=== PATIENT | male | born 1940 | race Caucasian/White ===

== ENCOUNTER 2019-03-07 05:23 | Inpatient (IN) | payer MEDICARE, OTHER ==
--- NOTE | 2019-03-07 05:32 | ED Physician Documentation ---
PD HPI Fall - Stated complaint Stated Complaint: NOSE/HEAD INJ/GLF - History obtained from History obtained from: Patient - History of Present Illness Mechanism of injury: Syncope Fall distance: Standing position Where injury occurred: Home Timing - onset: How many minutes ago (approximately 30-45 minutes [employer]) Injury(ies) location: Head, Face Pain level now: 2 Associated symptoms: No: LOC, AMS, Neck pain Contributing factors: No: Anticoagulated, Intoxicated Recently seen: Clinic (seen by his urologist 2 days ago for 1-month post-procedure f/u; patient says he was told he has a urinary infection and was prescribed cipro (has rx with him but has not started taking it yet)) - Additional information Additional information: got up to use bathroom (was in bed) and became lightheaded by the time he got to the bathroom, had generalized weakness and fell to the floor. Uncertain if he lost consciousness, says he doesn't think he did. has nasal and forehead injury with pain in these areas. Review of Systems Constitutional: reports: Reviewed and negative Eyes: denies: Loss of vision, Decreased vision Nose: reports: Other (nasal pain and laceration) Cardiac: reports: Reviewed and negative Respiratory: reports: Reviewed and negative GI: reports: Reviewed and negative : denies: Dysuria, Frequency Skin: reports: Abrasion (s) (left hand), Laceration (s) (nasal) Musculoskeletal: reports: Reviewed and negative Neurologic: reports: Generalized weakness (resolved), Headache, Head injury. denies: Focal weakness, Numbness, Confused, Altered mental status PD PAST MEDICAL HISTORY - Past Medical History Past Medical History: Yes Cardiovascular: Hypertension, High cholesterol Endocrine/Autoimmune: Type 2 diabetes - Present Medications Home Medications: Ambulatory Orders Medication Instructions Recorded Confirmed Amlodipine Besylate 10 mg PO DAILY 03/07/19 03/07/19 Atenolol 25 mg PO DAILY 03/07/19 03/07/19 Cholecalciferol (Vitamin D3) 1,000 unit PO DAILY 03/07/19 03/07/19 [Vitamin D3] Ciprofloxacin [Cipro] 250 mg PO DAILY 03/07/19 03/07/19 Finasteride 5 mg PO DAILY 03/07/19 03/07/19 Pravastatin Sodium 10 mg PO DAILY 03/07/19 03/07/19 Tamsulosin HCl [Flomax] 0.4 mg PO DAILY 03/07/19 03/07/19 hydroCHLOROthiazide 12.5 mg PO DAILY 03/07/19 03/07/19 [Hydrochlorothiazide] metFORMIN [Glucophage] 1,000 mg PO BID 03/07/19 03/07/19 - Allergies Allergies/Adverse Reactions: Allergies Allergy/AdvReac Type Severity Reaction Status Date / Time Penicillins Allergy Unknown Verified 03/07/19 05:35 - Social History Does the pt smoke?: No - Immunizations Immunizations are current?: Yes PD ED PE NORMAL - Vitals Vital signs reviewed: Yes - General General: Alert and oriented X 3, No acute distress, Well developed/nourished - HEENT HEENT: PERRL, EOMI, Moist mucous membranes - Neck Neck: Supple, no meningeal sign, Other (mild tenderness to palpation right low paracervical spine without obvious deformity) - Cardiac Cardiac: RRR, No murmur - Respiratory Respiratory: No respiratory distress, Clear bilaterally - Abdomen Abdomen: Soft, Non tender, Non distended - Back Back: No CVA TTP - Derm Derm: Normal color, Warm and dry - Extremities Extremities: No deformity, No tenderness to palpate, Normal ROM s pain, Other (skin tears to dorsum of left hand without bony tenderness) - Neuro Neuro: Alert and oriented X 3, chief minister 2-12 intact, No motor deficit, No sensory deficit, Normal speech Eye Opening: Spontaneous Motor: Obeys Commands Verbal: Oriented GCS Score: 15 PD ED PE EXPANDED - HEENT HEENT Visual: 1 - bruising (faint erythema with mild TTP) 2 - laceration (1.5cm laceration with surrounding swelling and TTP) - Rectal Rectal: Heme Occult Pos - QC + (dark black stool with strong and rapid guaiac positive reaction w/ hemoccult). No: Hemorrhoid Results - Vitals Vitals: Vital Signs - 24 hr 03/07/19 03/07/19 03/07/19 05:28 05:34 07:10 Temperature 36.0 C L Heart Rate 57 L 57 L 89 Respiratory 18 Rate Blood Pressure 137/62 H O2 Saturation 100 100 Oxygen O2 Source Room air - EKG (time done) No standard instances Rate: Rate (enter#) (92) Rhythm: NSR [place]: Normal Intervals: Normal FL QRS: Normal Ischemia: ST depression (V3-V6) - Labs Labs: Laboratory Tests 03/07/19 03/07/19 03/07/19 05:37 05:53 05:53 WBC 10.3 RBC 2.48 L Hgb 7.5 L Hct 22.2 L MCV 89.3 MCH 30.3 MCHC 34.0 RDW 15.4 H Plt Count 358 MPV 7.6 Neut # (Auto) 8.2 H Lymph # (Auto) 1.1 L [place] # (Auto) 0.8 Eos # (Auto) 0.2 Baso # (Auto) 0.0 Absolute Nucleated RBC 0.00 Nucleated RBC % 0.0 Sodium 137 Potassium 3.5 Chloride 98 L Carbon Dioxide 24 Anion Gap 15.0 H BUN 43 H Creatinine 1.4 H Estimated GFR (MDRD) 49 L Glucose 260 H POC Whole Bld Glucose 202 H Calcium 9.0 Troponin I 03/07/19 05:53 WBC RBC Hgb Hct MCV MCH MCHC RDW Plt Count MPV Neut # (Auto) Lymph # (Auto) Cedar # (Auto) Eos # (Auto) Baso # (Auto) Absolute Nucleated RBC Nucleated RBC % Sodium Potassium Chloride Carbon Dioxide Anion Gap BUN Creatinine Estimated GFR (MDRD) Glucose POC Whole Bld Glucose Calcium Troponin I < 0.04 - Rads (name of study) CT head Radiology: Prelim report reviewed, See rad report CT cervical spine Radiology: Prelim report reviewed, See rad report chest xray Radiology: Prelim report reviewed, See rad report PD MEDICAL DECISION MAKING - ED course Complexity details: reviewed results, re-evaluated patient, considered differential, d/w patient ED course: when patient was stood up for cxr, he had return of his generalized weakness and sensation he might pass out and thus he was placed back on stretcher and cxr was performed in ED as portable CXR. His blood work subsequently reveals signi ficant anemia and he has dark black stool on rectal exam that is strongly guaiac positive. There are no previous results in [facility] for comparison, and [facility] was contacted and they do not see any previous blood work in their system (he had a procedure last month at [facility], but pre-operative blood tests might have been performed at a different facility. Patient's description of the procedure sound c/w TURP). [facility]; they report that they have no beds available and thus patient can be admitted to [facility]. D/W Dr. Chiang (hospitalist at [facility]), accepts patient for admission to [facility] Departure - Departure Disposition: 66 [facility] DC/Xfer Clinical Impression: Anemia, Near syncope, Gastrointestinal bleeding, upper, Laceration Condition: Stable
[2019-03-07] MEDS ORDERED: LIDOCAINE 1% 2 ML VIAL SUBQ STA (05:52)
[2019-03-07 05:58] LABS: BASOPHILS % (AUTO) 0.3 %; EOSINOPHILS # (AUTO) 0.2 10^3/uL (0.0-0.7); EOSINOPHILS % (AUTO) 1.6 %; HGB - HEMOGLOBIN 7.5 g/dL (14.0-18.0); LYMPHOCYTES # (AUTO) 1.1 10^3/uL (1.5-3.5); LYMPHOCYTES % (AUTO) 10.6 %; MEAN CORPUSCULAR HEMOGLOBIN 30.3 pg (27.0-31.0); MEAN CORPUSCULAR VOLUME 89.3 fL (80.0-94.0); MEAN PLATELET VOLUME 7.6 fL (7.4-11.4); MONOCYTES # (AUTO) 0.8 10^3/uL (0.0-1.0); MONOCYTES % (AUTO) 7.9 %; NEUTROPHILS # (AUTO) 8.2 10^3/uL (1.5-6.6); NEUTROPHILS % (AUTO) 79.6 %; PLT - PLATELET COUNT 358 10^3/uL (130-450); RED BLOOD COUNT 2.48 10^6/uL (4.70-6.10); RED CELL DISTRIBUTION WIDTH 15.4 % (12.0-15.0); WHITE BLOOD COUNT 10.3 x10^3/uL (4.8-10.8)
[2019-03-07 06:08] LABS: CREATININE 1.4 mg/dL (0.6-1.2)
--- NOTE | 2019-03-07 06:34 | CT Report ---
Reason: syncope, head injury Procedure Date: 03/07/2019 Accession Number: [id number] / [id number] Procedure: CT - HEAD WO CPT Code: FULL RESULT: EXAM: CT HEAD EXAM DATE: 03/07/2019 06:08 AM. CLINICAL HISTORY: Syncope, head injury. COMPARISON: None. TECHNIQUE: Multiaxial CT images were obtained from the foramen magnum to the vertex. Reformats: Sagittal and coronal. IV contrast: None. In accordance with CT protocol optimization, one or more of the following dose reduction techniques were utilized for this exam: automated exposure control, adjustment of mA and/or KV based on patient size, or use of iterative reconstructive technique. FINDINGS: Parenchyma: No intraparenchymal hemorrhage. No evidence of mass, midline shift, or CT findings of acute infarction. Arrieta-white differentiation is distinct. Extraaxial Spaces: Normal for age. No subdural or epidural collections identified. Ventricles: The ventricles and cortical sulci are moderately enlarged, consistent with age-related tissue loss. Sinuses and Orbits: Postsurgical changes from cataract extractions are noted in the globes. The paranasal and mastoid sinuses are not opacified. Bones: No evidence of fracture or calvarial defect. Other: Moderate intracranial atherosclerosis is present. IMPRESSION: Generalized age-related cortical atrophic changes without evidence of acute intracranial abnormality. [facility]
--- NOTE | 2019-03-07 06:46 | CT Report ---
Reason: syncope, neck pain Procedure Date: 03/07/2019 Accession Number: [id number] / [id number] Procedure: CT - CERVICAL SPINE WO CPT Code: FULL RESULT: EXAM: CT CERVICAL SPINE WITHOUT CONTRAST DATE: 03/07/2019 06:08 AM. HISTORY: Syncope, neck pain. COMPARISONS: None. TECHNIQUE: Thin-section axial images were acquired of the cervical spine without contrast. Post-processing: Coronal and sagittal reformats. Other: None. In accordance with CT protocol optimization, one or more of the following dose reduction techniques were utilized for this exam: automated exposure control, adjustment of mA and/or KV based on patient size, or use of iterative reconstructive technique. FINDINGS: Alignment: Levoscoliosis is noted in the mid cervical region. However, no spondylolisthesis is appreciated. Bones: No acute cervical spine fracture is identified. 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 Interspace Levels/Facets: C1-C2: Moderate degenerative changes are present anteriorly without craniocervical stenosis. C2-C3: Bilateral facet arthropathy is present without spinal canal or foraminal stenosis. C3-C4: Bilateral facet arthropathy is present without spinal canal or foraminal stenosis. C4-C5: Bilateral facet arthropathy is present without spinal canal or foraminal stenosis. C5-C6: There is mild left foraminal narrowing due to uncovertebral hypertrophy and facet arthropathy. The spinal canal and right foramen are patent. C6-C7: A posterior disk osteophyte complex is present without spinal canal stenosis. There is mild left foraminal narrowing due to uncovertebral hypertrophy and facet arthropathy. The right foramen is patent. C7-T1: Left-sided facet arthropathy is present without spinal canal or foraminal stenosis. Musculature: There is moderate diffuse fatty atrophy of the posterior paraspinal muscles. Other: No acute abnormality is seen in the remaining soft tissues of the neck. The lung apices are clear. IMPRESSION: No acute cervical spine fracture. RADIA
--- NOTE | 2019-03-07 06:57 | XRAY Report ---
Reason: SOB, FAINTING Procedure Date: 03/07/2019 Accession Number: [id number] / [id number] Procedure: XR - Chest 1 View X-Ray CPT Code: 55758 FULL RESULT: EXAM: CHEST RADIOGRAPHY EXAM DATE: 03/07/2019 06:42 AM. CLINICAL HISTORY: Shortness of breath, syncope, COMPARISON: None. TECHNIQUE: 1 view. FINDINGS: Lungs/Pleura: There are a few scattered right lung calcified granulomata. No significant consolidation, effusion, or definite pneumothorax. Mediastinum: Cardiac silhouette is within normal limits when accounting for lung volumes and technique. Other: None. IMPRESSION: No acute cardiopulmonary abnormality demonstrated. A few scattered calcified right lung granulomata. RADIA
[2019-03-07] MEDS ORDERED: TEMAZEPAM 15 MG CAPSULE PO PRN (07:37)
[2019-03-07] MEDS ORDERED: ACETAMINOPHEN 325 MG TABLET PO PRN (07:37)
--- NOTE | 2019-03-07 07:43 | HISTORY & PHYSICAL EXAMINATION ---
Chief Complaint - Chief Complaint Chief Complaint: syncope and collapse History of Present Illness - Admitted From Admitted From:: ED - History Obtained From Records Reviewed: yes History obtained from: chart review, patient Exam Limitations: AMS - History of Present Illness HPI Comment/Other: Rishabh Moon is a 79-year old male with a past medical history of malaria while in [place] in the , bulbar urethral stricture disease, recurrent UTI, urinary retention, nocturia, status post urethrotomy, long standing tobacco dependence- quit ~5 years ago, non-insulin dependent diabetes mellitus type 2, essential hypertension, hyperlipidemia, and left inguinal hernia repair in the year 1999. The patient states that on Monday (March 04), he had an episode while in the kitchen in which he did not loose consciousness, but fell to the floor "like butter" and did not sustain any injuries. This morning, (March 07) a similar episode happened, but this time he hit his head on the bathroom counter top as he was getting up to urinate around 4AM. He does not necessarily remember hitting his face or scrapping his left arm, but states that for both of these episodes, he was conscious. Since this was the second episode in a short time, his sister Sabi brought him into the ED. Once arriving in the ED the patient admits to recent black stools which started about one week ago, poor appetite that seems to come and go since Monday, increased dizziness, lethargy and some shortness of breath with ambulation. He also states that he has neck pain since the fall this morning. All imaging including cervical spine, head, a nd a chest x-ray shows no fractures or evidence of bleeding. He has a laceration to his right nose, left elbow and left fore hand in which dressings and steri-strips have been applied. Labs show a normal WBC count of 10.3, hgb 7.5, hct 22.2, MCV 89.3, plt count 358, neut # 8.2, sodium 137, potassium 3.5, chloride 98, anion gap 15, BUN 43, creatinine 1.4, GFR 49, glucose 260, calcium 9.0, and a normal troponin of 0.04. Vital signs were normal with a temp of 36.0 C, heart rate of 57, respiratory rate of 18, blood pressure of 137/62 and oxygen saturation of 100% on room air. On my exam, he appears pale, with poor capillary refill in all extremity nail beds, can speak in full sentences, and is not dizzy while lying in bed. He states that he saw his PCP a few days ago, who started him on Cipro, but since having to take his sister, Sabi up to [place], he has not started those pills yet. He states that he has been given home cath kits since he requires straight cath daily. A general surgery consult has been made, and Dr. Sylevster will plan to see the patient for further investigation of this suspected upper GI bleeding with the patient's reports of black stools and his apparent loss of blood. History - Past Medical History Cardiovascular: reports: Hypertension, High cholesterol Respiratory: reports: COPD, Emphysema Neuro: reports: Fainting Endocrine/Autoimmune: reports: Type 2 diabetes GI: reports: None [place]: reports: None : reports: Chronic bladder infection, Renal insuffiency, Nocturia, Frequency, Other (bulbar urethral strictures) HEENT: reports: Chronic vision loss, Chronic sinusitis Psych: reports: None Musculoskeletal: reports: Fatigue Derm: reports: None MRSA Hx?: No Other Past Medical History: Malaria in [place] - Past Surgical History General: reports: Other (left inguinal hernia repair in the year 1999) HEENT: reports: Cataracts Other past surgical history: Cystoscopy, vision internal urethrotomy on 01/21/2019 at [facility] urology - Family & Social History Family History: Mother: , Father: Living arrangement: At home Living Situation: With family (Lives with his sister, Sabi) Social History Notes: The patient was in the [employer] from [id number]. He lived in [facility] for much of his life and worked for a [employer]. He has been retired for at least 10 years and has been living with his sister in [place] for the past 6 years. He continues to be independent with his ADLs, is active each day, and drives a car. He admits to long standing tobacco dependence from age [age] years in which he smoked 2 PPD. He denies alcohol or illicit drug use. He wishes to be a FULL code. - Substance History Use: Uses substance without health or social issues: NONE Abuse: Recurrent use of substance despite neg consequences: NONE Dependence: Experiences withdrawal or developed tolerances: NONE - POLST Patient has POLST: No POLST Status: Full Code Meds/Allgy - Home Medications Home Medications: Ambulatory Orders Medication Instructions Recorded Confirmed Amlodipine Besylate 10 mg PO DAILY 03/07/19 03/07/19 Atenolol 25 mg PO BID 03/07/19 03/07/19 Cholecalciferol (Vitamin D3) 2,000 unit PO DAILY 03/07/19 03/07/19 [Vitamin D3] Ciprofloxacin HCl 250 mg PO [id number] 03/07/19 03/07/19 Finasteride 5 mg PO DAILY 03/07/19 03/07/19 Metformin HCl [Metformin HCl ER] 1,000 mg PO Q12H 03/07/19 03/07/19 Pravastatin Sodium 10 mg PO DAILY 03/07/19 03/07/19 Spironolact/Hydrochlorothiazid 1 tab PO DAILY 03/07/19 03/07/19 [Spironolactone-Hctz 25-25 Tab] Tamsulosin HCl [Flomax] 0.4 mg PO QPM 03/07/19 03/07/19 - Allergies Allergies/Adverse Reactions: Allergies Allergy/AdvReac Type Severity Reaction Status Date / Time Penicillins Allergy Unknown Verified 03/07/19 05:35 Review of Systems - Constitutional Constitutional: reports: Fatigue, Weakness, Poor appetite - Eyes Eyes: reports: Vision loss - Ears, Nose & Throat Ears, Nose & Throat: reports: Hearing loss, Postnasal drainage, Dentures - Cardiovascular Cariovascular: reports: Lightheadedness, Syncope, Exertional dyspnea - Respiratory Respiratory: reports: SOB with exertion - Gastrointestinal Gastrointestinal: reports: Abdominal pain, Change in bowel habits, Black stools, Poor appetite - Genitourinary Genitourinary: reports: Dysuria, Frequency, Nocturia, Other (requires daily home straight caths) - Musculoskeletal Musculoskeletal: reports: Back pain, Muscle aches - Integumentary Integumentary: reports: Lesions (related to his current fall episode; right nose, right upper forehead, left elbow, and left fore hand), Dryness - Neurological Neurological: reports: General weakness, Dizziness, Pre-existing deficit - Hematologic/Lymphatic Hematologic/Lymphatic: reports: Anemia, Bruising, Recurrent infections - All Other Systems All Other Systems: reports: Reviewed and negative Prior Level of Functionality: Independent with ADLs, drives a car. 2 falls at home prior to admission. No use of a cane or a walker at home. Exam - Vital Signs Reviewed Vital Signs: Yes Vital Signs: Vital Signs x48h Temp Pulse Resp BP Pulse Ox 03/07/19 07:10 89 100 03/07/19 05:34 57 L 03/07/19 05:28 36.0 C L 57 L 18 137/62 H 100 - Physical Exam General Appearance: positive: No acute distress, Alert Eyes Bilateral: positive: PERRL ENT: positive: Pharynx nml, No signs of dehydration Neck: positive: Thyroid nml, No JVD, Trachea midline Respiratory: positive: Chest non-tender, No respiratory distress, Breath sounds nml Cardiovascular: positive: Regular rate & rhythm, No gallop, Systolic murmur Peripheral Pulses: positive: 2+ Abdomen: positive: Tenderness, Guarding, Abnml bowel sounds, Other (rounded, soft) Back: positive: Nml inspection Skin: positive: No rash, Warm, Cyanosis (finger tips of BUEs), Pallor Extremities: positive: Non-tender, Full ROM, Nml appearance, No pedal edema Neurologic/Psychiatric: positive: Oriented x3, CN's nml (2-12), Motor nml, Sensation nml, Mood/affect nml Reflexes: Bicep (R): 4+, Bicep (L): 4+ Conclusion/Plan - Problem List (1) Syncope and collapse Conclusion/Plan: - First episode on March 04 in which he fell to the floor "like butter" and denies loss of consciousness - Awoke this morning March 07, while on his way to the bathroom; his usual routine, fell against the bathroom counter top and again denied loss of consciousness - Slight systolic murmur on exam in the aortic region - Denies previous episodes - Recent exacerbating factor of a current UTI- not yet starting antibiotics due to life conflicts - The most likely cause of these events are; upper GI bleeding with the patient's reports of poor appetite, and black stools that began about 1 week ago Plan: Echocardiogram, monitor on telemetry, give PRBCs, and await GI consult with Dr. Sylvester, possible EGD today, Orthostatics after EGD (2) Gastrointestinal bleeding, upper Conclusion/Plan: -Denies recent NSAID use - Admits to coffee use - Admits to a recent change in his diet with eating out more - Poor appetite for the past few days - No nausea, vomiting, or diarrhea - Admits to recent "black" stools that began maybe a week ago - History of malaria in the 1960's - Denies a history of H. Pylori - Denies prior colonoscopy or EGDs Plan: EGD today depending scheduling, GI consult with Dr. Sylvester, continue CL diet, PPI IV and replace blood with serial H/Hs (3) Anemia Conclusion/Plan: - Unknown prior H/H trends - Found to have normocytic anemia with an H/H of 7.5/22.2 - Reports of tarry, black stools for at least one week - Denies hemorrhoids, rectal bleeding or hematemesis - Pale on exam with poor cap refill Plan: Transfuse one unit of PRBCs, await EGD results, general surgery consult, serial H/Hs Qualifiers: Anemia type: unspecified type Qualified Code(s): D64.9 - Anemia, unspecified (4) Diabetes mellitus type 2, controlled Conclusion/Plan: - Metformin at home, now on hold - Reports blood sugars at home have been running around 126, he checks his sugar daily - Reports a recent change in diet - Poor appetite for the past few days Plan: Hold Metformin, start SSI, Lantus low dose 5 units nightly, clear liquid diet for now, await HgA1C Qualifiers: Diabetes mellitus detention insulin use: without buttermaker use (5) Dizziness Conclusion/Plan: - Intermittent, most evident this morning just prior to the fall that led to this admission - Blood pressures light, 113/54 Plan: Strict bedrest, orthostatics after EGD and when he is stable (6) Laceration Conclusion/Plan: - Upon arrival to the ED the patient had a right nose laceration, and a right upper forehead laceration - Steri-strips to cover the nose wound - Left elbow skin tear, left nathan skin tear- both covered with dressings - Also with scattered bruising to BUEs Plan: Request pictures for the chart, monitor for infection (7) Bulbous urethral stricture Conclusion/Plan: - Outside records requested from the patient's last urology visit at [facility] - On 01/21/2019 the patient underwent a Visual urethrotomy, with catheter placement - 2 Bulbar urethral strictures were found located close to the external urinary sphincter - 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, bladder 1-2+ trabeculation - No stones, tumors, or foreign bodies appreciated Plan: Follow patient's home straight cath schedule, bladder scans Q shift, treat current UTI using IV cipro (8) Essential hypertension Conclusion/Plan: - Home meds include: Norvasc, atenolol, flomax, and finasteride - On hold in light of acute illness - Blood pressures light at 115/54 Plan: Continue blood transfusion with 1 unit, then serial H/H, resume meds once stable (9) Hyperlipidemia associated with type 2 diabetes mellitus Conclusion/Plan: - Patient is prescribed Pravastatin sodium at home, now on hold - NPO for upcoming EGD Plan: Check LFTs in the AM, resume upon discharge (10) Recurrent UTI (urinary tract infection) Conclusion/Plan: - UA is pending - Recently diagnosed with UTI by PCP, unknown culture results - Recurrent with the complicating factor of his known urethral stricture - No mention of BPH Plan: Indwelling phelan if bladder scans are greater than 500 mL, straight cath as patient's usual home routine (11) Nocturia more than twice per night Conclusion/Plan: - Patient admits to at least 2-3 times each night of getting up to urinate - This has been for the past several years - No known history of BPH - Takes flomax, finasteride at home for urethral stricture disease Plan: Hold meds for nephrotoxicity, follow patient's straight cath schedule (12) CKD (chronic kidney disease) stage 3, GFR 30-59 ml/min Conclusion/Plan: - Patient has a known history of this - Current GFR is down to 49 - Unknown baseline creatinine - Admission creatinine elevated at 1.4 Plan: Hold nephrotoxins, give IV fluids, monitor labs, resume meds upon discharge - Lab Results Lab results reviewed: Yes Fish Bones: 03/07/19 05:53 03/07/19 05:53 - Diagnostic Imaging Results Diagnostic Imaging Results: positive: Final report reviewed Diagnostic Imaging Results Comments: EXAM: CT HEAD EXAM DATE: 03/07/2019 06:08 AM IMPRESSION: Generalized age-related cortical atrophic changes without evidence of acute intracranial abnormality. EXAM: CT CERVICAL SPINE WITHOUT CONTRAST DATE: 03/07/2019 06:08 AM FINDINGS: Alignment: Levoscoliosis is noted in the mid cervical region. However, no spondylolisthesis is appreciated. Bones: No acute cervical spine fracture is identified. 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 Interspace Levels/Facets: C1-C2: Moderate degenerative changes are present anteriorly without craniocervical stenosis. C2-C3: Bilateral facet arthropathy is present without spinal canal or foraminal stenosis. C3-C4: Bilateral facet arthropathy is present without spinal canal or foraminal stenosis. C4-C5: Bilateral facet arthropathy is present without spinal canal or foraminal stenosis. C5-C6: There is mild left foraminal narrowing due to uncovertebral hypertrophy and facet arthropathy. The spinal canal and right foramen are patent. C6-C7: A posterior disk osteophyte complex is present without spinal canal stenosis. There is mild left foraminal narrowing due to uncovertebral hypertrophy and facet arthropathy. The right foramen is patent. C7-T1: Left-sided facet arthropathy is present without spinal canal or foraminal stenosis. Musculature: There is moderate diffuse fatty atrophy of the posterior paraspinal muscles. Other: No acute abnormality is seen in the remaining soft tissues of the neck. The lung apices are clear. IMPRESSION: No acute cervical spine fracture. EXAM: CHEST RADIOGRAPHY EXAM DATE: 03/07/2019 06:42 AM FINDINGS: Lungs/Pleura: There are a few scattered right lung calcified granulomata. No significant consolidation, effusion, or definite pneumothorax. Mediastinum: Cardiac silhouette is within normal limits when accounting for lung volumes and technique. Other: None. IMPRESSION: No acute cardiopulmonary abnormality demonstrated. A few scattered calcified right lung granulomata. Core Measures - Anticipated LOS I expect patient to be DC'd or transferred within 96 hours.: Yes - DVT/VTE - Prophylaxis VTE/DVT Device ordered at admit?: Yes VTE/DVT Prophylaxis med ordered at admit?: No Not Ordered - Medical Reason: Contraindicated - Stroke - Rehab Assessment Rehab services assessment to be ordered?: No Not Ordered - Medical Reason: Contraindicated - AMI - Statin at Admit Aspirin Prescribed on Admit: No Not Ordered - Medical Reason: Contraindicated
[2019-03-07] MEDS ORDERED: SODIUM CHLORIDE 0.9% 1,000 ML IV SCH (08:00)
[2019-03-07] MEDS ORDERED: CIPROFLOXACIN HCL 250 MG PO SCH (10:30)
--- NOTE | 2019-03-07 11:15 | ANESTHESIA ---
Pre-Anesthesia VS, & Labs - Diagnosis GI bleed - Procedure EGD Vital Signs: Temp Pulse Resp BP Pulse Ox 36.6 C 84 16 126/61 98 03/07/19 09:15 03/07/19 10:00 03/07/19 10:00 03/07/19 10:00 03/07/19 10:00 Height 5 ft 11 in Weight (kg) 68.9 kg Body Mass Index 21.2 - NPO >8 hours - Lab Results Current Lab Results: Laboratory Tests 03/07/19 06:28: Blood Type O POSITIVE, Antibody Screen NEGATIVE, Crossmatch IS Only See Detail 03/07/19 05:53: Blood Type Recheck O POSITIVE 03/07/19 05:53: Troponin I < 0.04 03/07/19 05:53: Sodium 137, Potassium 3.5, Chloride 98 L, Carbon Dioxide 24, Anion Gap 15.0 H, BUN 43 H, Creatinine 1.4 H, Estimated GFR (MDRD) 49 L, Glucose 260 H, Calcium 9.0 03/07/19 05:53: WBC 10.3, RBC 2.48 L, Hgb 7.5 L, Hct 22.2 L, MCV 89.3, MCH 30.3, MCHC 34.0, RDW 15.4 H, Plt Count 358, MPV 7.6, Neut # (Auto) 8.2 H, Lymph # (Auto) 1.1 L, [place] # (Auto) 0.8, Eos # (Auto) 0.2, Baso # (Auto) 0.0, Absolute Nucleated RBC 0.00, Nucleated RBC % 0.0 03/07/19 05:37: POC Whole Bld Glucose 202 H Lab results reviewed: Yes Fish Bones: 03/07/19 05:53 03/07/19 05:53 Home Medications and Allergies Home Medications: Ambulatory Orders Amlodipine Besylate 10 mg PO DAILY 03/07/19 Atenolol 25 mg PO BID 03/07/19 Cholecalciferol (Vitamin D3) [Vitamin D3] 2,000 unit PO DAILY 03/07/19 Ciprofloxacin HCl 250 mg PO [id number] 03/07/19 Finasteride 5 mg PO DAILY 03/07/19 Metformin HCl [Metformin HCl ER] 1,000 mg PO Q12H 03/07/19 Pravastatin Sodium 10 mg PO DAILY 03/07/19 Spironolact/Hydrochlorothiazid [Spironolactone-Hctz 25-25 Tab] 1 tab PO DAILY 03/07/19 Tamsulosin HCl [Flomax] 0.4 mg PO QPM 03/07/19 Active Medications Acetaminophen (Tylenol) 650 mg PO Q4HR PRN PRN Reason: Pain 1 to 4 Sodium Chloride (Normal Saline 0.9%) 1,000 mls @ 50 mls/hr IV .Q20H JOSÉ MIGUEL Ciprofloxacin (Cipro 400 Mg/200 Ml) 200 mls @ 200 mls/hr IV Q12H JOSÉ MIGUEL Insulin Aspart (Novolog) 1 - 5 unit SUBQ 0800,1200,1700,2100 JOSÉ MIGUEL; Protocol Insulin Glargine (Lantus Solostar) 5 unit SUBQ QPM JOSÉ MIGUEL Lidocaine HCl (Xylocaine Uro-Jet 2%) 2.5 ml UR Q6H PRN PRN Reason: PAIN Pantoprazole Sodium (Protonix) 40 mg IVP QDAC JOSÉ MIGUEL Polyethylene Glycol (Miralax) 17 gm PO DAILY JOSÉ MIGUEL Sodium Chloride (Normal Saline Flush 0.9%) 10 ml IVP PRN PRN PRN Reason: NEEDED PER PROVIDER ORDERS Sodium Chloride (Normal Saline Flush 0.9%) 10 ml IVP 0100,0900,1700 JOSÉ MIGUEL Temazepam (Restoril) 15 mg PO QPM PRN PRN Reason: Insomnia Amlodipine Besylate 10 mg PO DAILY 03/07/19 Atenolol 25 mg PO BID 03/07/19 Cholecalciferol (Vitamin D3) [Vitamin D3] 2,000 unit PO DAILY 03/07/19 Ciprofloxacin HCl 250 mg PO [id number] 03/07/19 Finasteride 5 mg PO DAILY 03/07/19 Metformin HCl [Metformin HCl ER] 1,000 mg PO Q12H 03/07/19 Pravastatin Sodium 10 mg PO DAILY 03/07/19 Spironolact/Hydrochlorothiazid [Spironolactone-Hctz 25-25 Tab] 1 tab PO DAILY 03/07/19 Tamsulosin HCl [Flomax] 0.4 mg PO QPM 03/07/19 Allergies/Adverse Reactions: Allergies Allergy/AdvReac Type Severity Reaction Status Date / Time Penicillins Allergy Unknown Verified 03/07/19 05:35 Anes History & Medical History - Anesthetic History Anesthesia Complications: reports: No previous complications Family history of Anesthesia Complications: Denies Family history of Malignant Hyperthermia: Denies - Medical History Cardiovascular: reports: Hypertension, High cholesterol Pulmonary: reports: COPD, Emphysema Gastrointestinal: reports: None Urinary: reports: Chronic bladder infection, Renal insuffiency, Nocturia, Freq uency, Other (bulbar urethral strictures) Neuro: reports: Fainting Musculoskeletal: reports: Fatigue Endocrine/Autoimmune: reports: Type 2 diabetes Skin: reports: None Smoking Status: Former smoker Other Past Medical History: Malaria in [place] - Surgical History General: Other (left inguinal hernia repair in the year 1999) Eyes Ears Nose Throat (EENT): Cataracts Other Past Surgical History: Cystoscopy, vision internal urethrotomy on 01/21/2019 at [facility] urology Exam General: Alert, Oriented x3, Cooperative Dental: Dentures full Upper, Dentures full Lower Mouth Openin Fingerbreadth Neck Mobility: Normal Mallampati classification: II Thyromental Distance: 4-6 cm Respiratory: Lungs clear, Normal breath sounds Cardiovascular: Regular rate Neurological: Normal speech Mental/Cognitive Status: Alert/Oriented X3, Normal for patient Cognitive Status: Within normal limits Plan Anesthesia Type: MAC Consent for Procedure(s) Verified and Reviewed: Yes Code Status: Attempt Resuscitation ASA classification: 2-Mild systemic disease Is this case an emergency?: Yes
[2019-03-07] MEDS: INSULIN ASPART 300 UNIT/3 ML PEN SUBQ SCH ×3 (11:40→20:52)
[2019-03-07 11:49] LABS: BILIRUBIN,URINE NEGATIVE (NEGATIVE); GLUCOSE, URINE (UA) 500 mg/dL (NEGATIVE); KETONES,URINE (UA) NEGATIVE (NEGATIVE); LEUKOCYTE ESTERASE, URINE SMALL (NEGATIVE); NITRITE,URINE NEGATIVE (NEGATIVE); OCCULT BLOOD,URINE TRACE-LYSE (NEGATIVE); PH,URINE 5.5 PH (5.0-7.5); PROTEIN,URINE TRACE mg/dL (NEGATIVE); UROBILINOGEN,URINE 0.2 (NORMAL) E.U./dL (NORMAL)
[2019-03-07 11:53] LABS: CLARITY,URINE CLOUDY (CLEAR)
[2019-03-07 12:02] LABS: BACTERIA,URINE Moderate /HPF (None Seen); RBC,URINE 0-5 /HPF (0-5); SQUAMOUS EPITHELIAL CELL,UR NONE SEEN (<= Few); WBC CLUMPS,URINE PRESENT
[2019-03-07] MEDS: PANTOPRAZOLE 40 MG VIAL IVP SCH (12:12)
[2019-03-07] MEDS ORDERED: LIDO GARGLE 30 ML BOTTLE ONE (13:44)
[2019-03-07] MEDS ORDERED: KETAMINE 500 MG/10 ML VIAL IVP ONE (14:00)
[2019-03-07] MEDS ORDERED: CIPROFLOXACIN 400 MG/200 ML 200 ML IV SCH (14:00)
[2019-03-07] MEDS ORDERED: PROPOFOL 200 MG/20 ML VIAL IVP ONE (14:00)
[2019-03-07] MEDS ORDERED: MIDAZOLAM 2 MG/2 ML VIAL IVP ONE (14:00)
[2019-03-07] MEDS: POLYETHYLENE GLYCOL 3350 17 GM PACKET PO SCH (14:43)
[2019-03-07] MEDS ORDERED: SODIUM CHLORIDE 0.9% 1,000 ML IV ONE (14:46)
[2019-03-07] MEDS: SODIUM CHLORIDE FLUSH 0.9% 10 ML SYRINGE IVP SCH ×2 (16:20→17:37)
[2019-03-07] MEDS: CIPROFLOXACIN 400 MG/200 ML 200 ML IV SCH (16:26)
[2019-03-07 20:18] LABS: HB2 TOTAL 7.8 g/dL; HEMOGLOBIN A1C 0.54 g/dL; HEMOGLOBIN A1C % 8.5 % (4.6-6.2)
[2019-03-07] MEDS: INSULIN GLARGINE 300 UNIT/3 ML PEN SUBQ SCH (20:52)
[2019-03-08] MEDS: SODIUM CHLORIDE FLUSH 0.9% 10 ML SYRINGE IVP SCH ×3 (01:00→16:14)
[2019-03-08] MEDS: CIPROFLOXACIN 400 MG/200 ML 200 ML IV SCH ×2 (03:11→16:14)
[2019-03-08 05:35] LABS: BASOPHILS % (AUTO) 0.3 %; EOSINOPHILS # (AUTO) 0.1 10^3/uL (0.0-0.7); EOSINOPHILS % (AUTO) 1.6 %; HGB - HEMOGLOBIN 7.4 g/dL (14.0-18.0); LYMPHOCYTES # (AUTO) 1.1 10^3/uL (1.5-3.5); LYMPHOCYTES % (AUTO) 14.4 %; MEAN CORPUSCULAR HEMOGLOBIN 29.6 pg (27.0-31.0); MEAN CORPUSCULAR HGB CONC 33.6 g/dL (32.0-36.0); MEAN CORPUSCULAR VOLUME 88.3 fL (80.0-94.0); MEAN PLATELET VOLUME 7.6 fL (7.4-11.4); MONOCYTES # (AUTO) 0.7 10^3/uL (0.0-1.0); MONOCYTES % (AUTO) 9.3 %; NEUTROPHILS # (AUTO) 5.8 10^3/uL (1.5-6.6); NEUTROPHILS % (AUTO) 74.4 %; PLT - PLATELET COUNT 303 10^3/uL (130-450); RED BLOOD COUNT 2.51 10^6/uL (4.70-6.10); RED CELL DISTRIBUTION WIDTH 16.3 % (12.0-15.0); WHITE BLOOD COUNT 7.8 x10^3/uL (4.8-10.8)
[2019-03-08 05:50] LABS: ALBUMIN 2.8 g/dL (3.2-5.5); BILIRUBIN,TOTAL 0.2 mg/dL (0.2-1.0); CALCIUM 8.2 mg/dL (8.5-10.3); CREATININE 1.2 mg/dL (0.6-1.2); MAGNESIUM 1.6 mg/dL (1.7-2.8); PHOSPHORUS 3.1 mg/dL (2.5-4.6); TOTAL PROTEIN 5.7 g/dL (6.7-8.2)
[2019-03-08] MEDS: PANTOPRAZOLE 40 MG VIAL IVP SCH (06:24)
[2019-03-08] MEDS: ATENOLOL 25 MG TABLET PO SCH ×2 (10:11→20:43)
[2019-03-08] MEDS: INSULIN ASPART 300 UNIT/3 ML PEN SUBQ SCH ×4 (10:13→20:44)
[2019-03-08] MEDS: POLYETHYLENE GLYCOL 3350 17 GM PACKET PO SCH (12:17)
--- NOTE | 2019-03-08 12:31 | PROVIDER PROGRESS NOTE ---
Subjective - Prog Note Date Prog Note Date: 03/08/19 Prog Note Time: 12:31 - Subjective Pt reports feeling: Improved Subjective: Rishabh has no complaints, except for the specifics regarding medication changes for his upcoming discharge. I sat with him to explain his diagnosis of IHSS and the most appropriate way to treat this condition. Also it is proving to be the most likely cause of his recent syncope in the setting of acute illness/dehydration. He denies headaches, chest pain, nausea, vomiting, diarrhea, shortness of breath, a new rash, or a new cough. He states that he has improved energy since getting the blood transfusion. Current Medications - Current Medications Current Medications: Active Medications: Acetaminophen (Tylenol) 650 mg PO Q4HR PRN Atenolol (Tenormin) 25 mg PO BID JOSÉ MIGUEL Ciprofloxacin (Cipro 400 Mg/200 Ml) 200 mls @ 200 mls/hr IV Q12H JOSÉ MIGUEL Insulin Aspart (Novolog) 1 - 5 unit SUBQ 0800,1200,1700,2100 JOSÉ MIGUEL; Protocol Insulin Glargine (Lantus Solostar) 5 unit SUBQ QPM JOSÉ MIGUEL Lidocaine HCl (Xylocaine Uro-Jet 2%) 2.5 ml UR Q6H PRN Magnesium Oxide (Mag Ox) 400 mg PO BIDWM JOSÉ MIGUEL Pantoprazole Sodium (Protonix) 40 mg IVP QDAC JOSÉ MIGUEL Polyethylene Glycol (Miralax) 17 gm PO DAILY JOSÉ MIGUEL Temazepam (Restoril) 15 mg PO QPM PRN HOME meds: Amlodipine Besylate 10 mg PO DAILY 03/07/19 Atenolol 25 mg PO BID 03/07/19 Cholecalciferol (Vitamin D3) [Vitamin D3] 2,000 unit PO DAILY 03/07/19 Ciprofloxacin HCl 250 mg PO [id number] 03/07/19 Finasteride 5 mg PO DAILY 03/07/19 Metformin HCl [Metformin HCl ER] 1,000 mg PO Q12H 03/07/19 Pravastatin Sodium 10 mg PO DAILY 03/07/19 Spironolact/Hydrochlorothiazid [Spironolactone-Hctz 25-25 Tab] 1 tab PO DAILY 03/07/19 Tamsulosin HCl [Flomax] 0.4 mg PO QPM 03/07/19 Objective - Vital Signs/Intake & Output Reviewed Vital Signs: Yes Vital Signs: Vital Signs x48h Temp Pulse Pulse Pulse Pulse Resp BP 03/08/19 10:37 90 109 H 80 03/08/19 08:54 36.7 C 74 18 113/50 L BP BP BP Pulse Ox 03/08/19 10:37 121/63 135/56 H 130/53 L 03/08/19 08:54 97 Intake & Output: Intake & Output 03/05/19 03/06/19 03/07/19 03/08/19 23:59 23:59 23:59 23:59 Intake Total 1330 1650 Output Total 1450 875 Balance -120 775 - Objective General Appearance: positive: No acute distress, Alert Eyes Bilateral: positive: PERRL ENT: positive: Pharynx nml, No signs of dehydration Neck: positive: Thyroid nml, No JVD, Trachea midline Respiratory: positive: Chest non-tender, No respiratory distress, Breath sounds nml Cardiovascular: positive: Regular rate & rhythm, No gallop, Systolic murmur Peripheral Pulses: 2+ Radial (R), 2+ Radial (L) Abdomen: positive: Non-tender, Nml bowel sounds, Guarding, Other (rounded, soft) Back: positive: Nml inspection Skin: positive: No rash, Warm, Dry, Pallor Extremities: positive: Non-tender, Full ROM, Nml appearance, No pedal edema Neurologic/Psychiatric: positive: Oriented x3, CN's nml (2-12), Motor nml, Sensation nml, Mood/affect nml Reflexes: Bicep (R): 3+, Bicep (L): 3+ - Lab Results Fish Bones: 03/08/19 05:10 03/08/19 05:10 Other Labs: Lab Results x24hrs 03/08/19 03/08/19 03/08/19 Range/Units 11:43 08:07 05:10 WBC (4.8-10.8) x10^3/uL RBC (4.70-6.10) 10^6/uL Hgb (14.0-18.0) g/dL Hct (42.0-52.0) % MCV (80.0-94.0) fL MCH (27.0-31.0) pg MCHC (32.0-36.0) g/dL RDW (12.0-15.0) % Plt Count (130-450) 10^3/uL MPV (7.4-11.4) fL Neut # (Auto) (1.5-6.6) 10^3/uL Lymph # (Auto) (1.5-3.5) 10^3/uL [place] # (Auto) (0.0-1.0) 10^3/uL Eos # (Auto) (0.0-0.7) 10^3/uL Baso # (Auto) (0.0-0.1) 10^3/uL Absolute Nucleated RBC x10^3/uL Nucleated RBC % /100WBC Sodium (135-145) mmol/L Potassium (3.5-5.0) mmol/L Chloride (101-111) mmol/L Carbon Dioxide (21-32) mmol/L Anion Gap (6-13) BUN (6-20) mg/dL Creatinine (0.6-1.2) mg/dL Estimated GFR (MDRD) (>89) Glucose (70-100) mg/dL POC Whole Bld Glucose 237 H 171 H (70 - 100) mg/dL Glycated Hemoglobin (4.6-6.2) % Estim Average Glucose (70-100) Calcium (8.5-10.3) mg/dL Phosphorus (2.5-4.6) mg/dL Magnesium (1.7-2.8) mg/dL Total Bilirubin (0.2-1.0) mg/dL AST (10-42) IU/L ALT (10-60) IU/L Alkaline Phosphatase (42-121) IU/L B-Natriuretic Peptide (5-100) pg/mL Total Protein (6.7-8.2) g/dL Albumin (3.2-5.5) g/dL Globulin (2.1-4.2) g/dL Albumin/Globulin Ratio (1.0-2.2) TSH 2.80 (0.34-5.60) uIU/mL 03/08/19 03/08/19 03/08/19 Range/Units 05:10 05:10 05:10 WBC 7.8 (4.8-10.8) x10^3/uL RBC 2.51 L (4.70-6.10) 10^6/uL Hgb 7.4 L (14.0-18.0) g/dL Hct 22.1 L (42.0-52.0) % MCV 88.3 (80.0-94.0) fL MCH 29.6 (27.0-31.0) pg MCHC 33.6 (32.0-36.0) g/dL RDW 16.3 H (12.0-15.0) % Plt Count 303 (130-450) 10^3/uL MPV 7.6 (7.4-11.4) fL Neut # (Auto) 5.8 (1.5-6.6) 10^3/uL Lymph # (Auto) 1.1 L (1.5-3.5) 10^3/uL [place] # (Auto) 0.7 (0.0-1.0) 10^3/uL Eos # (Auto) 0.1 (0.0-0.7) 10^3/uL Baso # (Auto) 0.0 (0.0-0.1) 10^3/uL Absolute Nucleated RBC 0.01 x10^3/uL Nucleated RBC % 0.1 /100WBC Sodium 139 (135-145) mmol/L Potassium 3.3 L (3.5-5.0) mmol/L Chloride 102 (101-111) mmol/L Carbon Dioxide 25 (21-32) mmol/L Anion Gap 12.0 (6-13) BUN 29 H (6-20) mg/dL Creatinine 1.2 (0.6-1.2) mg/dL Estimated GFR (MDRD) 59 L (>89) Glucose 169 H (70-100) mg/dL POC Whole Bld Glucose (70 - 100) mg/dL Glycated Hemoglobin (4.6-6.2) % Estim Average Glucose (70-100) Calcium 8.2 L (8.5-10.3) mg/dL Phosphorus 3.1 (2.5-4.6) mg/dL Magnesium 1.6 L (1.7-2.8) mg/dL Total Bilirubin 0.2 (0.2-1.0) mg/dL AST 16 (10-42) IU/L ALT 10 (10-60) IU/L Alkaline Phosphatase 56 (42-121) IU/L B-Natriuretic Peptide 125 H (5-100) pg/mL Total Protein 5.7 L (6.7-8.2) g/dL Albumin 2.8 L (3.2-5.5) g/dL Globulin 2.9 (2.1-4.2) g/dL Albumin/Globulin Ratio 1.0 (1.0-2.2) TSH (0.34-5.60) uIU/mL 03/07/19 03/07/19 03/07/19 Range/Units 20:20 16:32 05:53 WBC (4.8-10.8) x10^3/uL RBC (4.70-6.10) 10^6/uL Hgb (14.0-18.0) g/dL Hct (42.0-52.0) % MCV (80.0-94.0) fL MCH (27.0-31.0) pg MCHC (32.0-36.0) g/dL RDW (12.0-15.0) % Plt Count (130-450) 10^3/uL MPV (7.4-11.4) fL Neut # (Auto) (1.5-6.6) 10^3/uL Lymph # (Auto) (1.5-3.5) 10^3/uL [place] # (Auto) (0.0-1.0) 10^3/uL Eos # (Auto) (0.0-0.7) 10^3/uL Baso # (Auto) (0.0-0.1) 10^3/uL Absolute Nucleated RBC x10^3/uL Nucleated RBC % /100WBC Sodium (135-145) mmol/L Potassium (3.5-5.0) mmol/L Chloride (101-111) mmol/L Carbon Dioxide (21-32) mmol/L Anion Gap (6-13) BUN (6-20) mg/dL Creatinine (0.6-1.2) mg/dL Estimated GFR (MDRD) (>89) Glucose (70-100) mg/dL POC Whole Bld Glucose 170 H 103 H (70 - 100) mg/dL Glycated Hemoglobin 8.5 H (4.6-6.2) % Estim Average Glucose 197 H (70-100) Calcium (8.5-10.3) mg/dL Phosphorus (2.5-4.6) mg/dL Magnesium (1.7-2.8) mg/dL Total Bilirubin (0.2-1.0) mg/dL AST (10-42) IU/L ALT (10-60) IU/L Alkaline Phosphatase (42-121) IU/L B-Natriuretic Peptide (5-100) pg/mL Total Protein (6.7-8.2) g/dL Albumin (3.2-5.5) g/dL Globulin (2.1-4.2) g/dL Albumin/Globulin Ratio (1.0-2.2) TSH (0.34-5.60) uIU/mL - Diagnostic Imaging Diagnostic Imaging Results: positive: Final report reviewed Diagnostic Imaging Comments: EXAM: CT ABDOMEN AND PELVIS EXAM DATE: 03/08/2019 02:22 PM FINDINGS: Lung Bases: Unremarkable. Liver: Normal. No masses. Gallbladder/Bile Ducts: Unremarkable. Spleen: Normal. Pancreas: Normal. Adrenal Glands: Normal. Kidneys: Right renal cyst. No hydronephrosis or calculi. Peritoneal Cavity/Bowel: Normal. No free fluid, free air or adenopathy. No masses or acute inflammatory process. The appendix is normal. Pelvic Organs: There is mild fat stranding and thickening of the bladder wall which should be correlated to urinalysis and patient's symptoms to determine whether there may be cystitis. There is a fat-containing indirect right inguinal hernia. Vasculature: Atherosclerotic disease without abdominal aortic aneurysm. Bones: No significant abnormality. Other: None. IMPRESSION: Question cystitis as above. No hematoma is detected. ABX Reporting Has patient been on IV antibiotics over the past 48 hours?: Yes Assessment/Plan - Problem List (1) Syncope and collapse Impression: -The patient states that on Monday (March 04), he had an episode while in the kitchen in which he did not loose consciousness, but fell to the floor "like butter" and did not sustain any injuries -ON the morning of admission, (March 07) a similar episode happened, but this time he hit his head on the bathroom counter top as he was getting up to urinate around 4AM - He does not necessarily remember hitting his face or scrapping his left arm, but states that for both of these episodes, he was conscious - Since this was the second episode in a short time, his sister Sabi brought him into the ED - Syncope work up has revealed IHSS, (a type of hypertrophic cardiomyopathy) to be a contributing culprit - Also in the setting of acute illness, anemia, and possible GI blood loss with his reports of tarry stools - Abdominal CT today was negative for bleeding or tumors as a cause of the bleeding Plan: Await iron studies, update patient (2) IHSS (idiopathic hypertrophic subaortic stenosis) Impression: - Echo shows a sigmoid shaped septum with hypertrophy at the LV basal septum - LVH - No other abnormalities - This could explain his syncope and collapse in the setting of acute illness/dehydration - LF EF is 60-65% Plan: Permanently discontinue diuretics, and Norvasc from home list. Continue atenolol and if further agents to control B/P are needed, diltiazem would be ideal (3) Gastrointestinal bleeding, upper Impression: -Denies recent NSAID use - Admits to coffee use - Admits to a recent change in his diet with eating out more - Poor appetite for the past few days - No nausea, vomiting, or diarrhea - Admits to recent "black" stools that began maybe a week ago, no stools since being admitted - History of malaria in the 1960's - Denies a history of H. Pylori - Denies prior colonoscopy or EGDs - Status post EGD on 03/07/2019 in which no abnormalities or source of bleeding was found as per Dr. Sylvester - PPI IV changed to PO - Abdominal CT with oral and IV contrast was normal, only showing current cystitis Plan: Continue to monitor labs, replace blood for hemoglobin less than 7 (4) Anemia Impression: - Unknown prior H/H trends - Found to have normocytic anemia with an H/H of 7.5/22.2 on admission - Status post 1 units of PRBCs, which did not improve blood values; now 7.4/22.1, but this is most likely due to dilution from IV fluids - Orthostatic vital signs are normal, clarifying the suspicion of dilution - Reports of tarry, black stools for at least one week, no stools today - Denies hemorrhoids, rectal bleeding or hematemesis - Pale on exam with poor cap refill, some improvement today Plan: Routine labs in the AM, await iron studies, ferritin, and B12 in the AM Qualifiers: Anemia type: unspecified type Qualified Code(s): D64.9 - Anemia, unspecified (5) Diabetes mellitus type 2, controlled Impression: - Metformin at home, now on hold - Reports blood sugars at home have been running around 126, he checks his sugar daily - Reports a recent change in diet - Poor appetite for the past few days, now improved - Blood sugars today have been 144-237 - Hemoglobin A1C is 8.5% - His goal should be ~8% Plan: Hold Metformin, continue SSI, Lantus low dose 5 units nightly, continue regular diet Qualifiers: Diabetes mellitus detention insulin use: without detention use (6) Bulbous urethral stricture Impression: - Outside records requested from the patient's last urology visit at [facility] - On 01/21/2019 the patient underwent a Visual urethrotomy, with catheter placement - 2 Bulbar urethral strictures were found located close to the external urinary sphincter - 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, bladder 1-2+ trabeculation - No stones, tumors, or foreign bodies appreciated - CT scan today shows cystitis Plan: Follow patient's home straight cath schedule, bladder scans Q shift, treat current UTI using IV cipro (7) Essential hypertension Impression: - Home meds include: Norvasc, atenolol, spironolactone/hydrochlorothiazide, flomax, and finasteride - On hold in light of acute illness - Blood pressures light at 115/54 Plan: Continue to monitor, continue atenolol (8) Hyperlipidemia associated with type 2 diabetes mellitus Impression: - Patient is prescribed Pravastatin sodium at home, now on hold - NPO for upcoming EGD Plan: Check LFTs in the AM, resume upon discharge (9) Recurrent UTI (urinary tract infection) Impression: - Urine culture is pending - Recently diagnosed with UTI by PCP, unknown culture results - Recurrent with the complicating factor of his known urethral stricture - No mention of BPH - Cystitis on abdominal CT Plan: Indwelling phelan if bladder scans are greater than 500 mL, straight cath as patient's usual home routine (10) Nocturia more than twice per night Impression: - Patient admits to at least 2-3 times each night of getting up to urinate - This has been for the past several years - No known history of BPH - Takes flomax, finasteride at home for urethral stricture disease Plan: Hold meds for nephrotoxicity, follow patient's straight cath schedule (11) CKD (chronic kidney disease) stage 3, GFR 30-59 ml/min Impression: - Patient has a known history of this - Current GFR is down to 49 - Unknown baseline creatinine - Admission creatinine elevated at 1.4, now 1.2 Plan: Hold nephrotoxins, give IV fluids, monitor labs, resume meds upon discharge
[2019-03-08] MEDS ORDERED: IOVERSOL 320 50 ML VIAL ONE (13:16)
[2019-03-08] MEDS ORDERED: IOVERSOL 320 100 ML VIAL IVP ONE ×2 (13:16→14:23)
[2019-03-08] MEDS ORDERED: IOVERSOL 320 50 ML VIAL PO ONE (14:23)
--- NOTE | 2019-03-08 14:59 | CT Report ---
Reason: Evaluate for source of bleeding, constipation Procedure Date: 03/08/2019 Accession Number: [id number] / [id number] Procedure: CT - Abdomen/Pelvis W CPT Code: FULL RESULT: EXAM: CT ABDOMEN AND PELVIS EXAM DATE: 03/08/2019 02:22 PM. CLINICAL HISTORY: Evaluate for source of bleeding, constipation. COMPARISONS: None. TECHNIQUE: Routine helical CT imaging was performed through the abdomen and pelvis. IV contrast: . Enteric contrast: No. Reconstructions: Coronal and sagittal. In accordance with CT protocol optimization, one or more of the following dose reduction techniques were utilized for this exam: automated exposure control, adjustment of mA and/or KV based on patient size, or use of iterative reconstructive technique. FINDINGS: Lung Bases: Unremarkable. Liver: Normal. No masses. Gallbladder/Bile Ducts: Unremarkable. Spleen: Normal. Pancreas: Normal. Adrenal Glands: Normal. Kidneys: Right renal cyst. No hydronephrosis or calculi. Peritoneal Cavity/Bowel: Normal. No free fluid, free air or adenopathy. No masses or acute inflammatory process. The appendix is normal. Pelvic Organs: There is mild fat stranding and thickening of the bladder wall which should be correlated to urinalysis and patient's symptoms to determine whether there may be cystitis. There is a fat-containing indirect right inguinal hernia. Vasculature: Atherosclerotic disease without abdominal aortic aneurysm. Bones: No significant abnormality. Other: None. IMPRESSION: Question cystitis as above. No hematoma is detected. RADIA
[2019-03-08] MEDS ORDERED: POTASSIUM CHLORIDE 20 MEQ TABLET PO SCH (16:00)
[2019-03-08] MEDS: MAGNESIUM OXIDE 400 MG TABLET PO SCH (16:14)
[2019-03-08] MEDS: LIDOCAINE 2% URO-JET 5 ML SYRINGE UR PRN (18:43)
[2019-03-08] MEDS: INSULIN GLARGINE 300 UNIT/3 ML PEN SUBQ SCH (20:43)
[2019-03-09] MEDS: SODIUM CHLORIDE FLUSH 0.9% 10 ML SYRINGE IVP SCH ×2 (00:24→10:06)
[2019-03-09] MEDS: CIPROFLOXACIN 400 MG/200 ML 200 ML IV SCH (04:03)
[2019-03-09] MEDS: SODIUM CHLORIDE FLUSH 0.9% 10 ML SYRINGE IVP PRN ×2 (04:04→06:06)
[2019-03-09] MEDS: LIDOCAINE 2% URO-JET 5 ML SYRINGE UR PRN (05:41)
[2019-03-09 05:45] LABS: BASOPHILS % (AUTO) 0.4 %; EOSINOPHILS # (AUTO) 0.2 10^3/uL (0.0-0.7); EOSINOPHILS % (AUTO) 2.5 %; HGB - HEMOGLOBIN 7.4 g/dL (14.0-18.0); LYMPHOCYTES # (AUTO) 1.1 10^3/uL (1.5-3.5); LYMPHOCYTES % (AUTO) 13.5 %; MEAN CORPUSCULAR HEMOGLOBIN 29.2 pg (27.0-31.0); MEAN CORPUSCULAR HGB CONC 32.7 g/dL (32.0-36.0); MEAN CORPUSCULAR VOLUME 89.2 fL (80.0-94.0); MEAN PLATELET VOLUME 7.4 fL (7.4-11.4); MONOCYTES # (AUTO) 0.7 10^3/uL (0.0-1.0); MONOCYTES % (AUTO) 9.1 %; NEUTROPHILS # (AUTO) 6.1 10^3/uL (1.5-6.6); NEUTROPHILS % (AUTO) 74.5 %; PLT - PLATELET COUNT 317 10^3/uL (130-450); RED BLOOD COUNT 2.54 10^6/uL (4.70-6.10); WHITE BLOOD COUNT 8.2 x10^3/uL (4.8-10.8)
[2019-03-09] MEDS: PANTOPRAZOLE 40 MG VIAL IVP SCH (06:06)
[2019-03-09 06:17] LABS: ALBUMIN 2.7 g/dL (3.2-5.5); BILIRUBIN,TOTAL 0.4 mg/dL (0.2-1.0); CALCIUM 8.2 mg/dL (8.5-10.3); CREATININE 1.1 mg/dL (0.6-1.2); MAGNESIUM 1.7 mg/dL (1.7-2.8); PHOSPHORUS 2.6 mg/dL (2.5-4.6); TOTAL PROTEIN 5.5 g/dL (6.7-8.2)
[2019-03-09 06:28] LABS: FERRITIN 20.6 ng/mL (23.9-336.2)
[2019-03-09 06:33] LABS: FOLATE 5.78 ng/mL (5.90 - >24.8)
[2019-03-09] MEDS ORDERED: FERROUS GLUCONATE 324 MG TABLET PO SCH (08:00)
[2019-03-09] MEDS: POLYETHYLENE GLYCOL 3350 17 GM PACKET PO SCH (09:03)
[2019-03-09] MEDS: ATENOLOL 25 MG TABLET PO SCH (09:03)
[2019-03-09] MEDS: MAGNESIUM OXIDE 400 MG TABLET PO SCH (09:03)
[2019-03-09] MEDS: INSULIN ASPART 300 UNIT/3 ML PEN SUBQ SCH (09:04)
[2019-03-09 11:53] VITALS: BP 107/54
--- NOTE | 2019-03-09 11:59 | Discharge Plan ---
Discharge Plan Disposition: Home, Self Care Condition: Good Prescriptions: Ferrous Gluconate 240 mg PO BID #60 tablet Magnesium Oxide [Mag Ox] 400 mg PO BIDWM #60 tablet Methenamine Hippurate [Hiprex] 1 gm PO BID #60 tablet Diet: Diabetic Activity Restrictions: Activity as Tolerated Shower Restrictions: No Driving Restrictions: No Weight Bearing: Full Weight Additional Instructions or Follow Up instructions: Syncope and collapse: You were admitted after you had 2 episodes of falling with near loss of consciousness. The first suspicion was that since your blood counts were low, you may be actively bleeding. Iron deficiency anemia: You were given one unit of blood, which did not change your blood values by much, but it improved your overall condition. Iron studies were done showing that your body does not have enough iron to create more blood. You have been started on an iron supplement that will continue at home. IHSS (idiopathic hypertrophic sub-aortic stenosis: This was found on an echocardiogram as part of your syncope work up. You have likely lived with this for many years. Your left ventricle is very thick with an extra appendage attached which sometimes blocks the flow of blood as it gets pumped to your body and your brain. This condition is the most likely reason for your passing out type symptoms which led to this admission. You should not be on a diuretic since you need plenty of volume within your vessels to get oxygen to your brain. You should not be on Norvasc (amlodipine) as this reduces downstream pressure, and can cause a worsening of your thickened left ventricle. I have stopped both of these home medications. The most ideal way to treat your heart condition is with rate control medications, so keep taking the atenolol to allow enough time between each heart beat for efficiency. If your blood pressure becomes an issue in the future, the next agent that could be added is called Diltiazem or Cardizem, and this will be passed onto your PCP. Urethral stricture: This may make you more prone to recurrent infections. Please continue the Cipro at home to finish all of them. You have been given IV Cipro while here. GI bleed: This was first a suspicion since you reported black stools. You underwent an EGD (upper endoscope) which showed no active bleeding ulcers which is the most common reasons that patients bleed. The second most common is caused by cancer or a tumor of the bowels. Please plan on getting a colonoscopy that should be scheduled with your primary care provider. Imaging of your abdomen with contrast showed no evidence of bowel inflammation, and only cystitis (bladder infection). Conclusion: The most likely cause of these events was due to your acute infection of your bladder leading to dehydration, weakness, thereby causing your falls. By stopping the diuretic and Norvasc, I believe you will be safe at home and will be at a much lower risk of falling from now on. You may benefit from a daily prophylaxis antibiotic that is sometimes prescribed to prevent bladder infections since you continue to require straight catheters. It was very nice taking care of you and good luck! Please see your PCP within one week. No Smoking: If you smoke, Please STOP! Call for help. Follow-up with: Mary Ly MD [Primary Care Provider] -
--- NOTE | 2019-03-09 12:03 | DISCHARGE SUMMARY ---
Discharge Summary Admit Date: 03/07/19 Discharge Date: 03/09/19 Discharging Provider: RICK Eddy Primary Care Provider: Mary Ly Code Status: Attempt Resuscitation Condition at Discharge: Good Discharge Disposition: 01 Home, Self Care - DIAGNOSES Admission Diagnoses: Syncope and collapse (R55) Gastrointestinal hemorrhage, unspecified (K92.2) Anemia, unspecified (D64.9) Type 2 diabetes mellitus without complications (E11.9) Dizziness and giddiness (R42) Unspecified bulbous urethral stricture, male (N35.912) Essential (primary) hypertension (I10) Type 2 diabetes mellitus with other specified complication (E11.69) Urinary tract infection, site not specified (N39.0) Nocturia (R35.1) Chronic kidney disease, stage 3 (moderate) (N18.3) Discharge Diagnoses with Status of Each Condition: Syncope and collapse (R55) resolved, stable. 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 Hiprex to be started after Cipro for daily prophylaxis in the setting of chronic self caths Nocturia more than twice per night (R35.1) chronic, stable Stage 3 chronic kidney disease (N18.3) chronic, stable IHSS (idiopathic hypertrophic subaortic stenosis) (I42.1) New finding on this hospital stay and was likely a contributing factor in his recurrent syncope leading to this admission. Diuretic and norvasc not preferred in this condition. Primary treatment is with rate control to increase cardiac output efficiency Hypomagnesemia (E83.42) stable, continue magnesium at home Facial trauma (S09.93XA) new on this admission, healing well Fall (W19.XXXA) stable, continue to treat acute illness - HPI History of Present Illness: Rishabh Moon is a 79-year old male with a past medical history of malaria while in [place] in the 1959', bulbar urethral stricture disease, recurrent UTI, urinary retention, nocturia, status post urethrotomy, long standing tobacco dependence- quit ~5 years ago, non-insulin dependent diabetes mellitus type 2, essential hypertension, hyperlipidemia, and left inguinal hernia repair in the year 1999. The patient states that on Monday (March 04), he had an episode while in the kitchen in which he did not loose consciousness, but fell to the floor "like butter" and did not sustain any injuries. This morning, (March 07) a similar episode happened, but this time he hit his head on the bathroom counter top as he was getting up to urinate around 4AM. He does not necessarily remember hitting his face or scrapping his left arm, but states that for both of these episodes, he was conscious. Since this was the second episode in a short time, his sister Sabi brought him into the ED. Once arriving in the ED the patient admits to recent black stools which started about one week ago, poor appetite that seems to come and go since Monday, increased dizziness, lethargy and some shortness of breath with ambulation. He also states that he has neck pain since the fall this morning. All imaging including cervical spine, head, and a chest x-ray shows no fractures or evidence of bleeding. He has a laceration to his right nose, left elbow and left fore hand in which dressings and steri-strips have been applied. Labs show a normal WBC count of 10.3, hgb 7.5, hct 22.2, MCV 89.3, plt count 358, neut # 8.2, sodium 137, potassium 3.5, chloride 98, anion gap 15, BUN 43, creatinine 1.4, GFR 49, glucose 260, calcium 9.0, and a normal troponin of 0.04. Vital signs were normal with a temp of 36.0 C, heart rate of 57, respiratory rate of 18, blood pressure of 137/62 and oxygen saturation of 100% on room air. On my exam, he appears pale, with poor capillary refill in all extremity nail beds, can speak in full sentences, and is not dizzy while lying in bed. He states that he saw his PCP a few days ago, who started him on Cipro, but since having to take his sister, Sabi up to [place], he has not started those pills yet. He states that he has been given home cath kits since he requires straight cath daily. A general surgery consult has been made, and Dr. Sylvester will plan to see the patient for further investigation of this suspected upper GI bleeding with the patient's reports of black stools and his apparent loss of blood. - HOSPITAL COURSE Hospital Course: (1) Syncope and collapse -The patient states that on Monday (March 04), he had an episode while in the kitchen in which he did not loose consciousness, but fell to the floor "like butter" and did not sustain any injuries -ON the morning of admission, (March 07) a similar episode happened, but this time he hit his head on the bathroom counter top as he was getting up to urinate around 4AM - He does not necessarily remember hitting his face or scrapping his left arm, but states that for both of these episodes, he was conscious - Since this was the second episode in a short time, his sister Sabi brought him into the ED - Syncope work up has revealed IHSS, (a type of hypertrophic cardiomyopathy) to be a contributing culprit - Also in the setting of acute illness, anemia, and possible GI blood loss with his reports of tarry stools - Abdominal CT was negative for bleeding or tumors as a cause of the bleeding (2) IHSS (idiopathic hypertrophic subaortic stenosis) - Echo shows a sigmoid shaped septum with hypertrophy at the LV basal septum - LVH - No other abnormalities - This could explain his syncope and collapse in the setting of acute illness/dehydration - LF EF is 60-65% - Permanently discontinue diuretics, and Norvasc from home list - Continue atenolol and if further agents to control B/P are needed, diltiazem would be ideal (3) Gastrointestinal bleeding, upper -Denies recent NSAID use - Admits to coffee use - Admits to a recent change in his diet with eating out more - Poor appetite for the past few days - No nausea, vomiting, or diarrhea - Admits to recent "black" stools that began maybe a week ago, no stools since being admitted - History of malaria in the 1960's - Denies a history of H. Pylori - Denies prior colonoscopy or EGDs - Status post EGD on 03/07/2019 in which no abnormalities or source of bleeding was found as per Dr. Sylvester - PPI IV changed to PO - Abdominal CT with oral and IV contrast was normal, only showing current cystitis (4) Anemia - Unknown prior H/H trends - Found to have normocytic anemia with an H/H of 7.5/22.2 on admission - Status post 1 units of PRBCs, which did not improve blood values; now 7.4/22.1, but this is most likely due to dilution from IV fluids - Orthostatic vital signs are normal, clarifying the suspicion of dilution - Reports of tarry, black stools for at least one week - Denies hemorrhoids, rectal bleeding or hematemesis - Pale on exam with poor cap refill, some improvement after blood transfusion - Discharged with iron supplement (5) Diabetes mellitus type 2, controlled - Metformin at home, now on hold - Reports blood sugars at home have been running around 126, he checks his sugar daily - Reports a recent change in diet - Poor appetite for the past few days, now improved - Blood sugars today have been 144-237 - Hemoglobin A1C is 8.5% - His goal should be ~8% - No changes to home meds (6) Bulbous urethral stricture - Outside records requested from the patient's last urology visit at 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, bladder 1-2+ trabeculation - No stones, tumors, or foreign bodies appreciated - CT scan shows cystitis - Continue Cipro at home, then Hiprex daily to be used as a prophylaxis (7) Essential hypertension - Home meds include: Norvasc, atenolol, spironolactone/hydrochlorothiazide, joycelyn max, and finasteride - Diuretic and Norvasc permanently discontinued, recommend adding diltiazem if needed in the future based on echo - Blood pressures light at 115/54 (8) Hyperlipidemia associated with type 2 diabetes mellitus - Patient is prescribed Pravastatin sodium at home, now on hold (9) Recurrent UTI (urinary tract infection) - Urine culture without a pathogen - Recently diagnosed with UTI by PCP, unknown culture results - Recurrent with the complicating factor of his known urethral stricture - No mention of BPH - Cystitis on abdominal CT - Finish Cipro at home, then start Hiprex daily for prophylaxis (10) Nocturia more than twice per night - Patient admits to at least 2-3 times each night of getting up to urinate - This has been for the past several years - No known history of BPH - Takes flomax, finasteride at home for urethral stricture disease (11) CKD (chronic kidney disease) stage 3, GFR 30-59 ml/min - Patient has a known history of this - Current GFR is down to 49 - Unknown baseline creatinine - Admission creatinine elevated at 1.4, now 1.2 (12) Disposition - Patient medically stable and discharged home with his sister. - ALLERGIES Allergies/Adverse Reactions: Allergies Allergy/AdvReac Type Severity Reaction Status Date / Time Penicillins Allergy Unknown Verified 03/07/19 05:35 - MEDICATIONS Home Medications: Ambulatory Orders Medication Instructions Recorded Confirmed Atenolol 25 mg PO BID 03/07/19 03/07/19 Cholecalciferol (Vitamin D3) 2,000 unit PO DAILY 03/07/19 03/07/19 [Vitamin D3] Ciprofloxacin HCl 250 mg PO [id number] 03/07/19 03/07/19 Finasteride 5 mg PO DAILY 03/07/19 03/07/19 Metformin HCl [Metformin HCl ER] 1,000 mg PO Q12H 03/07/19 03/07/19 Pravastatin Sodium 10 mg PO DAILY 03/07/19 03/07/19 Tamsulosin HCl [Flomax] 0.4 mg PO QPM 03/07/19 03/07/19 Ferrous Gluconate 240 mg PO BID #60 tablet 03/09/19 Magnesium Oxide [Mag Ox] 400 mg PO BIDWM #60 tablet 03/09/19 Methenamine Hippurate [Hiprex] 1 gm PO BID #60 tablet 03/09/19 - PHYSICAL EXAM AT DISCHARGE General Appearance: positive: No acute distress, Alert Eyes Bilateral: positive: PERRL ENT: positive: ENT inspection nml, Pharynx nml, No signs of dehydration Neck: positive: Thyroid nml, No JVD, Trachea midline Respiratory: positive: Chest non-tender, No respiratory distress, Breath sounds nml Cardiovascular: positive: Regular rate & rhythm, No gallop, Systolic murmur Peripheral Pulses: positive: 2+ Abdomen: positive: Non-tender, Nml bowel sounds, Other (rounded, soft) Back: positive: Nml inspection Skin: positive: No rash, Warm, Dry Extremities: positive: Non-tender, Full ROM, Nml appearance, Pedal edema Neurologic/Psychiatric: positive: Oriented x3, CN's nml (2-12), Motor nml, Sensation nml, Weakness, Depressed mood/affect Reflexes: Bicep (R): 3+, Bicep (L): 3+ - LABS Result Diagrams: 03/09/19 05:22 03/09/19 05:22 - DIAGNOSTIC IMAGING Diagnostic Imaging Results: Final report reviewed Diagnostic Imaging Results Comments: EXAM: CT ABDOMEN AND PELVIS EXAM DATE: 03/08/2019 02:22 PM IMPRESSION: Question cystitis as above. No hematoma is detected. EXAM: CT HEAD EXAM DATE: 03/07/2019 06:08 AM IMPRESSION: Generalized age-related cortical atrophic changes without evidence of acute intracranial abnormality. EXAM: CT CERVICAL SPINE WITHOUT CONTRAST DATE: 03/07/2019 06:08 AM IMPRESSION: No acute cervical spine fracture. EXAM: CHEST RADIOGRAPHY EXAM DATE: 03/07/2019 06:42 AM IMPRESSION: No acute cardiopulmonary abnormality demonstrated. A few scattered calcified right lung granulomata. ECHOCARDIOGRAM: Final 03/07/2019: Sigmoid shaped septum with focal hypertrophy of the basal septum. The remaining wall thickness is normal. IHSS. Overall LV systolic function is normal with an EF of 60-65%. Grade I diastolic dysfunction, no regional wall motion abnormalities. - FOLLOW UP Follow Up: Follow up with blood pressure control. Blood pressures were light while in the hospital. Patient was taken off 2 antihypertensive agents. Add diltiazem if further blood pressure control is needed. Daily UTI prophylaxis was prescribed to be started after oral Cipro per patient request. Patient also requested that he would be allowed to change PCPs as it is getting more difficult traveling off [place] for his check ups. - TIME SPENT Time Spent in Discharge (Minutes): 50
--- NOTE | 2019-03-11 16:44 | CONSULTATION NOTE ---
Referring Provider Name of Referring Provider:: RICK Eddy Consult Date: 03/07/19 Chief Complaint - Chief Complaint Chief Complaint: Melena and anemia (presumed upper gastrointestinal bleed) History of Present Illness - Admitted From Admitted From:: [facility]'s emergency department - History Obtained From Records Reviewed: Yes History obtained from: Cindy Sexton and patient Exam Limitations: None - History of Present Illness HPI Comment/Other: The patient is a 79-year-old male who I was called in consultation by Cindy Sexton in the middle of a day in the endoscopy suite for a semiurgent EGD to evaluate the patient's melena and anemia. The patient had recently had several falls the most recent of which caused a nose laceration. The patient states that he did not lose consciousness. He recently had a urologic procedure done in outside hospital and we do not have any labs. It is unclear was to whether or not he was anemic at that time. Otherwise, he denies a long-standing history of hematochezia, melena or hematemesis. He denies unexpected or unwarranted weight loss. He is not anticoagulated. He does not have any history of liver disease. Again, much of this history was obtained on-the-fly in between endoscopic cases. 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 : reports: Chronic bladder infection, Renal insuffiency, Nocturia, Frequency, Other (bulbar urethral strictures) HEENT: reports: Chronic vision loss, Chronic sinusitis Psych: reports: None Musculoskeletal: reports: Fatigue Derm: reports: None MRSA Hx?: No Other Past Medical History: Malaria in [place] - Past Surgical History General: reports: Other (left inguinal hernia repair in the year 1999) HEENT: reports: Cataracts Other past surgical history: Cystoscopy, vision internal urethrotomy on 01/21/2019 at [facility] urology - Family & Social History Family History: Mother: , Father: Living arrangement: At home Living Situation: With family (Lives with his sister, Sbai) Social History Notes: The patient was in the [employer] from [id number]. He l ived in [place] for much of his life and worked for a [employer]. He has been retired for at least 10 years and has been living with his sister in [place] for the past 6 years. He continues to be independent with his ADLs, is active each day, and drives a car. He admits to long standing tobacco dependence from age [age] years in which he smoked 2 PPD. He denies alcohol or illicit drug use. He wishes to be a FULL code. - Substance History Use: Uses substance without health or social issues: NONE Abuse: Recurrent use of substance despite neg consequences: NONE Dependence: Experiences withdrawal or developed tolerances: NONE - POLST Patient has POLST: No POLST Status: Full Code Meds/Allgy - Home Medications Home Medications: Ambulatory Orders Medication Instructions Recorded Confirmed Atenolol 25 mg PO BID 03/07/19 03/07/19 Cholecalciferol (Vitamin D3) 2,000 unit PO DAILY 03/07/19 03/07/19 [Vitamin D3] Ciprofloxacin HCl 250 mg PO [id number] 03/07/19 03/07/19 Finasteride 5 mg PO DAILY 03/07/19 03/07/19 Metformin HCl [Metformin HCl ER] 1,000 mg PO Q12H 03/07/19 03/07/19 Pravastatin Sodium 10 mg PO DAILY 03/07/19 03/07/19 Tamsulosin HCl [Flomax] 0.4 mg PO QPM 03/07/19 03/07/19 Ferrous Gluconate 240 mg PO BID #60 tablet 03/09/19 Magnesium Oxide [Mag Ox] 400 mg PO BIDWM #60 tablet 03/09/19 Methenamine Hippurate [Hiprex] 1 gm PO BID #60 tablet 03/09/19 - Allergies Allergies/Adverse Reactions: Allergies Allergy/AdvReac Type Severity Reaction Status Date / Time Penicillins Allergy Unknown Verified 03/07/19 05:35 Review of Systems - Constitutional Constitutional: reports: Fatigue. denies: Fever, Chills - Eyes Eyes: denies: Pain - Ears, Nose & Throat Ears, Nose & Throat: denies: Ear pain - Cardiovascular Cariovascular: reports: Palpitations. denies: Irregular heart rate, Chest pain - Respiratory Respiratory: denies: Cough - Gastrointestinal Gastrointestinal: reports: Black stools. denies: Abdominal pain, Abdominal distention, Nausea, Vomiting, Asa blood emesis - Neurological Neurological: reports: General weakness, Dizziness. denies: Focal weakness Exam - Vital Signs Reviewed Vital Signs: Yes - Physical Exam General Appearance: positive: No acute distress Eyes Bilateral: positive: No lid inflammation, Conjunctivae nml, No scleral icterus ENT: positive: Dry mucous membranes Neck: positive: Trachea midline Respiratory: positive: Chest non-tender, No respiratory distress, Breath sounds nml Cardiovascular: positive: Regular rate & rhythm, Tachycardia Abdomen: positive: Nml bowel sounds, No distention. negative: Tenderness Skin: positive: Pallor Neurologic/Psychiatric: positive: Oriented x3, Motor nml, Sensation nml, Mood/affect nml Conclusion/Plan - Diagnosis Diagnosis: History of melena and anemia - Plan Plan: Esophagogastroduodenoscopy with possible biopsies and/or polypectomies. Indications, procedure, alternatives (such as barium studies and even no procedure at all) and risks including but not limited to perforation requiring operative repair, bleeding with its risks, and were fully explained to him. I explained that his posterior oropharynx would also be anesthetized for the procedure. Review of his history does not reveal any significant systemic disease that would contraindicate use of conscious sedation or MAC anesthesia. All questions were fully answered. Verbal and written consent was obtained. The patient in preparation for his esophagogastroduodenoscopy has been n.p.o. (although he recently had some red Jell-O this should not postpone the EGD). 30 minutes of [id number] time spent with the patient the majority of which was spent in discussion, coordination of their care, and completion of the requisite paperwork Dragon disclaimer: This document was created in part using voice recognition technology. Because of the inherent limitations of the system ([employer] user manual states that the licensee understands that speech recognition is a statistical process and that recognition errors are inherent in the process), occasional same sounding word substitutions and grammatical errors do occur and persist despite proofreading. Please read this document for context. - Lab Results Lab results reviewed: Yes Fish Bones: 03/09/19 05:22 03/09/19 05:22
== END 2019-03-09 13:16 | disposition home or self-care (01) | DRG 315 ==
LOC: ED 05:23 → MS2 07:37
PROVIDERS: ADMIT Nurse Practitioner; ATTEND Nurse Practitioner
PROC: 0DJ08ZZ Inspection of Upper Intestinal Tract, Via Natural or Artificial Opening Endoscopic (ICD-10-PCS; principal; 2019-03-07 14:30)
DX: D64.9 Anemia, unspecified (principal); I42.1 Obstructive hypertrophic cardiomyopathy; S01.111A Laceration without foreign body of right eyelid and periocular area, initial encounter; K92.2 Gastrointestinal hemorrhage, unspecified; R55 Syncope and collapse; N30.90 Cystitis, unspecified without hematuria; I10 Essential (primary) hypertension; E78.00 Pure hypercholesterolemia, unspecified; E11.9 Type 2 diabetes mellitus without complications; D50.0 Iron deficiency anemia secondary to blood loss (chronic); N35.812 Other bulbous urethral stricture, male; I12.9 Hypertensive chronic kidney disease with stage 1 through stage 4 chronic kidney disease, or unspecified chronic kidney disease; E11.22 Type 2 diabetes mellitus with diabetic chronic kidney disease; N18.3 Chronic kidney disease, stage 3 (moderate); E86.0 Dehydration; E78.5 Hyperlipidemia, unspecified; R35.1 Nocturia; R35.0 Frequency of micturition; R33.9 Retention of urine, unspecified; J43.9 Emphysema, unspecified; E83.42 Hypomagnesemia; S01.21XA Laceration without foreign body of nose, initial encounter; S51.012A Laceration without foreign body of left elbow, initial encounter; S01.81XA Laceration without foreign body of other part of head, initial encounter; S61.412A Laceration without foreign body of left hand, initial encounter; S40.022A Contusion of left upper arm, initial encounter; M54.2 Cervicalgia; S40.021A Contusion of right upper arm, initial encounter; W18.30XA Fall on same level, unspecified, initial encounter; Z91.81 History of falling; Y93.E8 Activity, other personal hygiene; Y92.002 Bathroom of unspecified non-institutional (private) residence as the place of occurrence of the external cause; H54.7 Unspecified visual loss; J32.8 Other chronic sinusitis; Z79.84 Long term (current) use of oral hypoglycemic drugs; Z87.440 Personal history of urinary (tract) infections; Z86.13 Personal history of malaria; Z87.891 Personal history of nicotine dependence
CPT/HCPCS: 36415; 70450; 71045; 72125; 74177; 80048; 80053; 81001; 82607; 82728; 82746; 83036; 83540; 83735; 83880; 84100; 84443; 84466; 84484; 85025; 86850; 86900; 86901; 86920; 87086; 93005; 93306; 99284; A9270; J1815; P9016; Q9967; 81003

== ENCOUNTER 2019-03-12 13:47 | Inpatient (IN) | payer MEDICARE, OTHER ==
--- NOTE | 2019-03-12 14:14 | ED Physician Documentation ---
PD HPI GI BLEED - Stated complaint Stated Complaint: DIZZY/WEAKNESS - Chief complaint Chief Complaint: General - History obtained from History obtained from: Patient - History of Present Illness Timing - onset: Today (The patient had feeling of general weakness and lightheadedness and dyspnea onset this morning. He noted himself to have dark stool output that was soft. He had been recently seen for anemia and had admission with transfusion and upper endoscopy which did not show a source of bleeding. He had a CT scan of the abdomen which did not show any acute abnormality. He was discharged 3 days ago after 2 days stay. His hemogram remained stable though it actually did not increase with the transfusion. Discharge hemoglobin was 7.4. He had had some dark stools in the recent past but none at the time of the recent admission. He did have dark stools today.) Timing - details: Abrupt onset, Still present, Waxing and waning Associated symptoms: Black/tarry stool. No: Vomiting, BRBPR, Maroon stool, Constipation Contributing factors: No: Sick contact Improved by: No: Laying still Worsened by: No: Moving Similar symptoms before: No diagnosis Recently seen: Emergency Dept, Admitted (5 days ago and dsicharged 3 days ago) Review of Systems Constitutional: reports: Fatigue. denies: Fever, Chills, Myalgias Nose: denies: Rhinorrhea / runny nose, Congestion Throat: denies: Sore throat Cardiac: denies: Chest pain / pressure, Palpitations Respiratory: reports: Dyspnea. denies: Cough, Wheezing GI: reports: Bloody / black stool (dark stools today). denies: Abdominal Pain, Vomiting : denies: Dysuria, Frequency Neurologic: reports: Generalized weakness. denies: Near syncope (but feeling weak and lightheaded), Syncope Endocrine: denies: Weight loss Immunocompromised: denies: Immunocompromised PD PAST MEDICAL HISTORY - Past Medical History Cardiovascular: Hypertension, High cholesterol Respiratory: COPD, Emphysema Neuro: Fainting Endocrine/Autoimmune: Type 2 diabetes GI: None CRITICAL CARE NURSE SPECIALIST: None : Chronic bladder infection, Renal insuffiency, Nocturia, Frequency, Other (bulbar urethral strictures) HEENT: Chronic vision loss, Chronic sinusitis Psych: None Musculoskeletal: Fatigue Derm: None - Past Surgical History Past Surgical History: Yes General: Other (left inguinal hernia repair in the year 1999) HEENT: Cataracts - Present Medications Home Medications: Ambulatory Orders Medication Instructions Recorded Confirmed Atenolol 25 mg PO BID 03/07/19 03/07/19 Cholecalciferol (Vitamin D3) 2,000 unit PO DAILY 03/07/19 03/07/19 [Vitamin D3] Ciprofloxacin HCl 250 mg PO [id number] 03/07/19 03/07/19 Finasteride 5 mg PO DAILY 03/07/19 03/07/19 Metformin HCl [Metformin HCl ER] 1,000 mg PO Q12H 03/07/19 03/07/19 Pravastatin Sodium 10 mg PO DAILY 03/07/19 03/07/19 Tamsulosin HCl [Flomax] 0.4 mg PO QPM 03/07/19 03/07/19 Ferrous Gluconate 240 mg PO BID #60 tablet 03/09/19 Magnesium Oxide [Mag Ox] 400 mg PO BIDWM #60 tablet 03/09/19 Methenamine Hippurate [Hiprex] 1 gm PO BID #60 tablet 03/09/19 - Allergies Allergies/Adverse Reactions: Allergies Allergy/AdvReac Type Severity Reaction Status Date / Time Penicillins Allergy Unknown Verified 03/12/19 14:06 - Social History Does the pt smoke?: No Smoking Status: Former smoker Does the pt drink ETOH?: No Does the pt have substance abuse?: No - Immunizations Immunizations are current?: Yes - POLST Patient has POLST: No POLST Status: Full Code PD ED PE NORMAL - Vitals Vital signs reviewed: Yes - General General: Alert and oriented X 3, No acute distress, Well developed/nourished - HEENT HEENT: Moist mucous membranes, Pharynx benign, Other (pale color) - Neck Neck: Supple, no meningeal sign, No adenopathy, No JVD - Cardiac Cardiac: RRR (mild tachycardia), No murmur - Respiratory Respiratory: Clear bilaterally - Abdomen Abdomen: Normal bowel sounds, Soft, Non tender, Non distended, No organomegaly - Male Male : Deferred - Rectal Rectal: Other (Rectal exam showed dark black stool which is malodorous consistent with melena and tests markedly guaiac positive.) - Back Back: No CVA TTP - Derm Derm: No: Normal color (pale) - Extremities Extremities: No tenderness to palpate, No edema, No calf tenderness / cord - Neuro Neuro: Alert and oriented X 3, No motor deficit, Normal speech Results - Vitals Vitals: Vital Signs - 24 hr 03/12/19 03/12/19 03/12/19 13:56 14:06 14:36 Temperature 36.7 C Heart Rate 104 H 76 84 Respiratory 20 16 16 Rate Blood Pressure 133/101 H 109/43 L 115/41 L O2 Saturation 97 100 100 03/12/19 03/12/19 03/12/19 15:06 15:30 16:00 Temperature Heart Rate 84 90 87 Respiratory 15 18 18 Rate Blood Pressure 110/51 L 106/47 L 126/44 L O2 Saturation 95 100 100 Oxygen O2 Source Room air - Labs Labs: Laboratory Tests 03/12/19 03/12/19 03/12/19 14:25 14:25 14:25 WBC 13.7 H RBC 2.06 L Hgb 6.1 L* Hct 18.7 L* MCV 90.9 MCH 29.4 MCHC 32.3 RDW 16.7 H Plt Count 411 MPV 7.7 Neut # (Auto) 11.5 H Lymph # (Auto) 1.1 L Cameron # (Auto) 0.9 Eos # (Auto) 0.2 Baso # (Auto) 0.1 Absolute Nucleated RBC 0.01 Nucleated RBC % 0.0 Manual Slide Review Indicated WBC Morphology NORMAL APPEARANCE Platelet Estimate NORMAL (130-450,000) Platelet Morphology NORMAL APPEARANCE RBC Morph Micro Appear 3+ POLYCHROMASIA Sodium 138 Potassium 4.9 Chloride 103 Carbon Dioxide 20 L Anion Gap 15.0 H BUN 30 H Creatinine 1.5 H Estimated GFR (MDRD) 45 L Glucose 258 H Calcium 8.6 Magnesium 1.8 Total Bilirubin 0.4 AST 19 ALT 10 Alkaline Phosphatase 63 Troponin I < 0.04 B-Natriuretic Peptide Total Protein 6.0 L Albumin 2.8 L Globulin 3.2 Albumin/Globulin Ratio 0.9 L Lipase 31 Blood Type Antibody Screen Crossmatch IS Only 03/12/19 03/12/19 03/12/19 14:25 15:07 15:07 WBC RBC Hgb Hct MCV MCH MCHC RDW Plt Count MPV Neut # (Auto) Lymph # (Auto) Cameron # (Auto) Eos # (Auto) Baso # (Auto) Absolute Nucleated RBC Nucleated RBC % Manual Slide Review WBC Morphology Platelet Estimate Platelet Morphology RBC Morph Micro Appear Sodium Potassium Chloride Carbon Dioxide Anion Gap BUN Creatinine Estimated GFR (MDRD) Glucose Calcium Magnesium Total Bilirubin AST ALT Alkaline Phosphatase Troponin I B-Natriuretic Peptide 244 H Total Protein Albumin Globulin Albumin/Globulin Ratio Lipase Blood Type O POSITIVE Cancelled Antibody Screen NEGATIVE Cancelled Crossmatch IS Only See Detail PD MEDICAL DECISION MAKING - ED course Complexity details: reviewed old records, reviewed results, re-evaluated patient, d/w therapeutic consultant (Dr. Carias was in the OR but we did get word to him through the OR nurse if he would see the patient here in the hospital of the ER with the background information that he had been recently admission admitted for anemia with upper endoscopy and now returns with melena and decreased hemogl obin again. Dr. Carias relayed that he would see the patient. I then talked with the hospitalist to provide admission.) Departure - Departure Disposition: 66 [facility] DC/Xfer Clinical Impression: General weakness Anemia Qualifiers: Anemia type: other cause Other causes of anemia: acute posthemorrhagic Qualified Code(s): D62 - Acute posthemorrhagic anemia GI bleeding Qualifiers: GI bleed type/associated pathology: unspecified gastrointestinal hemorrhage type Qualified Code(s): K92.2 - Gastrointestinal hemorrhage, unspecified Condition: Stable Record reviewed to determine appropriate education?: Yes
[2019-03-12] MEDS ORDERED: SODIUM CHLORIDE 0.9% 1,000 ML IV ONE (14:48)
[2019-03-12 14:59] LABS: BASOPHILS # (AUTO) 0.1 10^3/uL (0.0-0.1); BASOPHILS % (AUTO) 0.4 %; EOSINOPHILS # (AUTO) 0.2 10^3/uL (0.0-0.7); EOSINOPHILS % (AUTO) 1.1 %; LYMPHOCYTES # (AUTO) 1.1 10^3/uL (1.5-3.5); LYMPHOCYTES % (AUTO) 8.1 %; MEAN CORPUSCULAR HEMOGLOBIN 29.4 pg (27.0-31.0); MEAN CORPUSCULAR HGB CONC 32.3 g/dL (32.0-36.0); MEAN CORPUSCULAR VOLUME 90.9 fL (80.0-94.0); MEAN PLATELET VOLUME 7.7 fL (7.4-11.4); MONOCYTES # (AUTO) 0.9 10^3/uL (0.0-1.0); MONOCYTES % (AUTO) 6.4 %; NEUTROPHILS # (AUTO) 11.5 10^3/uL (1.5-6.6); PLT - PLATELET COUNT 411 10^3/uL (130-450); RED BLOOD COUNT 2.06 10^6/uL (4.70-6.10); RED CELL DISTRIBUTION WIDTH 16.7 % (12.0-15.0); WHITE BLOOD COUNT 13.7 x10^3/uL (4.8-10.8)
[2019-03-12 15:05] LABS: HGB - HEMOGLOBIN 6.1 g/dL (14.0-18.0)
[2019-03-12 15:09] LABS: ALBUMIN 2.8 g/dL (3.2-5.5); ALBUMIN/GLOBULIN RATIO 0.9 (1.0-2.2); BILIRUBIN,TOTAL 0.4 mg/dL (0.2-1.0); CALCIUM 8.6 mg/dL (8.5-10.3); CREATININE 1.5 mg/dL (0.6-1.2); MAGNESIUM 1.8 mg/dL (1.7-2.8)
--- NOTE | 2019-03-12 15:18 | XRAY Report ---
Reason: chest pain Procedure Date: 03/12/2019 Accession Number: [id number] / [id number] Procedure: XR - Chest 1 View X-Ray CPT Code: 42943 FULL RESULT: EXAM: CHEST RADIOGRAPHY EXAM DATE: 03/12/2019 03:03 PM. CLINICAL HISTORY: Chest pain. COMPARISON: CHEST 1 VIEW 03/07/2019 6:29 AM. TECHNIQUE: 1 view. FINDINGS: Lungs/Pleura: No focal opacities evident. No pleural effusion. No pneumothorax. Mediastinum: Within exam limitations, the cardiomediastinal contour is normal. Other: None. IMPRESSION: Normal single view chest. RADIA
[2019-03-12 15:37] LABS: PLATELET ESTIMATE, MANUAL NORMAL (130-450,000) (NORMAL); PLATELET MORPHOLOGY NORMAL APPEARANCE (NORMAL)
[2019-03-12] MEDS ORDERED: ACETAMINOPHEN 325 MG TABLET PO PRN (16:35)
[2019-03-12] MEDS ORDERED: ZOLPIDEM 5 MG TABLET PO PRN (16:35)
[2019-03-12] MEDS ORDERED: ONDANSETRON 4 MG/2 ML VIAL IVP PRN (16:35)
--- NOTE | 2019-03-12 17:13 | HISTORY & PHYSICAL EXAMINATION ---
Chief Complaint - Chief Complaint Chief Complaint: GI bleed History of Present Illness - Admitted From Admitted From:: ER - History Obtained From History obtained from: pt - History of Present Illness HPI Comment/Other: Mr. Moon is a 79-year old male with a past medical history significant for non-insulin dependent diabetes mellitus type 2, essential hypertension, hyperl ipidemia, and status post of left inguinal hernia repair in the year 1999, malaria while he was in [place] in the , bulbar urethral stricture disease, recurrent UTI, urinary retention, nocturia, status post urethrotomy, long standing tobacco dependence in which he quit 5 years ago, who present ER complain of black stool. Pt report he was discharged on last Monday in this hospital. he had EGD and CT of abdomen, both did not reveal bleed site. He report he continued to have black stools which started about 10days ago, poor appetite that seems to come and go, increased dizziness, lethargy and some shortness of breath with ambulation. He denies fever, chill, chest pain, nausea, vomiting, abdominal pain. He denies taking any blood thinner or NASDs. His Vital signs was unremarkable and hemodynamic stable at ER. Upon examination, he appears pale with poor capillary refill. He can speak in full sentences, and he is not dizzy while lying in bed. Lab test in ER, it reveals his HGB is 6.1 from 7.4 on 03/09/19, elevated WBC is 13.7 and creatinine to 1.5. A general surgery consult has been made by ER. Pt is planned to have colonoscopy on next day. 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 He lived in [facility] for much of his life and worked for a [email or web address]. He has been retired for at least 10 years and has been living with his sister in [place] for the past 6 years. He continues to be independent with his ADLs, is active each day, and drives a car. He admits to long standing tobacco dependence from age [age] years in which he smoked 2 PPD. He denies alcohol or illicit drug use. He wishes to be a FULL code. - Substance History Use: Uses substance without health or social issues: NONE - POLST Patient has POLST: No POLST Status: Full Code Meds/Allgy - Home Medications Home Medications: Ambulatory Orders Medication Instructions Recorded Confirmed Atenolol 25 mg PO BID 03/07/19 03/07/19 Cholecalciferol (Vitamin D3) 2,000 unit PO DAILY 03/07/19 03/07/19 [Vitamin D3] Ciprofloxacin HCl 250 mg PO [id number] 03/07/19 03/07/19 Finasteride 5 mg PO DAILY 03/07/19 03/07/19 Metformin HCl [Metformin HCl ER] 1,000 mg PO Q12H 03/07/19 03/07/19 Pravastatin Sodium 10 mg PO DAILY 03/07/19 03/07/19 Tamsulosin HCl [Flomax] 0.4 mg PO QPM 03/07/19 03/07/19 Ferrous Gluconate 240 mg PO BID #60 tablet 03/09/19 Magnesium Oxide [Mag Ox] 400 mg PO BIDWM #60 tablet 03/09/19 Methenamine Hippurate [Hiprex] 1 gm PO BID #60 tablet 03/09/19 - Allergies Allergies/Adverse Reactions: Allergies Allergy/AdvReac Type Severity Reaction Status Date / Time Penicillins Allergy Unknown Verified 03/12/19 14:06 Review of Systems - Constitutional Constitutional: reports: Fatigue, Weakness, Poor appetite. denies: Fever, Chills, Malaise, Diaphoresis, Night sweats - Eyes Eyes: denies: Pain, Irritation, Amaurosis, Blurred vision, Spots in vision, Field loss, Vision loss, Dipolpia - Ears, Nose & Throat Ears, Nose & Throat: denies: Ear pain, Hearing loss, Hearing aids, Tinnitus, Vertigo, Nasal pain, Nasal discharge, Nosebleeds, Nasal obstruction, Nasal congestion, Postnasal drainage, Dentures, Sore throat, Hoarseness, Mouth lesions, Bleeding gums - Cardiovascular Cariovascular: denies: Irregular heart rate, Palpitations, Chest pain, Edema, Lightheadedness, Syncope, Exertional dyspnea - Respiratory Respiratory: reports: SOB with exertion. denies: Cough, Sputum production, Wheezing, Snoring, Hemoptysis, Orthopnea, SOB at rest - Gastrointestinal Gastrointestinal: reports: Black stools. denies: Abdominal pain, Abdominal distention, Constipation, Diarrhea, Change in bowel habits, Rectal bleeding, Bloody stools, Nausea, Vomiting, Bile emesis, Asa blood emesis, Coffee grounds emesis, Reflux/heartburn - Genitourinary Genitourinary: reports: Incontinence. denies: Dysuria, Frequency, Urgency, Hematuria, Flank pain, Nocturia, Urethral discharge - Musculoskeletal Musculoskeletal: denies: Muscle pain, Back pain, Muscle aches, Stiffness, Limited range of motion, Muscle weakness, Gout, Joint pain - Integumentary Integumentary: denies: Rash, Pruritis, Lesions, Dryness, Lumps, Acne, Pigment changes, Nail changes - Neurological Neurological: denies: General weakness, Focal weakness, Headache, Dizziness, Numbness, Memory problems, Pre-existing deficit, Abnormal gait, Seizures, Incoordination, Slurred speech - Psychiatric Psychiatric: denies: Depression, Anxiety, Suicidal, Delusions, Hallucinations, Homicidal - Endocrine Endocrine: denies: Polyuria, Polydypsia, Polyphagia, Intolerance to cold - Hematologic/Lymphatic Hematologic/Lymphatic: reports: Anemia. denies: Bruising, Petechiae, Blood clots, Lymphadenopathy, Bleeding tendencies Exam - Vital Signs Vital Signs: Vital Signs x48h Temp Pulse Resp BP Pulse Ox 03/12/19 16:35 36.5 C 82 13 113/48 L 99 03/12/19 16:25 82 12 123/42 L 100 03/12/19 16:20 36.5 C 83 14 124/44 L 100 03/12/19 16:00 87 18 126/44 L 100 03/12/19 15:30 90 18 106/47 L 100 03/12/19 15:06 84 15 110/51 L 95 03/12/19 14:36 84 16 115/41 L 100 03/12/19 14:06 76 16 109/43 L 100 03/12/19 13:56 36.7 C 104 H 20 133/101 H 97 - Physical Exam General Appearance: positive: No acute distress, Alert. negative: Lethargic Eyes Bilateral: positive: Normal inspection, PERRL, No lid inflammation, Conjunctivae nml ENT: positive: ENT inspection nml, Pharynx nml, No signs of dehydration. negative: Purulent nasal drainage, Pharyngeal erythema, Oral lesions Neck: positive: Nml inspection, Thyroid nml, No JVD, Trachea midline. negative: Thyromegaly, Lymphadenopathy (R), Lymphadenopathy (L), Stiff neck, Swelling/bruising, Tracheal deviation Respiratory: positive: Chest non-tender, No respiratory distress, Breath sounds nml. negative: Wheezes, Rales, Rhonchi Cardiovascular: positive: Regular rate & rhythm, No murmur, No gallop. neg ative: Irregularly irregular, Extrasystoles, Tachycardia, Bradycardia, JVD present, Systolic murmur, Diastolic murmur Peripheral Pulses: positive: 2+ Abdomen: positive: Non-tender, No organomegaly, Nml bowel sounds, No distention. negative: Tenderness, Guarding, Rebound Back: positive: Nml inspection. negative: CVA tenderness (R), CVA tenderness (L) Skin: positive: No rash, Warm, Dry, Pallor. negative: Cyanosis, Diaphoresis, Skin rash Extremities: positive: Non-tender, Full ROM, Nml appearance. negative: Calf tenderness, Joint swelling, Brittany's sign/cords Neurologic/Psychiatric: positive: Oriented x3, Motor nml, Sensation nml, Mood/affect nml. negative: Weakness, Sensory loss, Facial droop, Slurred/abnml speech, Depressed mood/affect Sepsis Event Note (H) - Evaluation Current Stage of Sepsis: Ruled out Conclusion/Plan - Problem List (1) GI bleeding Conclusion/Plan: pt had recent EGD and CT of abdomen which did not reveals bleeding site. pt continue to have black stool and today his HGB is 6.1 from 7.4 four days ago. consult with GI surgeon, plan to have colonoscopy transfusion of blood H&H Protonic Bid Qualifiers: GI bleed type/associated pathology: unspecified gastrointestinal hemorrhage type Qualified Code(s): K92.2 - Gastrointestinal hemorrhage, unspecified (2) Anemia Conclusion/Plan: today his HGB is 6.1, it appear from his acute GI blood loss. treat underline GI bleed, plan to have colonoscopy transfusion of 2 unit of blood H&H (3) Recurrent UTI (urinary tract infection) Conclusion/Plan: pt has hx of recurrent UTI, today test indicate pt still had UTI and WBC is 13.7. pt was prescribed Cipro by his urologist, but he report he only took one pill now. pt is hemodynamic stable now. continue PO cipro followup UA culture and sensitivity study lab and vital monitor (4) Diabetes mellitus type 2, controlled Conclusion/Plan: pt took Metformin at home. Glucose is 258 today. pt will be NPO tomorrow for procedure start ACHS, check A1C, will start slide scale after procedure. 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 pt had Atelol at home, will reconcile continue vital monitor - Lab Results Fish Bones: 03/12/19 14:25 03/12/19 14:25 Core Measures - Anticipated LOS I expect patient to be DC'd or transferred within 96 hours.: Yes - DVT/VTE - Prophylaxis VTE/DVT Device ordered at admit?: Yes VTE/DVT Prophylaxis med ordered at admit?: Yes
[2019-03-12] MEDS ORDERED: IPRATROPIUM/ALBUTEROL 3 ML NEB INH PRN (17:19)
[2019-03-12] MEDS ORDERED: ALBUTEROL NEB 2.5 MG/3 ML INH PRN (17:19)
[2019-03-12 19:13] LABS: BILIRUBIN,URINE NEGATIVE (NEGATIVE); GLUCOSE, URINE (UA) 100 mg/dL (NEGATIVE); KETONES,URINE (UA) TRACE mg/dL (NEGATIVE); LEUKOCYTE ESTERASE, URINE NEGATIVE (NEGATIVE); NITRITE,URINE NEGATIVE (NEGATIVE); OCCULT BLOOD,URINE NEGATIVE (NEGATIVE); PROTEIN,URINE NEGATIVE (NEGATIVE); UROBILINOGEN,URINE 0.2 (NORMAL) E.U./dL (NORMAL)
[2019-03-12 19:16] LABS: CLARITY,URINE HAZY (CLEAR)
[2019-03-12] MEDS: CIPROFLOXACIN 250 MG TABLET PO SCH ×2 (19:22→22:30)
[2019-03-12 19:32] LABS: RBC,URINE 0-5 /HPF (0-5)
[2019-03-12 19:33] LABS: BACTERIA,URINE Rare /HPF (None Seen); SQUAMOUS EPITHELIAL CELL,UR MOD Squamous (<= Few)
--- NOTE | 2019-03-12 21:03 | CONSULTATION NOTE ---
Referring Provider Name of Referring Provider:: [facility] Consult Date: 03/12/19 Chief Complaint - Chief Complaint Chief Complaint: recurrent GI bleed/melena/anemia History of Present Illness - Admitted From Admitted From:: ER - History Obtained From Records Reviewed: yes History obtained from: pt, records Exam Limitations: none - History of Present Illness HPI Comment/Other: 79 yo male who was hospitalized last week for evaluation of 10 days of melena associated with syncope and profound anemia. Evaluation included EGD and abd/pelvic CT scans both of which were negative. Pt appeared to stabilize and was discharged home to complete his w/u as an outpatient, but the melena recurred, with 4-5 black stools over the past 24 hours leading patient to return to the ER where his Hgb was noted to be 6, down from 7 at discharge last weekend. He denies BRBPR, abdominal pain, N/V, previous similar episodes, recent wt loss, use of NSAIDs, anticoagulants, or alcohol. He reports never having had a colonoscopy. Neg FH GI tumors. No dizziness or syncope with this recurrent episode. Surgical consultation was requested. 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 : reports: Chronic bladder infection, Renal insuffiency, Nocturia, Frequency, Other (bulbar urethral strictures) HEENT: reports: Chronic vision loss, Chronic sinusitis Psych: reports: None Musculoskeletal: reports: Fatigue Derm: reports: None MRSA Hx?: No - Past Surgical History General: reports: Other (left inguinal hernia repair in the year 1999) /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 He lived in [facility] [place] for much of his life and worked for a [employer]. He has been retired for at least 10 years and has been living with his sister in [place] for the past 6 years. He continues to be independent with his ADLs, is active each day, and drives a car. He admits to long standing tobacco dependence from age [age] years in which he smoked 2 PPD. He denies alcohol or illicit drug use. He wishes to be a FULL code. - Substance History Use: Uses substance without health or social issues: NONE - POLST Patient has POLST: No POLST Status: Full Code Meds/Allgy - Home Medications Home Medications: Ambulatory Orders Medication Instructions Recorded Confirmed Atenolol 25 mg PO BID 03/07/19 03/07/19 Cholecalciferol (Vitamin D3) 2,000 unit PO DAILY 03/07/19 03/07/19 [Vitamin D3] Ciprofloxacin HCl 250 mg PO [id number] 03/07/19 03/07/19 Finasteride 5 mg PO DAILY 03/07/19 03/07/19 Metformin HCl [Metformin HCl ER] 1,000 mg PO Q12H 03/07/19 03/07/19 Pravastatin Sodium 10 mg PO DAILY 03/07/19 03/07/19 Tamsulosin HCl [Flomax] 0.4 mg PO QPM 03/07/19 03/07/19 Ferrous Gluconate 240 mg PO BID #60 tablet 03/09/19 Magnesium Oxide [Mag Ox] 400 mg PO BIDWM #60 tablet 03/09/19 Methenamine Hippurate [Hiprex] 1 gm PO BID #60 tablet 03/09/19 - Allergies Allergies/Adverse Reactions: Allergies Allergy/AdvReac Type Severity Reaction Status Date / Time Penicillins Allergy Unknown Verified 03/12/19 14:06 Review of Systems - Constitutional Constitutional: denies: Weight gain, Weight loss - Gastrointestinal Gastrointestinal: reports: Change in bowel habits, Black stools. denies: Abdominal pain, Constipation, Diarrhea, Rectal bleeding, Bloody stools, Nausea, Vomiting, Bile emesis, Asa blood emesis, Coffee grounds emesis, Reflux/heartburn, Bloating, Poor appetite - Hematologic/Lymphatic Hematologic/Lymphatic: reports: Anemia. denies: Blood clots, Bleeding tendencies - All Other Systems All Other Systems: reports: Reviewed and negative (or covered in HPI/PMH) Exam - Vital Signs Reviewed Vital Signs: Yes Vital Signs: Vital Signs x48h Temp Pulse Pulse Resp BP BP Pulse Ox 03/12/19 19:20 37.1 C 87 16 135/56 H 03/12/19 17:23 80 20 127/40 L 94 03/12/19 17:00 86 16 131/53 H 96 03/12/19 16:35 36.5 C 82 13 113/48 L 99 03/12/19 16:25 82 12 123/42 L 100 03/12/19 16:20 36.5 C 83 14 124/44 L 100 03/12/19 16:00 87 18 126/44 L 100 03/12/19 15:30 90 18 106/47 L 100 03/12/19 15:06 84 15 110/51 L 95 03/12/19 14:36 84 16 115/41 L 100 03/12/19 14:06 76 16 109/43 L 100 03/12/19 13:56 36.7 C 104 H 20 133/101 H 97 - Physical Exam General Appearance: positive: No acute distress, Alert Eyes Bilateral: positive: Conjunctivae nml, No scleral icterus ENT: positive: ENT inspection nml, Pharynx nml, No signs of dehydration Neck: positive: Nml inspection, No JVD, Trachea midline. negative: Lymphadenopathy (R), Lymphadenopathy (L) Respiratory: positive: Chest non-tender, No respiratory distress, Other (decreased breath sounds at bases). negative: Breath sounds nml (decreased breath sounds at bases), Wheezes, Rales, Rhonchi Cardiovascular: positive: Regular rate & rhythm, No murmur, No gallop Abdomen: positive: Non-tender, No organomegaly, Nml bowel sounds, No distention. negative: Guarding, Rebound, Hepatomegaly, Splenomegaly, Mass Skin: positive: Color nml, No rash, Warm, Dry Extremities: positive: No pedal edema. negative: Calf tenderness Neurologic/Psychiatric: positive: Oriented x3 Conclusion/Plan - Diagnosis Diagnosis: Recurrent/persistent GI bleed/melena of unclear etiology. UGI w/u and abd/pelvic CT neg; lower gi source such as angiodysplasia, right colon tumor should be considered; also possible is a small bowel lesion not seen on CT such as angiodyplasia. He is hemodynamically stable at present. - Plan Plan: Bowel prep tonight for colonoscopy in am. PAR conference was held with patient and consent obtained. I agree with present medical management. Thanks, - Lab Results Fish Bones: 03/12/19 14:25 03/12/19 14:25 - Diagnostic Imaging Results Diagnostic Imaging Results: positive: Final report reviewed, Read independently Diagnostic Imaging Results Comments: See HPI
[2019-03-12] MEDS ORDERED: SODIUM CHLORIDE FLUSH 0.9% 10 ML SYRINGE ONE (22:25)
[2019-03-12] MEDS: PANTOPRAZOLE 40 MG VIAL IVP SCH (22:27)
[2019-03-12] MEDS: ATENOLOL 25 MG TABLET PO SCH (22:29)
[2019-03-12] MEDS: TAMSULOSIN 0.4 MG CAPSULE PO SCH (22:29)
[2019-03-12] MEDS: SODIUM/POTASSIUM/MAG SULFATES 354 ML PREP KIT PO SCH (22:30)
[2019-03-12] MEDS: SODIUM CHLORIDE FLUSH 0.9% 10 ML SYRINGE IVP SCH (22:31)
[2019-03-13] MEDS: SODIUM CHLORIDE 0.9% 1,000 ML IV SCH ×2 (00:01→11:22)
[2019-03-13] MEDS: SODIUM CHLORIDE FLUSH 0.9% 10 ML SYRINGE IVP SCH ×3 (00:06→16:53)
[2019-03-13 00:40] LABS: HGB - HEMOGLOBIN 8.6 g/dL (14.0-18.0)
[2019-03-13] MEDS: SODIUM/POTASSIUM/MAG SULFATES 354 ML PREP KIT PO SCH (04:57)
[2019-03-13 05:58] LABS: CALCIUM 8.1 mg/dL (8.5-10.3); CREATININE 1.2 mg/dL (0.6-1.2)
[2019-03-13 05:59] LABS: BASOPHILS % (AUTO) 0.4 %; EOSINOPHILS # (AUTO) 0.2 10^3/uL (0.0-0.7); EOSINOPHILS % (AUTO) 2.1 %; HGB - HEMOGLOBIN 8.6 g/dL (14.0-18.0); LYMPHOCYTES # (AUTO) 1.3 10^3/uL (1.5-3.5); MEAN CORPUSCULAR HEMOGLOBIN 28.4 pg (27.0-31.0); MEAN CORPUSCULAR HGB CONC 33.2 g/dL (32.0-36.0); MEAN CORPUSCULAR VOLUME 85.6 fL (80.0-94.0); MEAN PLATELET VOLUME 7.2 fL (7.4-11.4); MONOCYTES # (AUTO) 0.9 10^3/uL (0.0-1.0); MONOCYTES % (AUTO) 9.6 %; NEUTROPHILS # (AUTO) 6.5 10^3/uL (1.5-6.6); NEUTROPHILS % (AUTO) 72.9 %; PLT - PLATELET COUNT 382 10^3/uL (130-450); RED BLOOD COUNT 3.02 10^6/uL (4.70-6.10); WHITE BLOOD COUNT 8.9 x10^3/uL (4.8-10.8)
[2019-03-13 06:10] LABS: HB2 TOTAL 8.9 g/dL; HEMOGLOBIN A1C 0.41 g/dL; HEMOGLOBIN A1C % 6.4 % (4.6-6.2)
[2019-03-13 06:56] LABS: PLATELET ESTIMATE, MANUAL NORMAL (130-450,000) (NORMAL); PLATELET MORPHOLOGY NORMAL APPEARANCE (NORMAL)
[2019-03-13 06:57] LABS: DIFFERENTIAL COMMENT MANUAL=AUTO DIFF
[2019-03-13] MEDS: PANTOPRAZOLE 40 MG VIAL IVP SCH ×2 (08:35→20:50)
[2019-03-13] MEDS: FINASTERIDE 5 MG TABLET PO SCH (08:37)
[2019-03-13] MEDS: CIPROFLOXACIN 250 MG TABLET PO SCH (08:37)
[2019-03-13] MEDS: ATENOLOL 25 MG TABLET PO SCH ×2 (08:37→20:50)
--- NOTE | 2019-03-13 08:42 | ANESTHESIA ---
Pre-Anesthesia VS, & Labs - Diagnosis Diagnosis Recurrent/persistent GI bleed/melena of unclear etiology. UGI w/u and abd/pelvic CT neg; lower gi source such as angiodysplasia, right colon tumor should be considered; also possible is a small bowel lesion not seen on CT such as angiodyplasia. He is hemodynamically stable at present. - Procedure Colonoscopy Vital Signs: Temp Pulse Resp BP Pulse Ox 36.7 C 79 18 123/56 L 100 03/13/19 08:32 03/13/19 08:32 03/13/19 08:32 03/13/19 08:32 03/13/19 08:32 Height 5 ft 10 in Weight (kg) 68.5 kg Body Mass Index 22.6 - NPO >8 hours - Lab Results Current Lab Results: Laboratory Tests 03/13/19 06:44: POC Whole Bld Glucose 147 H 03/13/19 05:27: Glycated Hemoglobin 6.4 H, Estim Average Glucose 137 H 03/13/19 05:27: Sodium 140, Potassium 3.9, Chloride 105, Carbon Dioxide 24, Anion Gap 11.0, BUN 28 H, Creatinine 1.2, Estimated GFR (MDRD) 59 L, Glucose 132 H, Calcium 8.1 L 03/13/19 05:27: WBC 8.9, RBC 3.02 L, Hgb 8.6 L, Hct 25.9 L, MCV 85.6, MCH 28.4, MCHC 33.2, RDW 21.0 H, Plt Count 382, MPV 7.2 L, Neut # (Auto) 6.5, Lymph # (Auto) 1.3 L, [place] # (Auto) 0.9, Eos # (Auto) 0.2, Baso # (Auto) 0.0, Absolute Nucleated RBC 0.01, Band Neuts % (Manual) Not Reportable, Abnorm Lymph % (Man ual) Not Reportable, Nucleated RBC % 0.1, Neutrophils # (Manual) Not Reportable, Lymphocytes # (Manual) Not Reportable, Monocytes # (Manual) Not Reportable, Eosinophils # (Manual) Not Reportable, Basophils # (Manual) Not Reportable, Differential Comment MANUAL=AUTO DIFF, WBC Morphology NORMAL APPEARANCE, Platelet Estimate NORMAL (130-450,000), Platelet Morphology NORMAL APPEARANCE, RBC Morph Micro Appear 1+ OVALOCYTES 03/13/19 00:30: Hgb 8.6 L, Hct 25.0 L 03/12/19 17:56: POC Whole Bld Glucose 179 H 03/12/19 15:07: Blood Type Cancelled, Antibody Screen Cancelled, Crossmatch IS Only See Detail 03/12/19 15:07: Blood Type O POSITIVE, Antibody Screen NEGATIVE 03/12/19 14:25: B-Natriuretic Peptide 244 H 03/12/19 14:25: Troponin I < 0.04 03/12/19 14:25: Sodium 138, Potassium 4.9, Chloride 103, Carbon Dioxide 20 L, Anion Gap 15.0 H, BUN 30 H, Creatinine 1.5 H, Estimated GFR (MDRD) 45 L, Glucose 258 H, Calcium 8.6, Magnesium 1.8, Total Bilirubin 0.4, AST 19, ALT 10, Alkaline Phosphatase 63, Total Protein 6.0 L, Albumin 2.8 L, Globulin 3.2, Albumin/Globulin Ratio 0.9 L, Lipase 31 03/12/19 14:25: WBC 13.7 H, RBC 2.06 L, Hgb 6.1 L*, Hct 18.7 L*, MCV 90.9, MCH 29.4, MCHC 32.3, RDW 16.7 H, Plt Count 411, MPV 7.7, Neut # (Auto) 11.5 H, Lymph # (Auto) 1.1 L, [place] # (Auto) 0.9, Eos # (Auto) 0.2, Baso # (Auto) 0.1, Absolute Nucleated RBC 0.01, Nucleated RBC % 0.0, Manual Slide Review Indicated, WBC Morphology NORMAL APPEARANCE, Platelet Estimate NORMAL (130-450,000), Platelet Morphology NORMAL APPEARANCE, RBC Morph Micro Appear 3+ POLYCHROMASIA Fish Bones: 03/13/19 05:27 03/13/19 05:27 Home Medications and Allergies Active Medications Acetaminophen (Tylenol) 650 mg PO Q4HR PRN PRN Reason: Pain 1 to 4 Albuterol () 2.5 mg INH RTQ4H PRN PRN Reason: Wheezing Albuterol/Ipratropium (Duoneb) 3 ml INH Q4HR PRN PRN Reason: Wheezing Atenolol (Tenormin) 25 mg PO BID JOSÉ MIGUEL Last Admin: 03/13/19 08:37 Dose: 25 mg Ciprofloxacin (Cipro) 500 mg PO BID [facility] Last Admin: 03/13/19 08:37 Dose: 500 mg Finasteride (Proscar) 5 mg PO DAILY [facility] Last Admin: 03/13/19 08:37 Dose: 5 mg Sodium Chloride (Normal Saline 0.9%) 1,000 mls @ 85 mls/hr IV .[id number] [facility] Stop: 03/13/19 16:31 Last Admin: 03/13/19 00:01 Dose: 85 mls/hr Ondansetron HCl (Zofran Inj) 4 mg IVP Q6HR PRN PRN Reason: Nausea / Vomiting Pantoprazole Sodium (Protonix) 40 mg IVP BID [facility] Last Admin: 03/13/19 08:35 Dose: 40 mg Sodium Chloride (Normal Saline Flush 0.9%) 10 ml IVP PRN PRN PRN Reason: NEEDED PER PROVIDER ORDERS Sodium Chloride (Normal Saline Flush 0.9%) 10 ml IVP 0100,0900,1700 [facility] Last Admin: 03/13/19 08:37 Dose: 10 ml Tamsulosin HCl (Flomax) 0.4 mg PO QPM [facility] Last Admin: 03/12/19 22:29 Dose: 0.4 mg Zolpidem Tartrate (Ambien) 5 mg PO QPM PRN PRN Reason: Insomnia Atenolol 25 mg PO BID 03/07/19 Cholecalciferol (Vitamin D3) [Vitamin D3] 2,000 unit PO DAILY 03/07/19 Ciprofloxacin HCl 250 mg PO [id number] 03/07/19 Finasteride 5 mg PO DAILY 03/07/19 Metformin HCl [Metformin HCl ER] 1,000 mg PO Q12H 03/07/19 Pravastatin Sodium 10 mg PO DAILY 03/07/19 Tamsulosin HCl [Flomax] 0.4 mg PO QPM 03/07/19 Allergies/Adverse Reactions: Allergies Allergy/AdvReac Type Severity Reaction Status Date / Time Penicillins Allergy Unknown Verified 03/12/19 14:06 Anes History & Medical History - Anesthetic History Anesthesia Complications: reports: No previous complications - Medical History Cardiovascular: reports: Hypertension, High cholesterol Pulmonary: reports: COPD, Emphysema Gastrointestinal: reports: GI bleed Urinary: reports: Chronic bladder infection, Renal insuffiency, Nocturia, Frequency, Other (bulbar urethral strictures) Neuro: reports: Fainting Musculoskeletal: reports: Fatigue Endocrine/Autoimmune: reports: Type 2 diabetes Blood Disorders: reports: Anemia Skin: reports: None Smoking Status: Former smoker Psychosocial: reports: No issues indicated - Surgical History General: Other (left inguinal hernia repair in the year 1999) Eyes Ears Nose Throat (EENT): Cataracts Gynecologic: Other (urethral dilatations) Exam General: Alert, Oriented x3, Cooperative, No acute distress Dental: Other (edentulous) Respiratory: Lungs clear, Normal breath sounds, No respiratory distress, No accessory muscle use Cardiovascular: Regular rate, Normal S1, Normal S2, No murmurs Mental/Cognitive Status: Alert/Oriented X3, Normal for patient Plan Anesthesia Type: MAC Consent for Procedure(s) Verified and Reviewed: Yes Code Status: Attempt Resuscitation ASA classification: 3-Severe systemic disease Is this case an emergency?: No
[2019-03-13] MEDS ORDERED: POLYETHYLENE GLYCOL 3350 17 GM PACKET PO SCH (09:00)
[2019-03-13] MEDS ORDERED: CYANOCOBALAMIN 1,000 MCG/ML VIAL IM ONE (10:37)
--- NOTE | 2019-03-13 10:48 | PROVIDER PROGRESS NOTE ---
Assessment/Plan - Problem List (1) GI bleeding Qualifiers: GI bleed type/associated pathology: melena Qualified Code(s): K92.1 - Melena Assessment/Plan: clinically stable and appears to be resolving; etiology unclear; plan colonoscopy today for further evaluation. (2) Anemia Qualifiers: Anemia type: other cause Other causes of anemia: acute posthemorrhagic Qualified Code(s): D62 - Acute posthemorrhagic anemia Assessment/Plan: blood loss in etiology, with good response to transfusion last night; plan colonoscopy today. - Current Meds Current Meds: Current Medications Generic Name Dose Route Start Last Admin Trade Name Freq PRN Reason Stop Dose Admin Atenolol 25 mg 03/12/19 21:00 03/13/19 08:37 Tenormin PO 25 mg BID JOSÉ MIGUEL Administration Ciprofloxacin 500 mg 03/12/19 17:40 03/13/19 08:37 Cipro PO 500 mg BID JOSÉ MIGUEL Administration Finasteride 5 mg 03/13/19 09:00 03/13/19 08:37 Proscar PO 5 mg DAILY JOSÉ MIGUEL Administration Sodium Chloride 1,000 mls @ 85 mls/hr 03/12/19 17:00 03/13/19 00:01 Normal Saline 0.9% IV 03/13/19 16:31 85 mls/hr .[id number] JOSÉ MIGUEL Administration Pantoprazole Sodium 40 mg 03/12/19 21:00 03/13/19 08:35 Protonix IVP 40 mg BID JOSÉ MIGUEL Administration Sodium Chloride 10 ml 03/12/19 17:00 03/13/19 08:37 Normal Saline Flush 0.9% IVP 10 ml 0100,0900,1700 JOSÉ MIGUEL Administration Tamsulosin HCl 0.4 mg 03/12/19 21:00 03/12/19 22:29 Flomax PO 0.4 mg QPM JOSÉ MIGUEL Administration - Lab Result Fish Bone Diagrams: 03/13/19 05:27 03/13/19 05:27 - Additional Planning Condition/Complexity: Stable Plan Discussed with:: Patient Time Spent: 15-30 minutes Subjective - Subjective Patient Reports: Resting Comfortably, No Complaints (tolerated bowel prep well; bm's last night were black, this am are clear yellow fluid in nature) Objective Vital Signs: Vital Signs - 24 hr 03/12/19 03/12/19 03/12/19 13:56 14:06 14:36 Temperature 36.7 C Heart Rate 104 H 76 84 Heart Rate [ Brachial] Respiratory 20 16 16 Rate Blood Pressure 133/101 H 109/43 L 115/41 L Blood Pressure [Right Brachial artery] O2 Saturation 97 100 100 03/12/19 03/12/19 03/12/19 15:06 15:30 16:00 Temperature Heart Rate 84 90 87 Heart Rate [ Brachial] Respiratory 15 18 18 Rate Blood Pressure 110/51 L 106/47 L 126/44 L Blood Pressure [Right Brachial artery] O2 Saturation 95 100 100 03/12/19 03/12/19 03/12/19 16:20 16:25 16:35 Temperature 36.5 C 36.5 C Heart Rate 83 82 82 Heart Rate [ Brachial] Respiratory 14 12 13 Rate Blood Pressure 124/44 L 123/42 L 113/48 L Blood Pressure [Right Brachial artery] O2 Saturation 100 100 99 03/12/19 03/12/19 03/12/19 17:00 17:23 19:20 Temperature 37.1 C Heart Rate 86 87 Heart Rate [ 80 Brachial] Respiratory 16 20 16 Rate Blood Pressure 131/53 H 135/56 H Blood Pressure 127/40 L [Right Brachial artery] O2 Saturation 96 94 03/12/19 03/12/19 03/12/19 20:40 20:55 23:55 Temperature 37 C 36.7 C 36.6 C Heart Rate 91 85 Heart Rate [ 90 Brachial] Respiratory 16 16 18 Rate Blood Pressure 128/55 L 125/50 L Blood Pressure 110/54 L [Right Brachial artery] O2 Saturation 100 03/12/19 03/13/19 03/13/19 23:57 03:52 08:32 Temperature 36.6 C 36.7 C 36.7 C Heart Rate 90 Heart Rate [ 71 79 Brachial] Respiratory 18 16 18 Rate Blood Pressure 110/54 L Blood Pressure 129/56 L 123/56 L [Right Brachial artery] O2 Saturation 100 100 Oxygen O2 Source Room air I&O (Last 24 Hrs): Intake and Output Totals x24h 03/11/19 03/12/19 03/13/19 23:59 23:59 23:59 Intake Total 2425 2000 Output Total 250 806 Balance 2175 1194 General: Alert, Oriented x3, Cooperative Abdomen: Soft, No tenderness, No hepatospenomegaly, No masses - Results Results: Laboratory Results WBC 8.9 x10^3/uL (4.8-10.8) 03/13/19 05:27 RBC 3.02 10^6/uL (4.70-6.10) L 03/13/19 05:27 Hgb 8.6 g/dL (14.0-18.0) L 03/13/19 05:27 Hct 25.9 % (42.0-52.0) L 03/13/19 05:27 MCV 85.6 fL (80.0-94.0) 03/13/19 05:27 MCH 28.4 pg (27.0-31.0) 03/13/19 05:27 MCHC 33.2 g/dL (32.0-36.0) 03/13/19 05:27 RDW 21.0 % (12.0-15.0) H 03/13/19 05:27 Plt Count 382 10^3/uL (130-450) 03/13/19 05:27 MPV 7.2 fL (7.4-11.4) L 03/13/19 05:27 Neut # (Auto) 6.5 10^3/uL (1.5-6.6) 03/13/19 05:27 Lymph # (Auto) 1.3 10^3/uL (1.5-3.5) L 03/13/19 05:27 [place] # (Auto) 0.9 10^3/uL (0.0-1.0) 03/13/19 05:27 Eos # (Auto) 0.2 10^3/uL (0.0-0.7) 03/13/19 05:27 Baso # (Auto) 0.0 10^3/uL (0.0-0.1) 03/13/19 05:27 Absolute Nucleated RBC 0.01 x10^3/uL 03/13/19 05:27 Band Neuts % (Manual) Not Reportable 03/13/19 05:27 Abnorm Lymph % (Manual) Not Reportable 03/13/19 05:27 Nucleated RBC % 0.1 /100WBC 03/13/19 05:27 Neutrophils # (Manual) Not Reportable 03/13/19 05:27 Lymphocytes # (Manual) Not Reportable 03/13/19 05:27 Monocytes # (Manual) Not Reportable 03/13/19 05:27 Eosinophils # (Manual) Not Reportable 03/13/19 05:27 Basophils # (Manual) Not Reportable 03/13/19 05:27 Differential Comment MANUAL=AUTO DIFF 03/13/19 05:27 Manual Slide Review Indicated 03/12/19 14:25 WBC Morphology NORMAL APPEARANCE (NORMAL) 03/13/19 05:27 Platelet Estimate NORMAL (130-450,000) (NORMAL) 03/13/19 05:27 Platelet Morphology NORMAL APPEARANCE (NORMAL) 03/13/19 05:27 RBC Morph Micro Appear 1+ ANISOCYTOSIS (NORMAL) 3+ POLYCHROMASIA (NORMAL) 03/12/19 14:25 RBC Morph Micro Appear 2+ ANISOCYTOSIS (NORMAL) 1+ POLYCHROMASIA (NORMAL) 2+ HYPOCHROMASIA (NORMAL) 1+ OVALOCYTES (NORMAL) 03/13/19 05:27 RBC Morph Micro Appear 2+ ANISOCYTOSIS (NORMAL) 1+ POLYCHROMASIA (NORMAL) 2+ HYPOCHROMASIA (NORMAL) 1+ OVALOCYTES (NORMAL) 03/13/19 05:27 RBC Morph Micro Appear 2+ ANISOCYTOSIS (NORMAL) 1+ POLYCHROMASIA (NORMAL) 2+ HYPOCHROMASIA (NORMAL) 1+ OVALOCYTES (NORMAL) 03/13/19 05:27 RBC Morph Micro Appear 2+ ANISOCYTOSIS (NORMAL) 1+ POLYCHROMASIA (NORMAL) 2+ HYPOCHROMASIA (NORMAL) 1+ OVALOCYTES (NORMAL) 03/13/19 05:27 Sodium 140 mmol/L (135-145) 03/13/19 05:27 Potassium 3.9 mmol/L (3.5-5.0) 03/13/19 05:27 Chloride 105 mmol/L (101-111) 03/13/19 05:27 Carbon Dioxide 24 mmol/L (21-32) 03/13/19 05:27 Anion Gap 11.0 (6-13) 03/13/19 05:27 BUN 28 mg/dL (6-20) H 03/13/19 05:27 Creatinine 1.2 mg/dL (0.6-1.2) 03/13/19 05:27 Estimated GFR (MDRD) 59 (>89) L 03/13/19 05:27 Glucose 132 mg/dL (70-100) H 03/13/19 05:27 POC Whole Bld Glucose 147 mg/dL (70 - 100) H 03/13/19 06:44 Glycated Hemoglobin 6.4 % (4.6-6.2) H 03/13/19 05:27 Estim Average Glucose 137 (70-100) H 03/13/19 05:27 Calcium 8.1 mg/dL (8.5-10.3) L 03/13/19 05:27 Magnesium 1.8 mg/dL (1.7-2.8) 03/12/19 14:25 Total Bilirubin 0.4 mg/dL (0.2-1.0) 03/12/19 14:25 AST 19 IU/L (10-42) 03/12/19 14:25 ALT 10 IU/L (10-60) 03/12/19 14:25 Alkaline Phosphatase 63 IU/L (42-121) 03/12/19 14:25 Troponin I < 0.04 ng/mL (<0.49) 03/12/19 14:25 B-Natriuretic Peptide 244 pg/mL (5-100) H 03/12/19 14:25 Total Protein 6.0 g/dL (6.7-8.2) L 03/12/19 14:25 Albumin 2.8 g/dL (3.2-5.5) L 03/12/19 14:25 Globulin 3.2 g/dL (2.1-4.2) 03/12/19 14:25 Albumin/Globulin Ratio 0.9 (1.0-2.2) L 03/12/19 14:25 Lipase 31 U/L (22-51) 03/12/19 14:25 Urine Color YELLOW 03/12/19 18:56 Urine Clarity HAZY (CLEAR) 03/12/19 18:56 Urine pH 5.0 PH (5.0-7.5) 03/12/19 18:56 Ur Specific [place] 1.015 (1.002-1.030) 03/12/19 18:56 Urine Protein NEGATIVE mg/dL (NEGATIVE) 03/12/19 18:56 Urine Glucose (UA) 100 mg/dL (NEGATIVE) H 03/12/19 18:56 Urine Ketones TRACE mg/dL (NEGATIVE) 03/12/19 18:56 Urine Occult Blood NEGATIVE (NEGATIVE) 03/12/19 18:56 Urine Nitrite NEGATIVE (NEGATIVE) 03/12/19 18:56 Urine Bilirubin NEGATIVE (NEGATIVE) 03/12/19 18:56 Urine Urobilinogen 0.2 (NORMAL) E.U./dL (NORMAL) 03/12/19 18:56 Ur Leukocyte Esterase NEGATIVE (NEGATIVE) 03/12/19 18:56 Urine RBC 0-5 /HPF (0-5) 03/12/19 18:56 Urine WBC 0-3 /HPF (0-3) 03/12/19 18:56 Ur Squamous Epith Cells MOD Squamous (<= Few) H 03/12/19 18:56 Urine Bacteria Rare /HPF (None Seen) 03/12/19 18:56 Urine Culture Comments NOT INDICATED 03/12/19 18:56 Blood Type O POSITIVE 03/12/19 15:07 Antibody Screen NEGATIVE 03/12/19 15:07 Crossmatch IS Only See Detail 03/12/19 15:07 Sepsis Event Note (H) - Evaluation Current Stage of Sepsis: Ruled out ABX Reporting Has patient been on IV antibiotics over the past 48 hours?: No
[2019-03-13] MEDS: FOLIC ACID 1 MG TABLET PO SCH (11:19)
[2019-03-13] MEDS ORDERED: SODIUM CHLORIDE 0.9% 1,000 ML IV ONE (11:51)
[2019-03-13] MEDS ORDERED: PROPOFOL 200 MG/20 ML VIAL IVP ONE (12:49)
--- NOTE | 2019-03-13 13:18 | PROCEDURE REPORT ---
Hospitalist Procedure Note - Procedure Note Procedure Note: Colonoscopy showed no active bleeding or source of bleeding. Several polyps were removed and mild left sided tics were noted. See separate full procedure note for details. Rec: resume diet, home soon and outpt f/u with capsule endoscopy. If rebleeds consider tagged rbc scan and/or mesenteric angiography. Discussed with patient.
[2019-03-13 14:23] LABS: HGB - HEMOGLOBIN 7.8 g/dL (14.0-18.0)
--- NOTE | 2019-03-13 15:57 | PROVIDER PROGRESS NOTE ---
Subjective - Prog Note Date Prog Note Date: 03/13/19 - Subjective Pt reports feeling: No change Subjective: pt had colonoscopy on this morning, surgeon did not find bleed site. But pt's HGB continue to drop from 8.6 to 7.8 now. pt did not have bowel movement yet, occult stool test is pending. I called pt's sister Sabi Celestin state she tries to call [facility] ER to see if pt can be transferred. I called Dr. Antonio Carias, state he did not see any blood in the colon or bleed site at the colon. Current Medications - Current Medications Current Medications: Active Medications Acetaminophen (Tylenol) 650 mg PO Q4HR PRN PRN Reason: Pain 1 to 4 Albuterol () 2.5 mg INH RTQ4H PRN PRN Reason: Wheezing Albuterol/Ipratropium (Duoneb) 3 ml INH Q4HR PRN PRN Reason: Wheezing Atenolol (Tenormin) 25 mg PO BID [facility] Last Admin: 03/13/19 08:37 Dose: 25 mg Cyanocobalamin (Vitamin B-12) 500 mcg PO DAILY [facility] Ferrous Sulfate (Feosol) 325 mg PO BIDWM [facility] Finasteride (Proscar) 5 mg PO DAILY [facility] Last Admin: 03/13/19 08:37 Dose: 5 mg Folic Acid () 1 mg PO DAILY [facility] Last Admin: 03/13/19 11:19 Dose: 1 mg Insulin Aspart (Novolog) 1 - 9 unit SUBQ 0800,1200,1700,2100 [facility]; Protocol Ondansetron HCl (Zofran Inj) 4 mg IVP Q6HR PRN PRN Reason: Nausea / Vomiting Pantoprazole Sodium (Protonix) 40 mg IVP BID [facility] Last Admin: 03/13/19 08:35 Dose: 40 mg Sodium Chloride (Normal Saline Flush 0.9%) 10 ml IVP PRN PRN PRN Reason: NEEDED PER PROVIDER ORDERS Sodium Chloride (Normal Saline Flush 0.9%) 10 ml IVP 0100,0900,1700 [facility] Last Admin: 03/13/19 08:37 Dose: 10 ml Tamsulosin HCl (Flomax) 0.4 mg PO QPM [facility] Last Admin: 03/12/19 22:29 Dose: 0.4 mg Zolpidem Tartrate (Ambien) 5 mg PO QPM PRN PRN Reason: Insomnia Atenolol 25 mg PO BID 03/07/19 Cholecalciferol (Vitamin D3) [Vitamin D3] 2,000 unit PO DAILY 03/07/19 Ciprofloxacin HCl 250 mg PO [id number] 03/07/19 Finasteride 5 mg PO DAILY 03/07/19 Metformin HCl [Metformin HCl ER] 1,000 mg PO Q12H 03/07/19 Pravastatin Sodium 10 mg PO DAILY 03/07/19 Tamsulosin HCl [Flomax] 0.4 mg PO QPM 03/07/19 Objective - Vital Signs/Intake & Output Reviewed Vital Signs: Yes Vital Signs: Vital Signs x48h Temp Pulse Resp BP Pulse Ox 03/13/19 12:45 37.0 C 68 14 124/94 H 98 03/13/19 12:02 36.9 C 74 18 125/59 L 99 03/13/19 08:32 36.7 C 79 18 123/56 L 100 Intake & Output: Intake & Output 03/10/19 03/11/19 03/12/19 03/13/19 23:59 23:59 23:59 23:59 Intake Total 2425 2964.75 Output Total 250 1406 Balance 2175 1558.75 - Objective General Appearance: positive: No acute distress, Alert. negative: Lethargic Eyes Bilateral: positive: Normal inspection, PERRL, No lid inflammation, Conjunctivae nml ENT: positive: ENT inspection nml, Pharynx nml, No signs of dehydration. negative: Purulent nasal drainage, Pharyngeal erythema, Oral lesions Neck: positive: Nml inspection, Thyroid nml, No JVD, Trachea midline. negative: Thyromegaly, Lymphadenopathy (R), Lymphadenopathy (L), Stiff neck, Swelling/bruising, Tracheal deviation Respiratory: positive: Chest non-tender, No respiratory distress, Breath sounds nml. negative: Wheezes, Rales, Rhonchi Cardiovascular: positive: Regular rate & rhythm, No murmur, No gallop. negative: Irregularly irregular, Extrasystoles, Tachycardia, Bradycardia, JVD present, Systolic murmur, Diastolic murmur Peripheral Pulses: 2+ Radial (R), 2+ Radial (L), 2+ Dorsalis pedis (R), 2+ Dorsalis pedis (L) Abdomen: positive: Non-tender, No organomegaly, Nml bowel sounds, No distention. negative: Tenderness, Guarding, Rebound Back: positive: Nml inspection. negative: CVA tenderness (R), CVA tenderness (L) Skin: positive: Color nml, No rash, Warm, Dry. negative: Cyanosis, Diaphoresis, Pallor Extremities: positive: Non-tender, Full ROM, Nml appearance. negative: Calf tenderness, Joint swelling, Brittany's sign/cords Neurologic/Psychiatric: positive: Oriented x3, Sensation nml, Mood/affect nml. negative: Weakness, Sensory loss, Facial droop, Slurred/abnml speech, Depressed mood/affect - Lab Results Fish Bones: 03/13/19 14:10 03/13/19 05:27 Other Labs: Lab Results x24hrs 03/13/19 03/13/19 03/13/19 Range/Units 14:10 06:44 05:27 WBC (4.8-10.8) x10^3/uL RBC (4.70-6.10) 10^6/uL Hgb 7.8 L (14.0-18.0) g/dL Hct 23.4 L (42.0-52.0) % MCV (80.0-94.0) fL MCH (27.0-31.0) pg MCHC (32.0-36.0) g/dL RDW (12.0-15.0) % Plt Count (130-450) 10^3/uL MPV (7.4-11.4) fL Neut # (Auto) (1.5-6.6) 10^3/uL Lymph # (Auto) (1.5-3.5) 10^3/uL [place] # (Auto) (0.0-1.0) 10^3/uL Eos # (Auto) (0.0-0.7) 10^3/uL Baso # (Auto) (0.0-0.1) 10^3/uL Absolute Nucleated RBC x10^3/uL Band Neuts % (Manual) Abnorm Lymph % (Manual) Nucleated RBC % /100WBC Neutrophils # (Manual) Lymphocytes # (Manual) Monocytes # (Manual) Eosinophils # (Manual) Basophils # (Manual) Differential Comment WBC Morphology (NORMAL) Platelet Estimate (NORMAL) Platelet Morphology (NORMAL) RBC Morph Micro Appear (NORMAL) Sodium (135-145) mmol/L Potassium (3.5-5.0) mmol/L Chloride (101-111) mmol/L Carbon Dioxide (21-32) mmol/L Anion Gap (6-13) BUN (6-20) mg/dL Creatinine (0.6-1.2) mg/dL Estimated GFR (MDRD) (>89) Glucose (70-100) mg/dL POC Whole Bld Glucose 147 H (70 - 100) mg/dL Glycated Hemoglobin 6.4 H (4.6-6.2) % Estim Average Glucose 137 H (70-100) Calcium (8.5-10.3) mg/dL Urine Color Urine Clarity (CLEAR) Urine pH (5.0-7.5) PH Ur Specific [place] (1.002-1.030) Urine Protein (NEGATIVE) mg/dL Urine Glucose (UA) (NEGATIVE) mg/dL Urine Ketones (NEGATIVE) mg/dL Urine Occult Blood (NEGATIVE) Urine Nitrite (NEGATIVE) Urine Bilirubin (NEGATIVE) Urine Urobilinogen (NORMAL) E.U./dL Ur Leukocyte Esterase (NEGATIVE) Urine RBC (0-5) /HPF Urine WBC (0-3) /HPF Ur Squamous Epith Cells (<= Few) Urine Bacteria (None Seen) /HPF Urine Culture Comments Blood Type Antibody Screen Crossmatch IS Only 03/13/19 03/13/19 03/13/19 Range/Units 05:27 05:27 00:30 WBC 8.9 (4.8-10.8) x10^3/uL RBC 3.02 L (4.70-6.10) 10^6/uL Hgb 8.6 L 8.6 L (14.0-18.0) g/dL Hct 25.9 L 25.0 L (42.0-52.0) % MCV 85.6 (80.0-94.0) fL MCH 28.4 (27.0-31.0) pg MCHC 33.2 (32.0-36.0) g/dL RDW 21.0 H (12.0-15.0) % Plt Count 382 (130-450) 10^3/uL MPV 7.2 L (7.4-11.4) fL Neut # (Auto) 6.5 (1.5-6.6) 10^3/uL Lymph # (Auto) 1.3 L (1.5-3.5) 10^3/uL [place] # (Auto) 0.9 (0.0-1.0) 10^3/uL Eos # (Auto) 0.2 (0.0-0.7) 10^3/uL Baso # (Auto) 0.0 (0.0-0.1) 10^3/uL Absolute Nucleated RBC 0.01 x10^3/uL Band Neuts % (Manual) Not Reportable Abnorm Lymph % (Manual) Not Reportable Nucleated RBC % 0.1 /100WBC Neutrophils # (Manual) Not Reportable Lymphocytes # (Manual) Not Reportable Monocytes # (Manual) Not Reportable Eosinophils # (Manual) Not Reportable Basophils # (Manual) Not Reportable Differential Comment MANUAL=AUTO DIFF WBC Morphology NORMAL APPEARANCE (NORMAL) Platelet Estimate NORMAL (130-450,000) (NORMAL) Platelet Morphology NORMAL APPEARANCE (NORMAL) RBC Morph Micro Appear 1+ OVALOCYTES (NORMAL) Sodium 140 (135-145) mmol/L Potassium 3.9 (3.5-5.0) mmol/L Chloride 105 (101-111) mmol/L Carbon Dioxide 24 (21-32) mmol/L Anion Gap 11.0 (6-13) BUN 28 H (6-20) mg/dL Creatinine 1.2 (0.6-1.2) mg/dL Estimated GFR (MDRD) 59 L (>89) Glucose 132 H (70-100) mg/dL POC Whole Bld Glucose (70 - 100) mg/dL Glycated Hemoglobin (4.6-6.2) % Estim Average Glucose (70-100) Calcium 8.1 L (8.5-10.3) mg/dL Urine Color Urine Clarity (CLEAR) Urine pH (5.0-7.5) PH Ur Specific [place] (1.002-1.030) Urine Protein (NEGATIVE) mg/dL Urine Glucose (UA) (NEGATIVE) mg/dL Urine Ketones (NEGATIVE) mg/dL Urine Occult Blood (NEGATIVE) Urine Nitrite (NEGATIVE) Urine Bilirubin (NEGATIVE) Urine Urobilinogen (NORMAL) E.U./dL Ur Leukocyte Esterase (NEGATIVE) Urine RBC (0-5) /HPF Urine WBC (0-3) /HPF Ur Squamous Epith Cells (<= Few) Urine Bacteria (None Seen) /HPF Urine Culture Comments Blood Type Antibody Screen Crossmatch IS Only 03/12/19 03/12/19 03/12/19 Range/Units 18:56 17:56 15:07 WBC (4.8-10.8) x10^3/uL RBC (4.70-6.10) 10^6/uL Hgb (14.0-18.0) g/dL Hct (42.0-52.0) % MCV (80.0-94.0) fL MCH (27.0-31.0) pg MCHC (32.0-36.0) g/dL RDW (12.0-15.0) % Plt Count (130-450) 10^3/uL MPV (7.4-11.4) fL Neut # (Auto) (1.5-6.6) 10^3/uL Lymph # (Auto) (1.5-3.5) 10^3/uL [place] # (Auto) (0.0-1.0) 10^3/uL Eos # (Auto) (0.0-0.7) 10^3/uL Baso # (Auto) (0.0-0.1) 10^3/uL Absolute Nucleated RBC x10^3/uL Band Neuts % (Manual) Abnorm Lymph % (Manual) Nucleated RBC % /100WBC Neutrophils # (Manual) Lymphocytes # (Manual) Monocytes # (Manual) Eosinophils # (Manual) Basophils # (Manual) Differential Comment WBC Morphology (NORMAL) Platelet Estimate (NORMAL) Platelet Morphology (NORMAL) RBC Morph Micro Appear (NORMAL) Sodium (135-145) mmol/L Potassium (3.5-5.0) mmol/L Chloride (101-111) mmol/L Carbon Dioxide (21-32) mmol/L Anion Gap (6-13) BUN (6-20) mg/dL Creatinine (0.6-1.2) mg/dL Estimated GFR (MDRD) (>89) Glucose (70-100) mg/dL POC Whole Bld Glucose 179 H (70 - 100) mg/dL Glycated Hemoglobin (4.6-6.2) % Estim Average Glucose (70-100) Calcium (8.5-10.3) mg/dL Urine Color YELLOW Urine Clarity HAZY (CLEAR) Urine pH 5.0 (5.0-7.5) PH Ur Specific [place] 1.015 (1.002-1.030) Urine Protein NEGATIVE (NEGATIVE) mg/dL Urine Glucose (UA) 100 H (NEGATIVE) mg/dL Urine Ketones TRACE (NEGATIVE) mg/dL Urine Occult Blood NEGATIVE (NEGATIVE) Urine Nitrite NEGATIVE (NEGATIVE) Urine Bilirubin NEGATIVE (NEGATIVE) Urine Urobilinogen 0.2 (NORMAL) (NORMAL) E.U./dL Ur Leukocyte Esterase NEGATIVE (NEGATIVE) Urine RBC 0-5 (0-5) /HPF Urine WBC 0-3 (0-3) /HPF Ur Squamous Epith Cells MOD Squamous H (<= Few) Urine Bacteria Rare (None Seen) /HPF Urine Culture Comments NOT INDICATED Blood Type Cancelled Antibody Screen Cancelled Crossmatch IS Only See Detail 03/12/19 Range/Units 15:07 WBC (4.8-10.8) x10^3/uL RBC (4.70-6.10) 10^6/uL Hgb (14.0-18.0) g/dL Hct (42.0-52.0) % MCV (80.0-94.0) fL MCH (27.0-31.0) pg MCHC (32.0-36.0) g/dL RDW (12.0-15.0) % Plt Count (130-450) 10^3/uL MPV (7.4-11.4) fL Neut # (Auto) (1.5-6.6) 10^3/uL Lymph # (Auto) (1.5-3.5) 10^3/uL [place] # (Auto) (0.0-1.0) 10^3/uL Eos # (Auto) (0.0-0.7) 10^3/uL Baso # (Auto) (0.0-0.1) 10^3/uL Absolute Nucleated RBC x10^3/uL Band Neuts % (Manual) Abnorm Lymph % (Manual) Nucleated RBC % /100WBC Neutrophils # (Manual) Lymphocytes # (Manual) Monocytes # (Manual) Eosinophils # (Manual) Basophils # (Manual) Differential Comment WBC Morphology (NORMAL) Platelet Estimate (NORMAL) Platelet Morphology (NORMAL) RBC Morph Micro Appear (NORMAL) Sodium (135-145) mmol/L Potassium (3.5-5.0) mmol/L Chloride (101-111) mmol/L Carbon Dioxide (21-32) mmol/L Anion Gap (6-13) BUN (6-20) mg/dL Creatinine (0.6-1.2) mg/dL Estimated GFR (MDRD) (>89) Glucose (70-100) mg/dL POC Whole Bld Glucose (70 - 100) mg/dL Glycated Hemoglobin (4.6-6.2) % Estim Average Glucose (70-100) Calcium (8.5-10.3) mg/dL Urine Color Urine Clarity (CLEAR) Urine pH (5.0-7.5) PH Ur Specific [place] (1.002-1.030) Urine Protein (NEGATIVE) mg/dL Urine Glucose (UA) (NEGATIVE) mg/dL Urine Ketones (NEGATIVE) mg/dL Urine Occult Blood (NEGATIVE) Urine Nitrite (NEGATIVE) Urine Bilirubin (NEGATIVE) Urine Urobilinogen (NORMAL) E.U./dL Ur Leukocyte Esterase (NEGATIVE) Urine RBC (0-5) /HPF Urine WBC (0-3) /HPF Ur Squamous Epith Cells (<= Few) Urine Bacteria (None Seen) /HPF Urine Culture Comments Blood Type O POSITIVE Antibody Screen NEGATIVE Crossmatch IS Only ABX Reporting Has patient been on IV antibiotics over the past 48 hours?: No Sepsis Event Note (H) - Evaluation Current Stage of Sepsis: Ruled out Assessment/Plan - Problem List (1) GI bleeding Impression: 03/13 pt had colonoscopy today , but surgeon did not see bleed or bleeding site. But pt's HGB continue to drop from 8.6 to 7.8. pt had recent EGD and CT of abdomen, no bleed site was found. pt had black stool. continue H&H, occult stool test is pending pt may need be transferred for pillcam if continue GI bleeding and HGB drop pt had recent EGD and CT of abdomen which did not reveals bleeding site. pt continue to have black stool and today his HGB is 6.1 from 7.4 four days ago. consult with GI surgeon, plan to have colonoscopy transfusion of blood H&H Protonic Bid (2) Anemia Conclusion/Plan: 03/13 pt had iron study before, iron deficiency anemia, plus acute black stool pt had two unit of blood transfusion, now his HGB is 7.8 continue H&H continue iron pill Folate and B12<50 were very low at the previous study, pt is prescribed Folic acid and IM of B12, and PO of B12 today his HGB is 6.1, it appear from his acute GI blood loss. treat underline GI bleed, plan to have colonoscopy transfusion of 2 unit of blood H&H (3) Recurrent UTI (urinary tract infection) Conclusion/Plan: 03/13 new UA test his UTI is resolved. hold Cipro now pt has hx of recurrent UTI, today test indicate pt still had UTI and WBC is 13.7. pt was prescribed Cipro by his urologist, but he report he only took one pill now. pt is hemodynamic stable now. continue PO cipro followup UA culture and sensitivity study lab and vital monitor (4) Diabetes mellitus type 2, controlled Conclusion/Plan: 03/13 good controlled glucose level now. continue slide scale, hypoglycemia protocol pt took Metformin at home. Glucose is 258 today. pt will be NPO tomorrow for procedure start ACHS, check A1C, will start slide scale after procedure. (5) CKD (chronic kidney disease) stage 3, GFR 30-59 ml/min Conclusion/Plan: 03/13 improved, as pt's baseline, creatinine is 1.2 continue lab monitor Today his creatinine is 1.5, pt has hx of CKD stage 3 start on gently IVF of NS continue lab monitor (6) Essential hypertension Conclusion/Plan: BP is normatensive now. pt had Atelol at home, will reconcile continue vital monitor Qualifiers: GI bleed type/associated pathology: melena Qualified Code(s): K92.1 - Melena (4) Diabetes mellitus type 2, controlled Qualifiers: Diabetes mellitus penitentiary insulin use: without penitentiary use
[2019-03-13] MEDS: FERROUS SULFATE 325 MG TABLET PO SCH (16:53)
[2019-03-13] MEDS: INSULIN ASPART 300 UNIT/3 ML PEN SUBQ SCH ×2 (16:53→20:50)
[2019-03-13] MEDS: TAMSULOSIN 0.4 MG CAPSULE PO SCH (20:50)
[2019-03-13] MEDS: SODIUM CHLORIDE FLUSH 0.9% 10 ML SYRINGE IVP PRN (20:51)
[2019-03-13 20:53] LABS: HGB - HEMOGLOBIN 7.8 g/dL (14.0-18.0)
[2019-03-14] MEDS: SODIUM CHLORIDE FLUSH 0.9% 10 ML SYRINGE IVP SCH ×3 (05:23→16:37)
[2019-03-14 05:59] LABS: CALCIUM 7.9 mg/dL (8.5-10.3); CREATININE 1.2 mg/dL (0.6-1.2)
[2019-03-14 06:00] LABS: BASOPHILS % (AUTO) 0.5 %; EOSINOPHILS # (AUTO) 0.2 10^3/uL (0.0-0.7); EOSINOPHILS % (AUTO) 2.6 %; HGB - HEMOGLOBIN 7.1 g/dL (14.0-18.0); LYMPHOCYTES # (AUTO) 0.9 10^3/uL (1.5-3.5); LYMPHOCYTES % (AUTO) 11.2 %; MEAN CORPUSCULAR HEMOGLOBIN 28.6 pg (27.0-31.0); MEAN CORPUSCULAR VOLUME 86.5 fL (80.0-94.0); MEAN PLATELET VOLUME 7.1 fL (7.4-11.4); MONOCYTES # (AUTO) 0.7 10^3/uL (0.0-1.0); MONOCYTES % (AUTO) 8.9 %; NEUTROPHILS # (AUTO) 6.1 10^3/uL (1.5-6.6); NEUTROPHILS % (AUTO) 76.8 %; PLT - PLATELET COUNT 375 10^3/uL (130-450); RED CELL DISTRIBUTION WIDTH 21.2 % (12.0-15.0); WHITE BLOOD COUNT 7.9 x10^3/uL (4.8-10.8)
[2019-03-14 06:25] LABS: PLATELET ESTIMATE, MANUAL NORMAL (130-450,000) (NORMAL)
--- NOTE | 2019-03-14 07:48 | PROVIDER PROGRESS NOTE ---
Assessment/Plan - Problem List (1) GI bleeding Qualifiers: GI bleed type/associated pathology: melena Qualified Code(s): K92.1 - Melena Assessment/Plan: Hemodyanmically remains stable with no signs of recurrent bleeding; decreasing Hgb likely due to equilibration, hemodilution. Rec: OK for d/c from surgical standpoint; avoid NSAIDs, anticoagulants; arrange for urgent outpt GI consultation at the [facility] for capsule endoscopy or other evaluation as appropriate. If rebleeds and returns to our ER, consider transfer to facility with capability for mesenteric angiography/ tagged rbc scanning, enteroscopy, etc. Discussed with pt and RICK Naik, who agree with this plan. (2) Anemia Qualifiers: Anemia type: other cause Other causes of anemia: acute posthemorrhagic Qualified Code(s): D62 - Acute posthemorrhagic anemia - Current Meds Current Meds: Current Medications Generic Name Dose Route Start Last Admin Trade Name Freq PRN Reason Stop Dose Admin Atenolol 25 mg 03/12/19 21:00 03/13/19 20:50 Tenormin PO 25 mg BID JOSÉ MIGUEL Administration Ferrous Sulfate 325 mg 03/13/19 17:00 03/13/19 16:53 Feosol PO 325 mg BIDWM JOSÉ MIGUEL Administration Finasteride 5 mg 03/13/19 09:00 03/13/19 08:37 Proscar PO 5 mg DAILY JOSÉ MIGUEL Administration Folic Acid 1 mg 03/13/19 11:00 03/13/19 11:19 PO 1 mg DAILY JOSÉ MIGUEL Administration Insulin Aspart 1 - 9 unit 03/13/19 17:00 03/13/19 20:50 Novolog SUBQ 1 unit 0800,1200,1700,2100 JOSÉ MIGUEL Administration Protocol Pantoprazole Sodium 40 mg 03/12/19 21:00 03/13/19 20:50 Protonix IVP 40 mg BID JOSÉ MIGUEL Administration Sodium Chloride 10 ml 03/12/19 16:35 03/13/19 20:51 Normal Saline Flush 0.9% IVP 20 ml PRN PRN Administration NEEDED PER PROVIDER ORDERS Sodium Chloride 10 ml 03/12/19 17:00 03/14/19 05:23 Normal Saline Flush 0.9% IVP 10 ml 0100,0900,1700 JOSÉ MIGUEL Administration Tamsulosin HCl 0.4 mg 03/12/19 21:00 03/13/19 20:50 Flomax PO 0.4 mg QPM JOSÉ MIGUEL Administration - Lab Result Fish Bone Diagrams: 03/14/19 05:19 03/14/19 05:19 Subjective - Subjective Patient Reports: Resting Comfortably, No Complaints (no bm since colonoscopy yesterday.) Objective Vital Signs: Vital Signs - 24 hr 03/13/19 03/13/19 03/13/19 08:32 12:02 12:45 Temperature 36.7 C 36.9 C 37.0 C Heart Rate Heart Rate [ 79 74 68 Brachial] Respiratory 18 18 14 Rate Blood Pressure 123/56 L 125/59 L 124/94 H [Right Brachial artery] O2 Saturation 100 99 98 03/13/19 03/13/19 03/13/19 16:01 19:10 20:10 Temperature 36.6 C 36.8 C Heart Rate 82 Heart Rate [ 83 75 Brachial] Respiratory 24 16 20 Rate Blood Pressure 130/53 L 130/54 L [Right Brachial artery] O2 Saturation 100 100 03/13/19 03/14/19 23:30 07:35 Temperature 36.7 C 36.6 C Heart Rate Heart Rate [ 73 79 Brachial] Respiratory 16 16 Rate Blood Pressure 114/49 L 127/53 L [Right Brachial artery] O2 Saturation 99 97 Oxygen O2 Source Room air I&O (Last 24 Hrs): Intake and Output Totals x24h 03/12/19 03/13/19 03/14/19 23:59 23:59 23:59 Intake Total 2425 3948.75 150 Output Total 250 1806 300 Balance 2175 2142.75 -150 General: Alert, Oriented x3, Cooperative Abdomen: Soft, No tenderness, No hepatospenomegaly, No masses - Results Results: Laboratory Results WBC 7.9 x10^3/uL (4.8-10.8) 03/14/19 05:19 RBC 2.50 10^6/uL (4.70-6.10) L 03/14/19 05:19 Hgb 7.1 g/dL (14.0-18.0) L 03/14/19 05:19 Hct 21.6 % (42.0-52.0) L 03/14/19 05:19 MCV 86.5 fL (80.0-94.0) 03/14/19 05:19 MCH 28.6 pg (27.0-31.0) 03/14/19 05:19 MCHC 33.0 g/dL (32.0-36.0) 03/14/19 05:19 RDW 21.2 % (12.0-15.0) H 03/14/19 05:19 Plt Count 375 10^3/uL (130-450) 03/14/19 05:19 MPV 7.1 fL (7.4-11.4) L 03/14/19 05:19 Neut # (Auto) 6.1 10^3/uL (1.5-6.6) 03/14/19 05:19 Lymph # (Auto) 0.9 10^3/uL (1.5-3.5) L 03/14/19 05:19 [place] # (Auto) 0.7 10^3/uL (0.0-1.0) 03/14/19 05:19 Eos # (Auto) 0.2 10^3/uL (0.0-0.7) 03/14/19 05:19 Baso # (Auto) 0.0 10^3/uL (0.0-0.1) 03/14/19 05:19 Absolute Nucleated RBC 0.00 x10^3/uL 03/14/19 05:19 Band Neuts % (Manual) Not Reportable 03/13/19 05:27 Abnorm Lymph % (Manual) Not Reportable 03/13/19 05:27 Nucleated RBC % 0.0 /100WBC 03/14/19 05:19 Neutrophils # (Manual) Not Reportable 03/13/19 05:27 Lymphocytes # (Manual) Not Reportable 03/13/19 05:27 Monocytes # (Manual) Not Reportable 03/13/19 05:27 Eosinophils # (Manual) Not Reportable 03/13/19 05:27 Basophils # (Manual) Not Reportable 03/13/19 05:27 Differential Comment MANUAL=AUTO DIFF 03/13/19 05:27 Manual Slide Review Indicated 03/14/19 05:19 WBC Morphology NORMAL APPEARANCE (NORMAL) 03/13/19 05:27 Platelet Estimate NORMAL (130-450,000) (NORMAL) 03/14/19 05:19 Platelet Morphology NORMAL APPEARANCE (NORMAL) 03/13/19 05:27 RBC Morph Micro Appear 2+ ANISOCYTOSIS (NORMAL) 1+ POLYCHROMASIA (NORMAL) 2+ HYPOCHROMASIA (NORMAL) 1+ OVALOCYTES (NORMAL) 03/13/19 05:27 RBC Morph Micro Appear 2+ ANISOCYTOSIS (NORMAL) 1+ POLYCHROMASIA (NORMAL) 2+ HYPOCHROMASIA (NORMAL) 1+ OVALOCYTES (NORMAL) 03/13/19 05:27 RBC Morph Micro Appear 2+ ANISOCYTOSIS (NORMAL) 1+ POLYCHROMASIA (NORMAL) 2+ HYPOCHROMASIA (NORMAL) 1+ OVALOCYTES (NORMAL) 03/13/19 05:27 RBC Morph Micro Appear 2+ ANISOCYTOSIS (NORMAL) 1+ POLYCHROMASIA (NORMAL) 2+ HYPOCHROMASIA (NORMAL) 1+ OVALOCYTES (NORMAL) 03/13/19 05:27 RBC Morph Micro Appear 1+ ANISOCYTOSIS (NORMAL) 1+ HYPOCHROMASIA (NORMAL) 1+ POLYCHROMASIA (NORMAL) 1+ OVALOCYTES (NORMAL) 03/14/19 05:19 RBC Morph Micro Appear 1+ ANISOCYTOSIS (NORMAL) 1+ HYPOCHROMASIA (NORMAL) 1+ POLYCHROMASIA (NORMAL) 1+ OVALOCYTES (NORMAL) 03/14/19 05:19 RBC Morph Micro Appear 1+ ANISOCYTOSIS (NORMAL) 1+ HYPOCHROMASIA (NORMAL) 1+ POLYCHROMASIA (NORMAL) 1+ OVALOCYTES (NORMAL) 03/14/19 05:19 RBC Morph Micro Appear 1+ ANISOCYTOSIS (NORMAL) 1+ HYPOCHROMASIA (NORMAL) 1+ POLYCHROMASIA (NORMAL) 1+ OVALOCYTES (NORMAL) 03/14/19 05:19 Sodium 140 mmol/L (135-145) 03/14/19 05:19 Potassium 4.2 mmol/L (3.5-5.0) 03/14/19 05:19 Chloride 109 mmol/L (101-111) 03/14/19 05:19 Carbon Dioxide 24 mmol/L (21-32) 03/14/19 05:19 Anion Gap 7.0 (6-13) 03/14/19 05:19 BUN 18 mg/dL (6-20) 03/14/19 05:19 Creatinine 1.2 mg/dL (0.6-1.2) 03/14/19 05:19 Estimated GFR (MDRD) 59 (>89) L 03/14/19 05:19 Glucose 144 mg/dL (70-100) H 03/14/19 05:19 POC Whole Bld Glucose 149 mg/dL (70 - 100) H 03/14/19 07:28 Glycated Hemoglobin 6.4 % (4.6-6.2) H 03/13/19 05:27 Estim Average Glucose 137 (70-100) H 03/13/19 05:27 Calcium 7.9 mg/dL (8.5-10.3) L 03/14/19 05:19 Magnesium 1.8 mg/dL (1.7-2.8) 03/12/19 14:25 Total Bilirubin 0.4 mg/dL (0.2-1.0) 03/12/19 14:25 AST 19 IU/L (10-42) 03/12/19 14:25 ALT 10 IU/L (10-60) 03/12/19 14:25 Alkaline Phosphatase 63 IU/L (42-121) 03/12/19 14:25 Troponin I < 0.04 ng/mL (<0.49) 03/12/19 14:25 B-Natriuretic Peptide 244 pg/mL (5-100) H 03/12/19 14:25 Total Protein 6.0 g/dL (6.7-8.2) L 03/12/19 14:25 Albumin 2.8 g/dL (3.2-5.5) L 03/12/19 14:25 Globulin 3.2 g/dL (2.1-4.2) 03/12/19 14:25 Albumin/Globulin Ratio 0.9 (1.0-2.2) L 03/12/19 14:25 Lipase 31 U/L (22-51) 03/12/19 14:25 Urine Color YELLOW 03/12/19 18:56 Urine Clarity HAZY (CLEAR) 03/12/19 18:56 Urine pH 5.0 PH (5.0-7.5) 03/12/19 18:56 Ur Specific [place] 1.015 (1.002-1.030) 03/12/19 18:56 Urine Protein NEGATIVE mg/dL (NEGATIVE) 03/12/19 18:56 Urine Glucose (UA) 100 mg/dL (NEGATIVE) H 03/12/19 18:56 Urine Ketones TRACE mg/dL (NEGATIVE) 03/12/19 18:56 Urine Occult Blood NEGATIVE (NEGATIVE) 03/12/19 18:56 Urine Nitrite NEGATIVE (NEGATIVE) 03/12/19 18:56 Urine Bilirubin NEGATIVE (NEGATIVE) 03/12/19 18:56 Urine Urobilinogen 0.2 (NORMAL) E.U./dL (NORMAL) 03/12/19 18:56 Ur Leukocyte Esterase NEGATIVE (NEGATIVE) 03/12/19 18:56 Urine RBC 0-5 /HPF (0-5) 03/12/19 18:56 Urine WBC 0-3 /HPF (0-3) 03/12/19 18:56 Ur Squamous Epith Cells MOD Squamous (<= Few) H 03/12/19 18:56 Urine Bacteria Rare /HPF (None Seen) 03/12/19 18:56 Urine Culture Comments NOT INDICATED 03/12/19 18:56 Blood Type O POSITIVE 03/12/19 15:07 Antibody Screen NEGATIVE 03/12/19 15:07 Crossmatch IS Only See Detail 03/12/19 15:07 - Procedures Procedures: Procedures INSPECTION OF UPPER INTESTINAL TRACT, ENDO (03/07/19) Sepsis Event Note (H) - Evaluation Current Stage of Sepsis: Ruled out ABX Reporting Has patient been on IV antibiotics over the past 48 hours?: No
[2019-03-14] MEDS: FINASTERIDE 5 MG TABLET PO SCH (08:13)
[2019-03-14] MEDS: CYANOCOBALAMIN 500 MCG TABLET PO SCH (08:13)
[2019-03-14] MEDS: SODIUM CHLORIDE FLUSH 0.9% 10 ML SYRINGE IVP PRN ×2 (08:14→21:23)
[2019-03-14] MEDS: PANTOPRAZOLE 40 MG VIAL IVP SCH ×2 (08:14→21:23)
[2019-03-14] MEDS: INSULIN ASPART 300 UNIT/3 ML PEN SUBQ SCH ×4 (08:14→21:24)
[2019-03-14] MEDS: ATENOLOL 25 MG TABLET PO SCH ×2 (08:14→21:23)
[2019-03-14] MEDS: FOLIC ACID 1 MG TABLET PO SCH (08:14)
[2019-03-14] MEDS: FERROUS SULFATE 325 MG TABLET PO SCH ×2 (08:14→17:37)
[2019-03-14] MEDS ORDERED: SODIUM CHLORIDE 0.9% 500 ML IV ONE (09:12)
--- NOTE | 2019-03-14 11:52 | PROVIDER PROGRESS NOTE ---
Subjective - Prog Note Date Prog Note Date: 03/14/19 - Subjective Pt reports feeling: No change Subjective: pt's HGB is down to 7.1 again. one unit of blood is ordered for pt. pt is hemodynamic stable, pt did not have chest pain, shortness of breath. pt still did not have a bowel movement yet. Effort is made to call [facility] for urgent care to be arranged for pt. [facility] cooperator Yuliet told me, firstly [facility] [place] can do the procedure called pillLEONA, she told me the hospital did not have bed available today, asked me to call [facility]. I did call [facility]. but [facility] called me back they can not do the procedure for pt. Yuliet called me back, she told [facility] may have a bed for pt tomorrow. Pt's sister come to hospital and want to have a confirmed information to transfer pt to [facility] on tomorrow. I called [facility] again, she told me she could not guarantee [facility] has a bed for pt on tomorrow, but she will do the best to hold a bed for pt. I told ab hughese information to pt's sister Sabi. Current Medications - Current Medications Current Medications: Active Medications Acetaminophen (Tylenol) 650 mg PO Q4HR PRN PRN Reason: Pain 1 to 4 Albuterol () 2.5 mg INH RTQ4H PRN PRN Reason: Wheezing Albuterol/Ipratropium (Duoneb) 3 ml INH Q4HR PRN PRN Reason: Wheezing Atenolol (Tenormin) 25 mg PO BID [facility] Last Admin: 03/14/19 08:14 Dose: 25 mg Cyanocobalamin (Vitamin B-12) 500 mcg PO DAILY [facility] Last Admin: 03/14/19 08:13 Dose: 500 mcg Ferrous Sulfate (Feosol) 325 mg PO BIDWM [facility] Last Admin: 03/14/19 08:14 Dose: 325 mg Finasteride (Proscar) 5 mg PO DAILY [facility] Last Admin: 03/14/19 08:13 Dose: 5 mg Folic Acid () 1 mg PO DAILY [facility] Last Admin: 03/14/19 08:14 Dose: 1 mg Insulin Aspart (Novolog) 1 - 9 unit SUBQ 0800,1200,1700,2100 [facility]; Protocol Last Admin: 03/14/19 11:16 Dose: 1 unit Ondansetron HCl (Zofran Inj) 4 mg IVP Q6HR PRN PRN Reason: Nausea / Vomiting Pantoprazole Sodium (Protonix) 40 mg IVP BID [facility] Last Admin: 03/14/19 08:14 Dose: 40 mg Sodium Chloride (Normal Saline Flush 0.9%) 10 ml IVP PRN PRN PRN Reason: NEEDED PER PROVIDER ORDERS Last Admin: 03/14/19 08:14 Dose: 10 ml Sodium Chloride (Normal Saline Flush 0.9%) 10 ml IVP 0100,0900,1700 [facility] Last Admin: 03/14/19 08:14 Dose: 10 ml Tamsulosin HCl (Flomax) 0.4 mg PO QPM [facility] Last Admin: 03/13/19 20:50 Dose: 0.4 mg Zolpidem Tartrate (Ambien) 5 mg PO QPM PRN PRN Reason: Insomnia Atenolol 25 mg PO BID 03/07/19 Cholecalciferol (Vitamin D3) [Vitamin D3] 2,000 unit PO DAILY 03/07/19 Ciprofloxacin HCl 250 mg PO [id number] 03/07/19 Finasteride 5 mg PO DAILY 03/07/19 Metformin HCl [Metformin HCl ER] 1,000 mg PO Q12H 03/07/19 Pravastatin Sodium 10 mg PO DAILY 03/07/19 Tamsulosin HCl [Flomax] 0.4 mg PO QPM 03/07/19 Objective - Vital Signs/Intake & Output Reviewed Vital Signs: Yes Vital Signs: Vital Signs x48h Temp Pulse Pulse Resp BP BP Pulse Ox 03/14/19 09:53 36.8 C 76 18 127/47 L 03/14/19 09:43 36.8 C 77 18 124/56 L 03/14/19 09:38 36.7 C 80 16 137/50 H 03/14/19 07:35 36.6 C 79 16 127/53 L 97 Intake & Output: Intake & Output 03/11/19 03/12/19 03/13/19 03/14/19 23:59 23:59 23:59 23:59 Intake Total 2425 3948.75 350 Output Total 250 1806 900 Balance 2175 2142.75 -550 - Objective General Appearance: positive: No acute distress, Alert. negative: Lethargic Eyes Bilateral: positive: Normal inspection, PERRL, No lid inflammation, Conjunctivae nml ENT: positive: ENT inspection nml, Pharynx nml, No signs of dehydration. negative: Purulent nasal drainage, Pharyngeal erythema, Oral lesions Neck: positive: Nml inspection, Thyroid nml, No JVD, Trachea midline. negative: Thyromegaly, Lymphadenopathy (R), Lymphadenopathy (L), Stiff neck, Swelling/bruising, Tracheal deviation Respiratory: positive: Chest non-tender, No respiratory distress, Breath sounds nml. negative: Wheezes, Rales, Rhonchi Cardiovascular: positive: Regular rate & rhythm, No murmur, No gallop. negative: Irregularly irregular, Extrasystoles, Tachycardia, Bradycardia, JVD present, Systolic murmur, Diastolic murmur Peripheral Pulses: 2+ Radial (R), 2+ Radial (L), 2+ Dorsalis pedis (R), 2+ Dorsalis pedis (L) Abdomen: positive: Non-tender, No organomegaly, Nml bowel sounds, No distention. negative: Tenderness, Guarding, Rebound Back: positive: Nml inspection. negative: CVA tenderness (R), CVA tenderness (L) Skin: positive: Color nml, No rash, Warm, Dry. negative: Cyanosis, Diaphoresis, Pallor Extremities: positive: Non-tender, Full ROM, Nml appearance. negative: Calf tenderness, Joint swelling, Brittany's sign/cords Neurologic/Psychiatric: positive: Oriented x3, Motor nml, Sensation nml, Mood/affect nml. negative: Weakness, Sensory loss, Facial droop, Slurred/abnml speech, Depressed mood/affect - Lab Results Fish Bones: 03/14/19 05:19 03/14/19 05:19 Other Labs: Lab Results x24hrs 03/14/19 03/14/19 03/14/19 Range/Units 11:05 07:28 05:19 WBC (4.8-10.8) x10^3/uL RBC (4.70-6.10) 10^6/uL Hgb (14.0-18.0) g/dL Hct (42.0-52.0) % MCV (80.0-94.0) fL MCH (27.0-31.0) pg MCHC (32.0-36.0) g/dL RDW (12.0-15.0) % Plt Count (130-450) 10^3/uL MPV (7.4-11.4) fL Neut # (Auto) (1.5-6.6) 10^3/uL Lymph # (Auto) (1.5-3.5) 10^3/uL Karnes # (Auto) (0.0-1.0) 10^3/uL Eos # (Auto) (0.0-0.7) 10^3/uL Baso # (Auto) (0.0-0.1) 10^3/uL Absolute Nucleated RBC x10^3/uL Nucleated RBC % /100WBC Manual Slide Review Platelet Estimate (NORMAL) RBC Morph Micro Appear (NORMAL) Sodium 140 (135-145) mmol/L Potassium 4.2 (3.5-5.0) mmol/L Chloride 109 (101-111) mmol/L Carbon Dioxide 24 (21-32) mmol/L Anion Gap 7.0 (6-13) BUN 18 (6-20) mg/dL Creatinine 1.2 (0.6-1.2) mg/dL Estimated GFR (MDRD) 59 L (>89) Glucose 144 H (70-100) mg/dL POC Whole Bld Glucose 174 H 149 H (70 - 100) mg/dL Calcium 7.9 L (8.5-10.3) mg/dL Blood Type Antibody Screen Crossmatch IS Only 03/14/19 03/13/19 03/13/19 Range/Units 05:19 20:46 14:10 WBC 7.9 (4.8-10.8) x10^3/uL RBC 2.50 L (4.70-6.10) 10^6/uL Hgb 7.1 L 7.8 L 7.8 L (14.0-18.0) g/dL Hct 21.6 L 23.7 L 23.4 L (42.0-52.0) % MCV 86.5 (80.0-94.0) fL MCH 28.6 (27.0-31.0) pg MCHC 33.0 (32.0-36.0) g/dL RDW 21.2 H (12.0-15.0) % Plt Count 375 (130-450) 10^3/uL MPV 7.1 L (7.4-11.4) fL Neut # (Auto) 6.1 (1.5-6.6) 10^3/uL Lymph # (Auto) 0.9 L (1.5-3.5) 10^3/uL Karnes # (Auto) 0.7 (0.0-1.0) 10^3/uL Eos # (Auto) 0.2 (0.0-0.7) 10^3/uL Baso # (Auto) 0.0 (0.0-0.1) 10^3/uL Absolute Nucleated RBC 0.00 x10^3/uL Nucleated RBC % 0.0 /100WBC Manual Slide Review Indicated Platelet Estimate NORMAL (130-450,000) (NORMAL) RBC Morph Micro Appear 1+ OVALOCYTES (NORMAL) Sodium (135-145) mmol/L Potassium (3.5-5.0) mmol/L Chloride (101-111) mmol/L Carbon Dioxide (21-32) mmol/L Anion Gap (6-13) BUN (6-20) mg/dL Creatinine (0.6-1.2) mg/dL Estimated GFR (MDRD) (>89) Glucose (70-100) mg/dL POC Whole Bld Glucose (70 - 100) mg/dL Calcium (8.5-10.3) mg/dL Blood Type Antibody Screen Crossmatch IS Only 03/12/19 Range/Units 15:07 WBC (4.8-10.8) x10^3/uL RBC (4.70-6.10) 10^6/uL Hgb (14.0-18.0) g/dL Hct (42.0-52.0) % MCV (80.0-94.0) fL MCH (27.0-31.0) pg MCHC (32.0-36.0) g/dL RDW (12.0-15.0) % Plt Count (130-450) 10^3/uL MPV (7.4-11.4) fL Neut # (Auto) (1.5-6.6) 10^3/uL Lymph # (Auto) (1.5-3.5) 10^3/uL Karnes # (Auto) (0.0-1.0) 10^3/uL Eos # (Auto) (0.0-0.7) 10^3/uL Baso # (Auto) (0.0-0.1) 10^3/uL Absolute Nucleated RBC x10^3/uL Nucleated RBC % /100WBC Manual Slide Review Platelet Estimate (NORMAL) RBC Morph Micro Appear (NORMAL) Sodium (135-145) mmol/L Potassium (3.5-5.0) mmol/L Chloride (101-111) mmol/L Carbon Dioxide (21-32) mmol/L Anion Gap (6-13) BUN (6-20) mg/dL Creatinine (0.6-1.2) mg/dL Estimated GFR (MDRD) (>89) Glucose (70-100) mg/dL POC Whole Bld Glucose (70 - 100) mg/dL Calcium (8.5-10.3) mg/dL Blood Type Cancelled Antibody Screen Cancelled Crossmatch IS Only See Detail ABX Reporting Has patient been on IV antibiotics over the past 48 hours?: No Sepsis Event Note (H) - Evaluation Current Stage of Sepsis: Ruled out Assessment/Plan - Problem List (1) GI bleeding Impression: 03/14 pt's HGB is down to 7.1 today morning. one unit of blood is ordered for pt. pt is hemodynamic stable, pt did not have chest pain, shortness of breath. pt still has no bowel movement yet. plan d/c pt to [facility] in [place] on tomorrow for high level care. 03/13 pt had colonoscopy today , but surgeon did not see bleed or bleeding site. But pt's HGB continue to drop from 8.6 to 7.8. pt had recent EGD and CT of abdomen, no bleed site was found. pt had black stool. continue H&H, occult stool test is pending pt may need be transferred for pillcam if continue GI bleeding and HGB drop pt had recent EGD and CT of abdomen which did not reveals bleeding site. pt continue to have black stool and today his HGB is 6.1 from 7.4 four days ago. consult with GI surgeon, plan to have colonoscopy transfusion of blood H&H Protonic Bid (2) iron deficiency Anemia Conclusion/Plan: 03/14 HGB is 7.1, order one unit of blood to pt continue H&H continue Iron supplement 03/13 pt had iron study before, iron deficiency anemia, plus acute black stool pt had two unit of blood transfusion, now his HGB is 7.8 continue H&H continue iron pill Folate and B12<50 were very low at the previous study, pt is prescribed Folic acid and IM of B12, and PO of B12 today his HGB is 6.1, it appear from his acute GI blood loss. treat underline GI bleed, plan to have colonoscopy transfusion of 2 unit of blood H&H (3) Recurrent UTI (urinary tract infection) Conclusion/Plan: 03/13 new UA test his UTI is resolved. hold Cipro now pt has hx of recurrent UTI, today test indicate pt still had UTI and WBC is 13.7. pt was prescribed Cipro by his urologist, but he report he only took one pill now. pt is hemodynamic stable now. continue PO cipro followup UA culture and sensitivity study lab and vital monitor (4) Diabetes mellitus type 2, controlled Conclusion/Plan: 03/13 good controlled glucose level now. continue slide scale, hypoglycemia protocol pt took Metformin at home. Glucose is 258 today. pt will be NPO tomorrow for p rocedure start ACHS, check A1C, will start slide scale after procedure. (5) CKD (chronic kidney disease) stage 3, GFR 30-59 ml/min Conclusion/Plan: 03/13 improved, as pt's baseline, creatinine is 1.2 continue lab monitor Today his creatinine is 1.5, pt has hx of CKD stage 3 start on gently IVF of NS continue lab monitor (6) Essential hypertension Conclusion/Plan: BP is normatensive now. pt had Atelol at home, will reconcile continue vital monitor Qualifiers: GI bleed type/associated pathology: melena Qualified Code(s): K92.1 - Melena (4) Diabetes mellitus type 2, controlled Qualifiers: Diabetes mellitus long-term insulin use: without long-term use
[2019-03-14] MEDS: TAMSULOSIN 0.4 MG CAPSULE PO SCH (21:23)
[2019-03-14 22:12] LABS: HGB - HEMOGLOBIN 8.6 g/dL (14.0-18.0)
[2019-03-15] MEDS: SODIUM CHLORIDE FLUSH 0.9% 10 ML SYRINGE IVP SCH ×3 (00:13→08:58)
[2019-03-15 06:32] LABS: BASOPHILS % (AUTO) 0.5 %; EOSINOPHILS # (AUTO) 0.1 10^3/uL (0.0-0.7); EOSINOPHILS % (AUTO) 2.2 %; HGB - HEMOGLOBIN 8.6 g/dL (14.0-18.0); LYMPHOCYTES # (AUTO) 0.7 10^3/uL (1.5-3.5); MEAN CORPUSCULAR HEMOGLOBIN 28.5 pg (27.0-31.0); MEAN CORPUSCULAR HGB CONC 33.2 g/dL (32.0-36.0); MEAN CORPUSCULAR VOLUME 85.7 fL (80.0-94.0); MONOCYTES # (AUTO) 0.6 10^3/uL (0.0-1.0); MONOCYTES % (AUTO) 11.7 %; NEUTROPHILS % (AUTO) 72.6 %; PLT - PLATELET COUNT 361 10^3/uL (130-450); RED BLOOD COUNT 3.03 10^6/uL (4.70-6.10); RED CELL DISTRIBUTION WIDTH 20.1 % (12.0-15.0); WHITE BLOOD COUNT 5.6 x10^3/uL (4.8-10.8)
[2019-03-15 06:40] LABS: CALCIUM 8.4 mg/dL (8.5-10.3); CREATININE 1.1 mg/dL (0.6-1.2)
[2019-03-15 07:04] LABS: PLATELET ESTIMATE, MANUAL NORMAL (130-450,000) (NORMAL)
[2019-03-15] MEDS: INSULIN ASPART 300 UNIT/3 ML PEN SUBQ SCH ×2 (08:38→12:18)
[2019-03-15] MEDS: FERROUS SULFATE 325 MG TABLET PO SCH (08:40)
[2019-03-15] MEDS: CYANOCOBALAMIN 500 MCG TABLET PO SCH (08:41)
[2019-03-15] MEDS: FOLIC ACID 1 MG TABLET PO SCH (08:41)
[2019-03-15] MEDS: ATENOLOL 25 MG TABLET PO SCH (08:43)
[2019-03-15] MEDS: FINASTERIDE 5 MG TABLET PO SCH (08:43)
[2019-03-15] MEDS: PANTOPRAZOLE 40 MG VIAL IVP SCH (08:48)
[2019-03-15] MEDS: SODIUM CHLORIDE FLUSH 0.9% 10 ML SYRINGE IVP PRN (08:49)
--- NOTE | 2019-03-15 11:45 | Discharge Plan ---
Discharge Plan Disposition: Home, Self Care Condition: Poor Prescriptions: Cyanocobalamin (Vitamin B-12) [Vitamin B-12] 1,000 mcg PO DAILY #10 capsule Folic Acid 1 mg PO DAILY #10 tablet Diet: Diabetic Activity Restrictions: Activity as Tolerated Shower Restrictions: No (fall precaution, caregiver closely monitor) Instruction Topics: Vitamin B12 oral, Bleeding Gastrointestinal, Supplements Folic Acid Folate Additional Instructions or Follow Up instructions: you may followup your PCP in one week, may have CBC blood test in your PCP office on Monday03/18/19, as you report your PCP office can do blood work, 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 Your EGD and Colonoscopy studies in hospital did not reveals bleed site. Your HGB is stable, and increase now. You have no bowel movement yet in the hospital. Should your symptoms return or worsen, you may present ER, call 911 or PCP for help. No Smoking: If you smoke, Please STOP! Call for help. Follow-up with: TIMOTHY VARMA MD [Primary Care Provider] -
--- NOTE | 2019-03-15 12:24 | DISCHARGE SUMMARY ---
"Discharge Summary Discharge Date: 03/15/19 Discharging Provider: GUNDERSON Primary Care Provider: Dr Ly Condition at Discharge: Poor Discharge Disposition: Home, Self Care Discharge Facility Name: home - DIAGNOSES Admission Diagnoses: 1) GI bleeding (2) Anemia (3) Recurrent UTI (urinary tract infection) (4) Diabetes mellitus type 2, controlled (5) CKD (chronic kidney disease) stage 3, GFR 30-59 ml/min (6) Essential hypertension Discharge Diagnoses with Status of Each Condition: 1) GI bleeding pt's HGB increase and stable. pt has no bowel movement at hospital. pt had colonoscopy done at this admission, which did not reveals bleed site. In detail, please reveal Dr. Antonio Carias's colonoscopy report. Dr. 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 (2) Anemia pt's HGB is 9.5 now, and stable. pt had three unit of blood transfusion at hospital. pt is prescribed B12 and folic acid for his anemia (3) Recurrent UTI (urinary tract infection) stable, continue home meds, followup pt's urologist (4) Diabetes mellitus type 2, controlled stable, continue home regimen, followup PCP (5) CKD (chronic kidney disease) stage 3, GFR 30-59 ml/min stable and improved, followup PCP (6) Essential hypertension stable, followup PCP - HPI History of Present Illness: Mr. Moon is a 79-year old male with a past medical history significant for non-insulin dependent diabetes mellitus type 2, essential hypertension, hyperlipidemia, and status post of left inguinal hernia repair in the year 1999, malaria while he was in [place] in the , bulbar urethral stricture disease, recurrent UTI, urinary retention, nocturia, status post urethrotomy, long standing tobacco dependence in which he quit 5 years ago, who present ER complain of black stool. Pt report he was discharged on last Monday in this hospital. he had EGD and CT of abdomen, both did not reveal bleed site. He report he continued to have black stools which started about 10days ago, poor appetite that seems to come and go, increased dizziness, lethargy and some shortness of breath with ambulation. He denies fever, chill, chest pain, nausea, vomiting, abdominal pain. He denies taking any blood thinner or NASDs. His Vital signs was unremarkable and hemodynamic stable at ER. Upon examination, he appears pale with poor capillary refill. He can speak in full sentences, and he is not dizzy while lying in bed. Lab test in ER, it reveals his HGB is 6.1 from 7.4 on 03/09/19, elevated WBC is 13.7 and creatinine to 1.5. A general surgery consult has been made by ER. Pt is planned to have colonoscopy on next day. - CONSULTS | PROCEDURES Consultations: Dr. Antonio Carias Procedures: Colonoscopy - HOSPITAL COURSE Hospital Course: pt's HGB was 6.1 at admission. pt had two unit blood transfusion. then pt had colonoscopy done by Dr. Carias,in which per report he did not see acute bleed site and acute bleed. but pt's HGB decrease again after colonoscopy. Because pt had EGD, CT of abdomen which was found unremarkable four days ago on this admission, at this time pt's colonoscopy is unremarkable as well, I called [facility], [facility], all [facility] denies to take pt. pt had another one unit of blood transfusion. Then pt's HGB is stable, finally pt's HGB increase to 9.[address] 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 - ALLERGIES Allergies/Adverse Reactions: Allergies Allergy/AdvReac Type Severity Reaction Status Date / Time Penicillins Allergy Unknown Verified 03/12/19 14:06 - MEDICATIONS Home Medications: Ambulatory Orders Medication Instructions Recorded Confirmed Atenolol 25 mg PO BID 03/07/19 03/13/19 Cholecalciferol (Vitamin D3) 2,000 unit PO DAILY 03/07/19 03/13/19 [Vitamin D3] Ciprofloxacin HCl 250 mg PO [id number] 03/07/19 03/13/19 Finasteride 5 mg PO DAILY 03/07/19 03/13/19 Metformin HCl [Metformin HCl ER] 1,000 mg PO Q12H 03/07/19 03/13/19 Pravastatin Sodium 10 mg PO DAILY 03/07/19 03/13/19 Tamsulosin HCl [Flomax] 0.4 mg PO QPM 03/07/19 03/13/19 Ferrous Gluconate 240 mg PO BID #60 tablet 03/09/19 03/13/19 Magnesium Oxide [Mag Ox] 400 mg PO BIDWM #60 tablet 03/09/19 03/13/19 Methenamine Hippurate [Hiprex] 1 gm PO BID #60 tablet 03/09/19 03/13/19 Cyanocobalamin (Vitamin B-12) 1,000 mcg PO DAILY #10 capsule 03/15/19 [Vitamin B-12] Folic Acid 1 mg PO DAILY #10 tablet 03/15/19 - PHYSICAL EXAM AT DISCHARGE General Appearance: positive: No acute distress, Alert. negative: Lethargic Eyes Bilateral: positive: Normal inspection, PERRL, No lid inflammation, Conjunctivae nml ENT: positive: ENT inspection nml, Pharynx nml, No signs of dehydration. negative: Purulent nasal drainage, Pharyngeal erythema, Oral lesions Neck: positive: Nml inspection, Thyroid nml, No JVD, Trachea midline. negative: Thyromegaly, Lymphadenopathy (R), Lymphadenopathy (L), Stiff neck, Swelling/bruising, Tracheal deviation Respiratory: positive: Chest non-tender, No respiratory distress, Breath sounds nml. negative: Wheezes, Rales, Rhonchi Cardiovascular: positive: Regular rate & rhythm, No murmur, No gallop. nega tive: Irregularly irregular, Extrasystoles, Tachycardia, Bradycardia, JVD present, Systolic murmur, Diastolic murmur Peripheral Pulses: positive: 2+ Abdomen: positive: Non-tender, No organomegaly, Nml bowel sounds, No distention. negative: Tenderness, Guarding, Rebound Back: positive: Nml inspection. negative: CVA tenderness (R), CVA tenderness (L) Skin: positive: Color nml, No rash, Warm, Dry. negative: Cyanosis, Diaphoresis, Pallor Extremities: positive: Non-tender, Full ROM, Nml appearance. negative: Calf tenderness, Joint swelling, Brittany's sign/cords Neurologic/Psychiatric: positive: Oriented x3, Sensation nml, Mood/affect nml. 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 Your EGD and Colonoscopy studies in hospital did not reveals bleed site. Your HGB is stable, and increase now. You have no bowel movement yet in the hospital. Should your symptoms return or worsen, you may present ER, call 911 or PCP for help. - TIME SPENT Time Spent in Discharge (Minutes): 60"
[2019-03-15 13:40] VITALS: BP 148/65
== END 2019-03-15 13:55 | disposition home or self-care (01) | DRG 378 ==
LOC: ED 13:47 → MS2 16:35 → OBSVTOIN 03-13 14:18
PROVIDERS: ADMIT Nurse Practitioner Gerontology; ATTEND Nurse Practitioner Gerontology
PROC: 0DBH8ZZ Excision of Cecum, Via Natural or Artificial Opening Endoscopic (ICD-10-PCS; 2019-03-12)
PROC: 0DBN8ZZ Excision of Sigmoid Colon, Via Natural or Artificial Opening Endoscopic (ICD-10-PCS; 2019-03-12)
PROC: 0DBP8ZZ Excision of Rectum, Via Natural or Artificial Opening Endoscopic (ICD-10-PCS; 2019-03-12)
PROC: 30233N1 Transfusion of Nonautologous Red Blood Cells into Peripheral Vein, Percutaneous Approach (ICD-10-PCS; principal; 2019-03-14)
DX: K92.2 Gastrointestinal hemorrhage, unspecified (principal); D62 Acute posthemorrhagic anemia; I12.9 Hypertensive chronic kidney disease with stage 1 through stage 4 chronic kidney disease, or unspecified chronic kidney disease; E11.22 Type 2 diabetes mellitus with diabetic chronic kidney disease; N18.3 Chronic kidney disease, stage 3 (moderate); J43.9 Emphysema, unspecified; E78.5 Hyperlipidemia, unspecified; D12.0 Benign neoplasm of cecum; D12.8 Benign neoplasm of rectum; K63.5 Polyp of colon; K57.30 Diverticulosis of large intestine without perforation or abscess without bleeding; R33.9 Retention of urine, unspecified; R35.1 Nocturia; N28.9 Disorder of kidney and ureter, unspecified; R55 Syncope and collapse; J32.9 Chronic sinusitis, unspecified; H54.7 Unspecified visual loss; Z79.84 Long term (current) use of oral hypoglycemic drugs; Z79.899 Other long term (current) drug therapy; Z87.440 Personal history of urinary (tract) infections; Z87.891 Personal history of nicotine dependence; Z86.13 Personal history of malaria; Z87.448 Personal history of other diseases of urinary system
CPT/HCPCS: 36415; 36430; 51701; 71045; 80048; 80053; 81001; 82272; 83036; 83690; 83735; 83880; 84484; 85014; 85018; 85025; 86850; 86900; 86901; 86920; 87086; 93005; 96361; 96372; 96374; 96375; 96376; 99284; 99285

== ENCOUNTER 2020-03-23 10:09 | Outpatient (CLI) | payer MEDICARE, OTHER ==
[2020-03-23 12:30] LABS: BASOPHILS # (AUTO) 0.1 10^3/uL (0.0-0.1); BASOPHILS % (AUTO) 0.5 %; EOSINOPHILS % (AUTO) 0.1 %; HGB - HEMOGLOBIN 11.8 g/dL (14.0-18.0); LYMPHOCYTES # (AUTO) 0.7 10^3/uL (1.5-3.5); LYMPHOCYTES % (AUTO) 5.7 %; MEAN CORPUSCULAR HEMOGLOBIN 26.2 pg (27.0-31.0); MEAN CORPUSCULAR HGB CONC 31.3 g/dL (32.0-36.0); MEAN CORPUSCULAR VOLUME 83.6 fL (80.0-94.0); MONOCYTES # (AUTO) 1.1 10^3/uL (0.0-1.0); MONOCYTES % (AUTO) 9.2 %; NEUTROPHILS # (AUTO) 9.5 10^3/uL (1.5-6.6); NEUTROPHILS % (AUTO) 83.4 %; PLT - PLATELET COUNT 444 10^3/uL (130-450); RED BLOOD COUNT 4.51 10^6/uL (4.70-6.10); RED CELL DISTRIBUTION WIDTH 14.6 % (12.0-15.0); WHITE BLOOD COUNT 11.4 x10^3/uL (4.8-10.8)
[2020-03-23 12:46] LABS: HEMOGLOBIN A1C 0.84 g/dL; HEMOGLOBIN A1C % 8.6 % (4.6-6.2)
[2020-03-23 13:03] LABS: ALBUMIN 3.4 g/dL (3.2-5.5); BILIRUBIN,TOTAL 0.7 mg/dL (0.2-1.0); CALCIUM 9.8 mg/dL (8.5-10.3); CREATININE 1.3 mg/dL (0.6-1.2); TOTAL PROTEIN 6.9 g/dL (6.7-8.2)
== END 2020-03-23 23:59 | disposition home or self-care (01) ==
LOC: LAB.WCP 10:09
PROVIDERS: ATTEND Physician Assistant
DX: R63.4 Abnormal weight loss (principal); E11.9 Type 2 diabetes mellitus without complications; Z12.5 Encounter for screening for malignant neoplasm of prostate
CPT/HCPCS: 36415; 80053; 83036; 84443; 85025; G0103; 84153

== ENCOUNTER 2020-03-31 10:48 | Outpatient (CLI) | payer MEDICARE ==
[2020-03-31] MEDS ORDERED: IOVERSOL 320 100 ML VIAL IVP ONE ×2 (11:01→12:57)
[2020-03-31] MEDS ORDERED: IOVERSOL 320 50 ML VIAL ONE (11:01)
[2020-03-31] MEDS ORDERED: IOVERSOL 320 50 ML VIAL PO ONE (12:57)
--- NOTE | 2020-03-31 13:23 | CT Report ---
PROCEDURE: Abdomen/Pelvis W INDICATIONS: Abnormal weight loss CONTRAST: IV CONTRAST: Optiray 320 ml: 100 PO CONTRAST: Optiray 320 ml50 TECHNIQUE: After the administration of oral and intravenous contrast, 5 mm thick sections acquired from the diap hragms to the symphysis. 5 mm thick coronal and sagittal reformats were acquired. For radiation dos e reduction, the following was used: automated exposure control, adjustment of mA and/or kV accordin g to patient size. COMPARISON: None. FINDINGS: Image quality: Excellent. These images demonstrate diffuse thickening of the gastric wall with mucosal thickening and soft tiss ue density within the submucosal layer. There is also fat stranding surrounding the stomach at the an trum and fundus. Additionally, there are slightly engorged veins adjacent to the stomach. Free fluid is present adjacent to the stomach in the left upper quadrant adjacent to the splenic hilum, as well as free fluid in the posterior mediastinum surrounding the distalmost esophagus. Numerous threshold enlarged loco-regional lymph nodes are present in multiple upper abdominal and ret roperitoneal stations. Normal uniform attenuation of the liver without evidence of liver mass. The gallbladder is contracted and grossly unremarkable. Normal CT appearance of the spleen and pancreas. There is a simple cyst pr ojecting exophytically from the anterior margin of the right kidney in the interpolar region. Both ki dneys are otherwise within normal limits. There is no abnormally dilated loop of bowel. No acute enteric abnormality otherwise. Diffuse aortic and iliac artery atherosclerosis without aneurysm. IVC grossly unremarkable. There is no free pelvic fluid. Mild urinary bladder wall thickening is less pronounced when compared with the prior study. Right inguinal hernia containing fluid. No threshold enlarged pelvic or inguina l lymph node. There are innumerable sclerotic bone lesions throughout the osseous pelvis and visualized spine, almo st certainly telephone claims representative of metastatic disease. 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 Recommend urgent referral to gastroenterology for gastrosc opy. Reviewed by: Andrew Meyer MD on 03/31/2020 1:21 PM PDT Approved by: Andrew Meyer MD on 03/31/2020 1:21 PM PDT Station ID: [id number]
--- NOTE | 2020-03-31 13:32 | CT Report ---
PROCEDURE: CHEST W INDICATIONS: ABNORMAL WEIGHT LOSS CONTRAST: IV CONTRAST: Optiray 320 ml: 100 PO CONTRAST: Optiray 320 ml50 TECHNIQUE: After the administration of intravenous contrast, 5 mm thick sections acquired from the pulmonary api cari to the posterior costophrenic angles. 7 mm thick coronal MIP reformats were acquired. For radia tion dose reduction, the following was used: automated exposure control, adjustment of mA and/or kV according to patient size. COMPARISON: None. FINDINGS: Image quality: Excellent. Lungs and pleura: Groundglass opacity with centrilobular nodularity and mild interlobular septal thic kening in the peripheral lungs along with small volume fluid in the fissures. These findings are nons pecific. There is no focal consolidation. No significant pleural abnormality. Mediastinum: No evidence of mediastinal or hilar lymphadenopathy. Normal heart size. No pericardial e ffusion. Coronary and aortic atherosclerosis. Bones and chest wall: There are innumerable sclerotic lesions suspicious for metastatic disease. Thyr oid gland normal in size and uniform in attenuation. Abdomen: Numerous abdominal findings suspicious for gastric adenocarcinoma are reported separately. P christine see report for the CT abdomen and pelvis. IMPRESSION: Innumerable vertebral sclerotic lesions highly suspicious for metastatic disease, thought most likely to be of gastric origin. Urgent gastroenterology referral for gastroscopy recommended. Nonspecific groundglass opacity with centrilobular nodularity and mild interlobular septal thickening in the peripheral lungs bilaterally. Findings may represent interstitial lung disease such as respir atory bronchiolitis or nonspecific interstitial pneumonitis. Lymphangitic carcinomatosis could also b e considered although centrilobular nodularity is not typically seen in this entity. Reviewed by: Andrew Meyer MD on 03/31/2020 1:31 PM PDT Approved by: Andrew Meyer MD on 03/31/2020 1:31 PM PDT Station ID: [id number]
== END 2020-03-31 10:49 | disposition home or self-care (01) ==
LOC: DI 10:48
PROVIDERS: ATTEND Physician Assistant
DX: R93.5 Abnormal findings on diagnostic imaging of other abdominal regions, including retroperitoneum (principal); R93.3 Abnormal findings on diagnostic imaging of other parts of digestive tract; R93.7 Abnormal findings on diagnostic imaging of other parts of musculoskeletal system; R91.8 Other nonspecific abnormal finding of lung field
CPT/HCPCS: 71260; 74177; Q9967

== ENCOUNTER 2020-04-02 07:34 | Day surgery (SDC) | payer MEDICARE, MEDICAID ==
[~2020-04-02 07:34] MED LIST: BENZOCAINE/TETRACAINE/BUTAMBEN 20 GM ONE
[2020-04-02] MEDS ORDERED: fentaNYL 100 MCG/2 ML VIAL IVP ONE (07:35)
[2020-04-02] MEDS ORDERED: MIDAZOLAM 2 MG/2 ML VIAL IVP ONE (07:35)
[2020-04-02] MEDS ORDERED: LACTATED RINGERS 1,000 ML IV ONE (08:17)
[2020-04-02] MEDS ORDERED: LIDO GARGLE 30 ML BOTTLE TOP ONE ×2 (09:33)
[2020-04-02] MEDS ORDERED: BENZOCAINE/TETRACAINE/BUTAMBEN 20 GM TOP ONE ×2 (09:33)
[2020-04-02] MEDS ORDERED: LIDO GARGLE 30 ML BOTTLE ONE (09:46)
[2020-04-02 10:38] VITALS: BP 141/67
== END 2020-04-02 07:35 | disposition home or self-care (01) ==
LOC: SDS 07:34
PROVIDERS: ATTEND Surgery
PROC: 0DB68ZX Excision of Stomach, Via Natural or Artificial Opening Endoscopic, Diagnostic (ICD-10-PCS; principal; 2020-04-02 09:00)
DX: C16.2 Malignant neoplasm of body of stomach (principal); K21.9 Gastro-esophageal reflux disease without esophagitis; I10 Essential (primary) hypertension; E11.9 Type 2 diabetes mellitus without complications; F32.9 Major depressive disorder, single episode, unspecified; Z79.84 Long term (current) use of oral hypoglycemic drugs; Z79.899 Other long term (current) drug therapy; Z87.891 Personal history of nicotine dependence
CPT/HCPCS: 43239; 88305; 88341; 88342; 88360; A9270; J7120

== ENCOUNTER 2020-04-08 08:43 | Observation (INO) | payer MEDICARE, MEDICAID ==
[2020-04-08] MEDS ORDERED: SODIUM CHLORIDE 0.9% 1,000 ML IV STA (08:57)
--- NOTE | 2020-04-08 08:59 | ED Physician Documentation ---
History of Present Illness - Stated complaint Stated Complaint: LOSS OF APPITITE - Chief complaint Chief Complaint: General - History obtained from History obtained from: Patient, Family (sister) - Additonal information Additional information: 80-year-old gentleman who last year had GI bleeding. This year we was worked up with a CT which showed likely gastric carcinoma with mets to spine and potent ially lungs. Subsequently 6 days ago had an upper endoscopy which demonstrated a gastric mass, biopsy results are pending. Came in because he really has not been eating or drinking at all due to a combination of early satiety and poor appetite and today got dizzy and fell without injury in the kitchen. 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: None : Chronic bladder infection, Renal insuffiency, Nocturia, Frequency, Other HEENT: Chronic vision loss, Chronic sinusitis Psych: None Musculoskeletal: Fatigue Derm: None - Past Surgical History Past Surgical History: Yes General: Other /CREW CALLER: Other HEENT: Cataracts - Present Medications Home Medications: Ambulatory Orders Medication Instructions Recorded Confirmed Cholecalciferol (Vitamin D3) 2,000 unit PO DAILY 03/07/19 04/08/20 [Vitamin D3] Finasteride 5 mg PO DAILY 03/07/19 04/08/20 Metformin HCl [Metformin HCl ER] 1,000 mg PO Q12H 03/07/19 08/20/19 Pravastatin Sodium 10 mg PO DAILY 03/07/19 08/20/19 atenoloL [Atenolol] 25 mg PO BID 03/07/19 04/08/20 Ferrous Gluconate 240 mg PO BID #60 tablet 03/09/19 04/08/20 Magnesium Oxide [Mag Ox] 400 mg PO BIDWM #60 tablet 03/09/19 04/08/20 Methenamine Hippurate [Hiprex] 1 gm PO BID #60 tablet 03/09/19 04/08/20 Cyanocobalamin (Vitamin B-12) 1,000 mcg PO DAILY #10 capsule 03/15/19 04/08/20 [Vitamin B-12] Folic Acid 1 mg PO DAILY #10 tablet 03/15/19 04/08/20 Ascorbic Acid [Vitamin C] 500 mg ORAL DAILY 04/02/20 Omeprazole 20 mg ORAL DAILY 04/02/20 04/08/20 Sertraline [Zoloft] 50 mg ORAL DAILY 04/02/20 04/08/20 Spironolact/Hydrochlorothiazid 0.5 tab PO DAILY 04/02/20 04/08/20 [Spironolactone-Hctz 25-25 Tab] Sucralfate 1 gm ORAL QID 04/02/20 04/08/20 Tamsulosin HCl [Flomax] 0.4 mg ORAL DAILY PM 04/02/20 04/08/20 - Allergies Allergies/Adverse Reactions: Allergies Allergy/AdvReac Type Severity Reaction Status Date / Time Penicillins Allergy Unknown Verified 04/08/20 08:54 - Social History Does the pt smoke?: No Smoking Status: Former smoker Does the pt drink ETOH?: No Does the pt have substance abuse?: No - Immunizations Immunizations are current?: Yes - POLST Patient has POLST: No POLST Status: Full Code PD ED PE NORMAL - Vitals Vital signs reviewed: Yes - General General: Alert and oriented X 3, No acute distress - HEENT HEENT: PERRL, EOMI - Neck Neck: Supple, no meningeal sign, No bony TTP - Cardiac Cardiac: RRR, No murmur - Respiratory Respiratory: No respiratory distress, Clear bilaterally - Abdomen Abdomen: Soft, Non tender - Back Back: No CVA TTP, No spinal TTP - Derm Derm: Normal color, Warm and dry - Extremities Extremities: No edema, No calf tenderness / cord - Neuro Neuro: Alert and oriented X 3, Normal speech - Psych Psych: Normal mood, Normal affect Results - Vitals Vitals: Vital Signs - 24 hr 04/08/20 04/08/20 08:54 09:10 Temperature 36.5 C Heart Rate 101 H 88 Respiratory 18 18 Rate Blood Pressure 123/83 H 131/67 H O2 Saturation 99 98 Oxygen O2 Source Room air - Labs Labs: Laboratory Tests 04/08/20 04/08/20 09:05 09:05 WBC 11.0 H RBC 4.54 L Hgb 11.7 L Hct 38.0 L MCV 83.7 MCH 25.8 L MCHC 30.8 L RDW 15.0 Plt Count 351 MPV 10.3 Neut # (Auto) 8.9 H Lymph # (Auto) 0.7 L Alpine # (Auto) 1.1 H Eos # (Auto) 0.0 Baso # (Auto) 0.1 Absolute Nucleated RBC 0.00 Nucleated RBC % 0.0 Sodium 139 Potassium 4.0 Chloride 96 L Carbon Dioxide 24 Anion Gap 19.0 H BUN 60 H Creatinine 2.3 H Estimated GFR (MDRD) 28 L Glucose 226 H Calcium 8.9 Magnesium 2.0 Total Bilirubin 0.6 AST 17 ALT 11 Alkaline Phosphatase 707 H Total Protein 7.4 Albumin 3.7 Globulin 3.7 Albumin/Globulin Ratio 1.0 Prealbumin 19 Lipase 89 H PD MEDICAL DECISION MAKING - ED course ED course: I called the pathologist, spoke with Dr. Cee who confirmed that he has looked at the slide Of the gastric biopsies taken during endoscopy last week and it is consistent with a high-grade gastric adenocarcinoma to be confirmed with special stains. 80-year-old gentleman presents with poor appetite, poor oral intake, and apparent metastatic gastric adenocarcinoma which she was not really aware of. Labs show acute renal failure. He was administered IV fluids and counseled on the diagnosis. We will keep him for continued IV fluid therapy given the acute renal failure. Departure - Departure Disposition: ED Place in Observation Clinical Impression: Metastatic adenocarcinoma ARF (acute renal failure) Qualifiers: Acute renal failure type: unspecified Qualified Code(s): N17.9 - Acute kidney failure, unspecified Condition: Stable
[2020-04-08 09:11] LABS: BASOPHILS # (AUTO) 0.1 10^3/uL (0.0-0.1); BASOPHILS % (AUTO) 0.5 %; HGB - HEMOGLOBIN 11.7 g/dL (14.0-18.0); LYMPHOCYTES # (AUTO) 0.7 10^3/uL (1.5-3.5); LYMPHOCYTES % (AUTO) 6.6 %; MEAN CORPUSCULAR HEMOGLOBIN 25.8 pg (27.0-31.0); MEAN CORPUSCULAR HGB CONC 30.8 g/dL (32.0-36.0); MEAN CORPUSCULAR VOLUME 83.7 fL (80.0-94.0); MEAN PLATELET VOLUME 10.3 fL (7.4-11.4); MONOCYTES # (AUTO) 1.1 10^3/uL (0.0-1.0); MONOCYTES % (AUTO) 9.7 %; NEUTROPHILS # (AUTO) 8.9 10^3/uL (1.5-6.6); NEUTROPHILS % (AUTO) 81.2 %; PLT - PLATELET COUNT 351 10^3/uL (130-450); RED BLOOD COUNT 4.54 10^6/uL (4.70-6.10)
[2020-04-08 09:27] LABS: ALBUMIN 3.7 g/dL (3.2-5.5); BILIRUBIN,TOTAL 0.6 mg/dL (0.2-1.0); CALCIUM 8.9 mg/dL (8.5-10.3); CREATININE 2.3 mg/dL (0.6-1.2); TOTAL PROTEIN 7.4 g/dL (6.7-8.2)
[2020-04-08] MEDS ORDERED: ACETAMINOPHEN 325 MG TABLET PO PRN (10:02)
[2020-04-08] MEDS ORDERED: HYDROcod/ACETAM 5/325 MG TABLET PO PRN (10:02)
[2020-04-08] MEDS ORDERED: SODIUM CHLORIDE FLUSH 0.9% 10 ML SYRINGE IVP PRN (10:02)
--- NOTE | 2020-04-08 11:15 | PHARMACY PROGRESS NOTE ---
- Best Possible Medication History Admit Date and Time: 04/08/20 1002 Processed by: Pharmacy Medication History completed: Yes Patient Interview: Completed Secondary Source(s): Written medication list, Pharmacy records, Insurance records As the person ultimately responsible for medication therapy, providers are able to order a medication from an existing home medication list in [facility] via the "Reconcile Routine" prior to Confirmation of that medication by production support specialist. Such practice is discouraged except when the physician, in their clinical judgment, deems that a medical need exists for a medication without regard to previous use.
[2020-04-08] MEDS: LACTATED RINGERS 1,000 ML IV SCH ×2 (11:38→20:59)
--- NOTE | 2020-04-08 12:21 | HISTORY & PHYSICAL EXAMINATION ---
Chief Complaint - Chief Complaint Chief Complaint: LOSS OF APPITITE and fell History of Present Illness - Admitted From Admitted From:: ER - History Obtained From Records Reviewed: [facility] History obtained from: pt - History of Present Illness HPI Comment/Other: Mr. Moon is a 80-year old pleasant male with a past medical history significant for non-insulin dependent diabetes mellitus type 2, COPD, essential hypertension, hyperlipidemia, GI bleed, and status post of left inguinal hernia repair in the year 1999, malaria while he was in [place] in the , bulbar urethral stricture disease, recurrent UTI, urinary retention, nocturia, status post urethrotomy, long standing tobacco dependence in which he quit 5 years ago, who present ER complain of fell at home, weakness, and poor appetite. Patient reported he was very difficult swallow and take anything. he had only a few bites of applesauce and ensure for about 1 week. He feel fullness and satiety after a few bites of applesauce. He fell in the kitchen because he feels so weakness. He denies loss of conscious or any injury. CAT scan of chest and abdomen on 03/31/2020 show Highly suggestive of gastro adenocarcinoma with extensive metastatic disease and extensive and innumerable bony metastases. Patient also had endoscopy on last week and did the biopsy. ER provider called the pathologist and spoke with Dr. Cee who confirmed that he has looked at the slide Of the gastric biopsies, and it is consistent with a high-grade gastric adenocarcinoma by special stains. Patient denies chest pain, fever, chill, shortness of breath, GI bleeding. In routine laboratory test show patient had creatinine 2.3, patient had a baseline 1.1, BUN 60, anion gap 19, alkaline phosphatase 707. Patient presented severe dehydration with acute kidney injury, patient's swallow and oral conditions was not clear, patient is admitted in observation unit for further management. 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 He lived in [facility] for much of his life and worked for a [employer]. He has been retired for at least 10 years and has been living with his sister in [place] for the past 6 years. He continues to be independent with his ADLs, is active each day, and drives a car. He admits to long standing tobacco dependence from age [age] years in which he smoked 2 PPD. He denies alcohol or illicit drug use. He wishes to be a FULL code. - Substance History Use: Uses substance without health or social issues: NONE - POLST Patient has POLST: No POLST Status: Full Code Meds/Allgy - Home Medications Home Medications: Ambulatory Orders Medication Instructions Recorded Confirmed Cholecalciferol (Vitamin D3) 2,000 unit PO DAILY 03/07/19 04/08/20 [Vitamin D3] Finasteride 5 mg PO DAILY 03/07/19 04/08/20 Metformin HCl [Metformin HCl ER] 1,000 mg PO Q12H 03/07/19 04/08/20 Pravastatin Sodium 10 mg PO DAILY 03/07/19 04/08/20 atenoloL [Atenolol] 25 mg PO BID 03/07/19 04/08/20 Ferrous Gluconate 240 mg PO BID #60 tablet 03/09/19 04/08/20 Magnesium Oxide [Mag Ox] 400 mg PO BIDWM #60 tablet 03/09/19 04/08/20 Methenamine Hippurate [Hiprex] 1 gm PO BID #60 tablet 03/09/19 04/08/20 Cyanocobalamin (Vitamin B-12) 1,000 mcg PO DAILY #10 capsule 03/15/19 04/08/20 [Vitamin B-12] Ascorbic Acid [Vitamin C] 500 mg ORAL DAILY 04/02/20 04/08/20 Omeprazole 20 mg ORAL DAILY 04/02/20 04/08/20 Sertraline [Zoloft] 50 mg ORAL DAILY 04/02/20 04/08/20 Spironolact/Hydrochlorothiazid 0.5 tab PO DAILY 04/02/20 04/08/20 [Spironolactone-Hctz 25-25 Tab] Sucralfate 1 gm ORAL QID 04/02/20 04/08/20 Tamsulosin HCl [Flomax] 0.4 mg ORAL DAILY PM 04/02/20 04/08/20 Folic Acid 0.4 mg PO DAILY 04/08/20 04/08/20 - Allergies Allergies/Adverse Reactions: Allergies Allergy/AdvReac Type Severity Reaction Status Date / Time Penicillins Allergy Unknown Verified 04/08/20 08:54 Review of Systems - Constitutional Constitutional: reports: Fatigue, Weakness, Poor appetite, Weight loss. denies: Fever, Chills, Malaise, Diaphoresis, Night sweats, Weight gain - Eyes Eyes: denies: Pain, Blurred vision, Spots in vision, Field loss, Vision loss - Ears, Nose & Throat Ears, Nose & Throat: denies: Ear pain, Hearing loss, Nasal discharge, Nosebleeds, Sore throat, Mouth lesions, Bleeding gums - Cardiovascular Cariovascular: denies: Irregular heart rate, Palpitations, Chest pain, Edema, Lightheadedness, Syncope, Exertional dyspnea, Decr. exercise tolerance - Respiratory Respiratory: denies: Cough, Sputum production, Wheezing, Snoring, Hemoptysis, SOB at rest, SOB with exertion - Gastrointestinal Gastrointestinal: reports: Poor appetite. denies: Abdominal pain, Abdominal distention, Diarrhea, Rectal bleeding, Black stools, Bloody stools, Nausea, Vomiting, Coffee grounds emesis, Reflux/heartburn - Genitourinary Genitourinary: denies: Dysuria, Urgency, Hematuria, Incontinence, Nocturia - Musculoskeletal Musculoskeletal: denies: Muscle pain, Back pain, Stiffness, Limited range of motion, Muscle weakness, Gout - Integumentary Integumentary: denies: Rash, Lesions, Lumps, Pigment changes - Neurological Neurological: reports: General weakness. denies: Focal weakness, Headache, Dizziness, Numbness, Memory problems, Pre-existing deficit, Abnormal gait, Seizures, Incoordination, Slurred speech Exam - Vital Signs Vital Signs: Vital Signs x48h Temp Pulse Pulse Resp BP BP Pulse Ox 04/08/20 11:20 37.0 C 78 18 133/62 H 97 04/08/20 09:10 88 18 131/67 H 98 04/08/20 08:54 36.5 C 101 H 18 123/83 H 99 - Physical Exam General Appearance: positive: No acute distress, Alert. negative: Lethargic Eyes Bilateral: positive: Normal inspection, PERRL, No lid inflammation ENT: positive: ENT inspection nml, Pharynx nml, No signs of dehydration. negative: Purulent nasal drainage Neck: positive: Nml inspection, Thyroid nml, No JVD, Trachea midline. negative: Thyromegaly, Stiff neck, Tracheal deviation Respiratory: positive: Chest non-tender, No respiratory distress. negative: Wheezes, Rales, Rhonchi Cardiovascular: positive: Regular rate & rhythm, No murmur, No gallop. negative: Tachycardia, Bradycardia, Systolic murmur, Diastolic murmur Peripheral Pulses: positive: 2+ Abdomen: positive: Non-tender, No organomegaly, Nml bowel sounds, No distention. negative: Tenderness, Guarding, Rebound Back: positive: Nml inspection. negative: CVA tenderness (R), CVA tenderness (L) Skin: positive: Color nml, No rash, Warm, Dry. negative: Cyanosis, Diaphoresis, Pallor Extremities: positive: Non-tender, Full ROM, Nml appearance. negative: Calf tenderness, Brittany's sign/cords Neurologic/Psychiatric: positive: Oriented x3, Motor nml, Sensation nml, Mood/a ffect nml. negative: Weakness, Sensory loss, Facial droop, Slurred/abnml speech, Depressed mood/affect Conclusion/Plan - Problem List (1) ZEENAT (acute kidney injury) Conclusion/Plan: Patient has baseline creatinine 1.1, today he creatinine is a 2.3. Patient reported he has very poor appetite. It is likely prerenal azotemia. If patient was not response to the intravenous IV fluids, we will consideration ultrasound of retroperitoneal to see whether or not any obstruction, Or any abnormality. Continue intravenous IV fluids, continue laboratory monitoring (2) Dehydration Conclusion/Plan: Patient reported he has difficulty drinking and eating anything, and very poor appetite for about one week. Patient BUN, creatinine, anion gap all increased. Patient had recently diagnosis of gastric carcinoma. 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 But he denies injury and loss of conscious. Patient had about a 1 week very poor appetite and severe dehydration. We will start with physical therapist and occupational therapist, We will continue hydration to the patient, We will consult with librarian, hopefully patient could increase appetite (4) Severe malnutrition Conclusion/Plan: Patient lost weight 18% in past 8 months, And lost 5% weight In the last 1 week. Patient had a recent diagnosis of gastric carcinoma with extensive metastases. We will consult with librarian and add Megace.Patient declined any procedure to him such as feeding tube. (5) Early satiety Conclusion/Plan: Patient had a recent diagnosis of gastric carcinoma. He report early satiety when he had a few bites of food. Patient clearly declined any procedure to him, Such as feeding tube. We will consult librarian, encourage patient increases appetite. Intravenous of IV fluids. (6) Poor appetite Conclusion/Plan: Patient reported he had a very poor appetite, he only take a few bites of applesauce and a drink small amount of ensure in 1 week. Unfortunately patient had recently diagnosis of gastric carcinoma with extensive metastases. We will add Megace, Consult with librarian. Patient declined any feeding tube. (7) Gastric carcinoma Conclusion/Plan: Patient had CAT scan of abdomen and had endoscopy to have biopsy to confirm patient had gastric carcinoma with high grade by pathologist. Then patient had a very poor appetite, very weakness, and loss of the weight. Discussed the care plan with the patient, patient stated he will discuss with his sister, patient reported he will live with his sister together. Patient declined any surgery or any procedure to him. pt state he will considerate of hospice care after he discuss with his sister. (8) Osseous metastasis Conclusion/Plan: CAT scan Of abdomen and the chest show patient has extensive bony metastasis.patient denies any pain now.Laboratory tests do show patient had 707 alkaline phosphatase. We will continue supportive to the patient, we will discuss with pt about the care plan after he discussed with his sister. (9) Diabetes Conclusion/Plan: She taken metformin in the home without insulin.His A1c is 8.6. We will hold metformin, start with a sliding scale, ACHS check glucose, continue hypoglycemia protocol (10) HTN (hypertension) Conclusion/Plan: Patient blood pressure is stable now, we will resume his home blood pressure medication after confirmed. - Lab Results Fish Bones: 04/08/20 09:05 04/08/20 09:05 Core Measures - Anticipated LOS I expect patient to be DC'd or transferred within 96 hours.: Yes - DVT/VTE - Prophylaxis VTE/DVT Device ordered at admit?: Yes VTE/DVT Prophylaxis med ordered at admit?: Yes
[2020-04-08 13:07] LABS: HB2 TOTAL 12.4 g/dL; HEMOGLOBIN A1C 0.87 g/dL; HEMOGLOBIN A1C % 8.6 % (4.6-6.2)
[2020-04-08] MEDS: FERROUS GLUCONATE 324 MG TABLET PO SCH (13:32)
[2020-04-08] MEDS: MEGESTROL 400 MG/10 ML UDC PO SCH (13:32)
[2020-04-08] MEDS: SODIUM CHLORIDE FLUSH 0.9% 10 ML SYRINGE IVP SCH ×2 (16:45→21:13)
[2020-04-08] MEDS: INSULIN ASPART 300 UNIT/3 ML PEN SUBQ SCH ×2 (16:59→21:03)
[2020-04-08] MEDS ORDERED: TAMSULOSIN 0.4 MG CAPSULE PO SCH (17:00)
[2020-04-08 18:29] LABS: BILIRUBIN,URINE NEGATIVE (NEGATIVE); GLUCOSE, URINE (UA) NEGATIVE (NEGATIVE); KETONES,URINE (UA) 15 mg/dL (NEGATIVE); LEUKOCYTE ESTERASE, URINE NEGATIVE (NEGATIVE); NITRITE,URINE POSITIVE (NEGATIVE); OCCULT BLOOD,URINE NEGATIVE (NEGATIVE); PROTEIN,URINE TRACE mg/dL (NEGATIVE); UROBILINOGEN,URINE 0.2 (NORMAL) E.U./dL (NORMAL)
[2020-04-08 18:33] LABS: CLARITY,URINE HAZY (CLEAR)
[2020-04-08 18:46] LABS: BACTERIA,URINE Many /HPF (None Seen); RBC,URINE 0-5 /HPF (0-5); SQUAMOUS EPITHELIAL CELL,UR FEW Squamous (<= Few)
[2020-04-08] MEDS: atenoloL 25 MG TABLET PO SCH (21:00)
[2020-04-09] MEDS: LACTATED RINGERS 1,000 ML IV SCH ×2 (03:08→12:30)
[2020-04-09 05:04] LABS: BASOPHILS % (AUTO) 0.3 %; HGB - HEMOGLOBIN 9.7 g/dL (14.0-18.0); LYMPHOCYTES # (AUTO) 0.6 10^3/uL (1.5-3.5); LYMPHOCYTES % (AUTO) 8.6 %; MEAN CORPUSCULAR HEMOGLOBIN 26.1 pg (27.0-31.0); MEAN CORPUSCULAR HGB CONC 31.2 g/dL (32.0-36.0); MEAN CORPUSCULAR VOLUME 83.6 fL (80.0-94.0); MEAN PLATELET VOLUME 10.3 fL (7.4-11.4); MONOCYTES # (AUTO) 0.8 10^3/uL (0.0-1.0); MONOCYTES % (AUTO) 12.2 %; NEUTROPHILS % (AUTO) 76.6 %; PLT - PLATELET COUNT 238 10^3/uL (130-450); RED BLOOD COUNT 3.72 10^6/uL (4.70-6.10); RED CELL DISTRIBUTION WIDTH 15.3 % (12.0-15.0); WHITE BLOOD COUNT 6.5 x10^3/uL (4.8-10.8)
[2020-04-09 05:19] LABS: CALCIUM 8.2 mg/dL (8.5-10.3); CREATININE 1.4 mg/dL (0.6-1.2); MAGNESIUM 1.8 mg/dL (1.7-2.8); PHOSPHORUS 2.6 mg/dL (2.5-4.6)
[2020-04-09] MEDS ORDERED: PANTOPRAZOLE 40 MG TABLET PO SCH (07:00)
[2020-04-09] MEDS: INSULIN ASPART 300 UNIT/3 ML PEN SUBQ SCH ×2 (08:05→12:44)
[2020-04-09] MEDS ORDERED: FINASTERIDE 5 MG TABLET PO SCH (09:00)
[2020-04-09] MEDS ORDERED: HEPARIN 5,000 UNIT/ML VIAL SUBQ SCH (09:00)
[2020-04-09] MEDS ORDERED: CIPROFLOXACIN 250 MG TABLET PO SCH (09:00)
[2020-04-09] MEDS ORDERED: SERTRALINE 50 MG TABLET PO SCH (09:00)
[2020-04-09] MEDS: FERROUS GLUCONATE 324 MG TABLET PO SCH (10:27)
[2020-04-09] MEDS: atenoloL 25 MG TABLET PO SCH (10:27)
[2020-04-09] MEDS: MEGESTROL 400 MG/10 ML UDC PO SCH (10:28)
[2020-04-09] MEDS: SODIUM CHLORIDE FLUSH 0.9% 10 ML SYRINGE IVP SCH (10:28)
--- NOTE | 2020-04-09 11:01 | CONSULTATION NOTE ---
Palliative Care Consultation - Referral Referring Provider: Demetris CABRERA Time of Visit: [id number] Referral setting: Hospitalized patient Referral Reason: Metastatic High grade gastric adenocarcinoma/FTT/Goals of Care - Information Sources Records reviewed: Previous records reviewed History/Review of Systems obtained from: Patient, Family (sister Sabi) Exam limitations: Clinical condition (patient overwhelmed; mild anxiety;) - History of Present Illness Brief History of Present Illness: This is a 80-year-old gentleman who has presented with failure to thrive over the last couple of months, and more acutely over the last 2 weeks. He has had poor appetite, with early satiety, denies any pain, GERD symptoms, or nausea and vomiting just unable to eat. He has been over the last week drinking Pedialyte and Ensure, but did become more and more weak, had a fall, and was admitted with dehydration, ZEENAT, and severe malnutrition. Patient and sister report their understanding was he did have cancer, they learn ed this in the ED. Patient had had a CT scan on 630, which did show diffuse thickening of the gastric wall with mucosal thickening and soft tissue density in submucosal layer. Significantly enlarged regional lymph nodes, no evidence of liver lesions, but extensive metastatic disease with innumerable osseous mets. He was urgently referred to GI. He did have an endoscopy with biopsy, and results were available to the ED physician. They do feel like the news was delivered in a compassionate but straightforward way. They are though wondering the implications of this. We did discuss that he does have stage IV disease, patient is not interested in any surgery, the most likely would not be a surgical candidate given his extensive disease. He is quite frail, does recognize this is most likely an end-of-life event, and palliative care is been asked to meet with them to define goals of care. Of note patient did present about a year ago, with GI bleeding, anemia, recurrent UTI, and CKD stage III. He did receive at that point in time of colonoscopy, without any findings, also had an endoscopy in follow-up with no findings as well. He did see oncology for his anemia, and was put on iron at that point in time. They had offered a capsule endoscopy at the [facility], but he had declined his things had gotten better. Patient is quite weak, has lost a total of 25 pounds, current weight is around 136. He continues to be challenged to meet his nutritional needs, but is not interested in any kind of nutritional support. He had tried the Megace, disliked the taste and was likely would not be compliant with it in the future per his sister. Patient has no pain, he has had profound and worsening fatigue as well as weakness. He has been frustrated by his lack of ability to eat, they have been trying multiple strategies. We did have a very long extensive discussion about his priorities, his sister is quite concerned that he will go through significant suffering with the same outcome. They have been preparing over this last week for his end-of-life event, getting affairs in order, patient has significant amount of financial stressors, but is well supported by his Sister Sabi. He has moved here from [place] and they have lived together the last 7 years, and are obviously fond of each other. 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 He did serve in [place] and was exposed to agent orange back then. Sabi's sister, has followed her kids around his they have been in the , and landed on [facility]. She has a small home, but had her brother who is had difficultie) Family History - Family History Family History: Mother: , Father: Medications/Allergies - Medications Active Medication List: Active Medications Acetaminophen (Tylenol) 650 mg PO Q4HR PRN PRN Reason: Pain 1 to 4 Hydrocodone Bitart/Acetaminophen (Twining 5/325) 1 tab PO Q4HR PRN PRN Reason: Pain 5 to 7 Atenolol (Tenormin) 25 mg PO BID JOSÉ MIGUEL Last Admin: 07/09/20 10:27 Dose: 25 mg Documented by: Ciprofloxacin (Cipro) 500 mg PO BID [facility] Last Admin: 04/09/20 10:27 Dose: 500 mg Documented by: Dexamethasone (Decadron) [facility] [place] Gluconate (Fergon) 324 mg PO DAILY [facility] Last Admin: 04/09/20 10:27 Dose: 324 mg Documented by: Finasteride (Proscar) 5 mg PO DAILY [facility] Last Admin: 04/09/20 10:28 Dose: 5 mg Documented by: Heparin Sodium (Porcine) () 5,000 unit SUBQ BID [facility] Last Admin: 04/09/20 10:33 Dose: Not Given Documented by: Lactated Ringer's (Lr) 1,000 mls @ 125 mls/hr IV .Q8H [facility] Last Admin: 04/09/20 03:08 Dose: 125 mls/hr Documented by: Insulin Aspart (Novolog) 1 - 9 unit SUBQ 0800,1200,1700,2100 [facility]; Protocol Last Admin: 04/09/20 08:05 Dose: 1 unit Documented by: Pantoprazole Sodium (Protonix) 40 mg PO QDAC [facility] Last Admin: 04/09/20 07:45 Dose: 40 mg Documented by: Sertraline HCl (Zoloft) 50 mg PO DAILY [facility] Last Admin: 04/09/20 10:27 Dose: 50 mg Documented by: Sodium Chloride (Normal Saline Flush 0.9%) 10 ml IVP PRN PRN PRN Reason: NEEDED PER PROVIDER ORDERS Last Admin: 04/08/20 11:39 Dose: 10 ml Documented by: Sodium Chloride (Normal Saline Flush 0.9%) 10 ml IVP 0100,0900,1700 [facility] Last Admin: 04/09/20 10:28 Dose: 10 ml Documented by: Tamsulosin HCl (Flomax) 0.4 mg PO DAILY@1700 [facility] Last Admin: 04/08/20 16:59 Dose: 0.4 mg Documented by: Cholecalciferol (Vitamin D3) [Vitamin D3] 2,000 unit PO DAILY 03/07/19 Finasteride 5 mg PO DAILY 03/07/19 Metformin HCl [Metformin HCl ER] 1,000 mg PO Q12H 03/07/19 Pravastatin Sodium 10 mg PO DAILY 03/07/19 atenoloL [Atenolol] 25 mg PO BID 03/07/19 Ascorbic Acid [Vitamin C] 500 mg ORAL DAILY 04/02/20 Omeprazole 20 mg ORAL DAILY 04/02/20 Sertraline [Zoloft] 50 mg ORAL DAILY 04/02/20 Spironolact/Hydrochlorothiazid [Spironolactone-Hctz 25-25 Tab] 0.5 tab PO DAILY 04/02/20 Sucralfate 1 gm ORAL QID 04/02/20 Tamsulosin HCl [Flomax] 0.4 mg ORAL DAILY PM 04/02/20 Folic Acid 0.4 mg PO DAILY 04/08/20 - Allergies Allergies/Adverse Reactions: Allergies Allergy/AdvReac Type Severity Reaction Status Date / Time Penicillins Allergy Unknown Verified 04/08/20 08:54 Review of Systems - Constitutional Constitutional: reports: Fatigue (worsening over several weeks), Weakness, Poor appetite, Weight loss (25 pounds). denies: Fever, Chills - Eyes Eyes: reports: Vision loss, Corrective lenses - Ears, Nose & Throat Ears, Nose & Throat: reports: Hearing loss, Dental decay, Dry mouth - Cardiovascular Cardiovascular: reports: Lightheadedness, Exertional dyspnea, Decr. exercise tolerance. denies: Chest pain, Edema - Respiratory Respiratory: reports: SOB with exertion. denies: SOB at rest - Gastrointestinal Gastrointestinal: reports: Constipation, Poor appetite, Early satiety. denies: Abdominal pain, Nausea, Reflux/heartburn - Genitourinary Genitourinary: reports: Frequency. denies: Dysuria - Musculoskeletal Musculoskeletal: reports: Muscle aches, Stiffness, Muscle weakness - Integumentary Integumentary: reports: Dryness - Neurological Neurological: reports: General weakness, Memory problems (mild) - Psychiatric Psychiatric: reports: Depression, Anxiety - Endocrine Endocrine: reports: Diabetes type 2 - Hematologic/Lymphatic Hematologic/Lymphatic: reports: Anemia (9.7 hgb), Recurrent infections (hx of utis) - All Other Systems All Other Systems: reports: Reviewed and negative Physical Exam - Vital Signs Vital Signs: Vital Signs x48h Temp Pulse Resp BP Pulse Ox 04/09/20 07:59 70 17 135/59 H 93 04/09/20 06:40 37.0 C 74 16 116/42 L 94 04/09/20 05:05 37.1 C 74 16 122/53 L 94 - Physical Exam General Appearance: positive: No acute distress, Alert Eyes Bilateral: positive: Normal inspection ENT: positive: Other (poor dentition) Neck: positive: Trachea midline Cardiovascular: positive: Regular rate & rhythm Respiratory: positive: No respiratory distress Abdomen: positive: Non-tender, Soft, Nml bowel sounds, Distended (mild) Skin: positive: Pallor, Dryness Extremities: positive: No pedal edema Neurologic/Psychiatric: positive: Oriented x3, Mood/affect nml, Weakness Palliative Care - POLST Patient has POLST: Yes POLST Status: DNR, Comfort Measures Pain: No pain Tiredness/Fatigue: Moderate (4-6) Drowsiness/Sedation: Mild (1-3) Nausea: None Anorexia: Severe (7-10), Weight loss Dyspnea: Moderate (4-6) Depression: Moderate (4-6) Anxiety: Moderate (4-6) Feelings of wellbeing/Perceived Quality of Life: Fair, Worsening Sleep: Sleeps well Constipation: Yes, Intermittent constipation Performance Status: Patient has been declining functionally, has been able to walk around his home, but has been getting weaker. He has been spending more time in bed, more sedentary, would put him at a PPS of 50%, or ECOG 3. - Palliative Care Discussion: I met with both patient and his Sister Sabi to explore goals of care. They do understand he has serious cancer, we discussed stage IV gastric cancer with metastatic disease, is of course there is concern. According to NCCN guidelines, treatment would be chemoradiation, or best supportive care. We did discuss what is most important to him, he is not wanting to prolong his suffering, his sister is concerned about anything that might make him more sick or disabled, I do recognize his impending decline. We did discuss referral to oncology, to at least hear his options, what that might look like and what further work-up might be needed. After much discussion, His sister and he decided that it was more congruent with his priorities, to not further pursue any treatment, but focus on the time he has left. Counseling provided regarding the hospice benefit, patient would meet criteria given he has metastatic stage IV cancer, we would know his prognosis is less than 6 months, and more likely to be weeks to months. He would like to focus on comfort, spending time with family, and to have a at home. We discussed what hospice does provide, but also the limitations as far as halfway care or placement. We did complete his D POA for healthcare, with his through his primary and her daughter is secondary. Patient has no children. We also completed a POLST as DNA R and comfort measures, determine the use of antibiotics with comfort is the goal, and no medically assisted nutrition. In follow-up with hospice, unfortunately there is a long cue both for [facility]. Patient is currently received fluids, feeling somewhat better, hopefully will do okay over the next week prior to admit. Results - Lab Results Lab results reviewed: Yes Fish Bones: 04/09/20 04:55 04/09/20 04:55 Lab and Imaging Results: Lab Results x24hrs 04/09/20 04/09/20 04/09/20 Range/Units 07:55 04:55 04:55 WBC 6.5 (4.8-10.8) x10^3/uL RBC 3.72 L (4.70-6.10) 10^6/uL Hgb 9.7 L (14.0-18.0) g/dL Hct 31.1 L (42.0-52.0) % MCV 83.6 (80.0-94.0) fL MCH 26.1 L (27.0-31.0) pg MCHC 31.2 L (32.0-36.0) g/dL RDW 15.3 H (12.0-15.0) % Plt Count 238 (130-450) 10^3/uL MPV 10.3 (7.4-11.4) fL Neut # (Auto) 5.0 (1.5-6.6) 10^3/uL Lymph # (Auto) 0.6 L (1.5-3.5) 10^3/uL [place] # (Auto) 0.8 (0.0-1.0) 10^3/uL Eos # (Auto) 0.0 (0.0-0.7) 10^3/uL Baso # (Auto) 0.0 (0.0-0.1) 10^3/uL Absolute Nucleated RBC 0.00 x10^3/uL Nucleated RBC % 0.0 /100WBC Sodium 140 (135-145) mmol/L Potassium 3.5 (3.5-5.0) mmol/L Chloride 105 (101-111) mmol/L Carbon Dioxide 27 (21-32) mmol/L Anion Gap 8.0 (6-13) BUN 40 H (6-20) mg/dL Creatinine 1.4 H (0.6-1.2) mg/dL Estimated GFR (MDRD) 49 L (>89) Glucose 173 H (70-100) mg/dL POC Whole Bld Glucose 168 H (70 - 100) mg/dL Glycated Hemoglobin (4.6-6.2) % Estim Average Glucose (70-100) Calcium 8.2 L (8.5-10.3) mg/dL Phosphorus 2.6 (2.5-4.6) mg/dL Magnesium 1.8 (1.7-2.8) mg/dL Urine Color Urine Clarity (CLEAR) Urine pH (5.0-7.5) PH Ur Specific [place] (1.002-1.030) Urine Protein (NEGATIVE) mg/dL Urine Glucose (UA) (NEGATIVE) mg/dL Urine Ketones (NEGATIVE) mg/dL Urine Occult Blood (NEGATIVE) Urine Nitrite (NEGATIVE) Urine Bilirubin (NEGATIVE) Urine Urobilinogen (NORMAL) E.U./dL Ur Leukocyte Esterase (NEGATIVE) Urine RBC (0-5) /HPF Urine WBC (0-3) /HPF Ur Squamous Epith Cells (<= Few) Urine Bacteria (None Seen) /HPF Urine Culture Comments 04/08/20 04/08/20 04/08/20 Range/Units 21:03 18:07 16:51 WBC (4.8-10.8) x10^3/uL RBC (4.70-6.10) 10^6/uL Hgb (14.0-18.0) g/dL Hct (42.0-52.0) % MCV (80.0-94.0) fL MCH (27.0-31.0) pg MCHC (32.0-36.0) g/dL RDW (12.0-15.0) % Plt Count (130-450) 10^3/uL MPV (7.4-11.4) fL Neut # (Auto) (1.5-6.6) 10^3/uL Lymph # (Auto) (1.5-3.5) 10^3/uL [place] # (Auto) (0.0-1.0) 10^3/uL Eos # (Auto) (0.0-0.7) 10^3/uL Baso # (Auto) (0.0-0.1) 10^3/uL Absolute Nucleated RBC x10^3/uL Nucleated RBC % /100WBC Sodium (135-145) mmol/L Potassium (3.5-5.0) mmol/L Chloride (101-111) mmol/L Carbon Dioxide (21-32) mmol/L Anion Gap (6-13) BUN (6-20) mg/dL Creatinine (0.6-1.2) mg/dL Estimated GFR (MDRD) (>89) Glucose (70-100) mg/dL POC Whole Bld Glucose 152 H 194 H (70 - 100) mg/dL Glycated Hemoglobin (4.6-6.2) % Estim Average Glucose (70-100) Calcium (8.5-10.3) mg/dL Phosphorus (2.5-4.6) mg/dL Magnesium (1.7-2.8) mg/dL Urine Color YELLOW Urine Clarity HAZY (CLEAR) Urine pH 5.0 (5.0-7.5) PH Ur Specific [place] >=1.030 H (1.002-1.030) Urine Protein TRACE (NEGATIVE) mg/dL Urine Glucose (UA) NEGATIVE (NEGATIVE) mg/dL Urine Ketones 15 H (NEGATIVE) mg/dL Urine Occult Blood NEGATIVE (NEGATIVE) Urine Nitrite POSITIVE H (NEGATIVE) Urine Bilirubin NEGATIVE (NEGATIVE) Urine Urobilinogen 0.2 (NORMAL) (NORMAL) E.U./dL Ur Leukocyte Esterase NEGATIVE (NEGATIVE) Urine RBC 0-5 (0-5) /HPF Urine WBC 6-10 H (0-3) /HPF Ur Squamous Epith Cells FEW Squamous (<= Few) Urine Bacteria Many H (None Seen) /HPF Urine Culture Comments INDICATED 04/08/20 Range/Units 09:05 WBC (4.8-10.8) x10^3/uL RBC (4.70-6.10) 10^6/uL Hgb (14.0-18.0) g/dL Hct (42.0-52.0) % MCV (80.0-94.0) fL MCH (27.0-31.0) pg MCHC (32.0-36.0) g/dL RDW (12.0-15.0) % Plt Count (130-450) 10^3/uL MPV (7.4-11.4) fL Neut # (Auto) (1.5-6.6) 10^3/uL Lymph # (Auto) (1.5-3.5) 10^3/uL [place] # (Auto) (0.0-1.0) 10^3/uL Eos # (Auto) (0.0-0.7) 10^3/uL Baso # (Auto) (0.0-0.1) 10^3/uL Absolute Nucleated RBC x10^3/uL Nucleated RBC % /100WBC Sodium (135-145) mmol/L Potassium (3.5-5.0) mmol/L Chloride (101-111) mmol/L Carbon Dioxide (21-32) mmol/L Anion Gap (6-13) BUN (6-20) mg/dL Creatinine (0.6-1.2) mg/dL Estimated GFR (MDRD) (>89) Glucose (70-100) mg/dL POC Whole Bld Glucose (70 - 100) mg/dL Glycated Hemoglobin 8.6 H (4.6-6.2) % Estim Average Glucose 200 H (70-100) Calcium (8.5-10.3) mg/dL Phosphorus (2.5-4.6) mg/dL Magnesium (1.7-2.8) mg/dL Urine Color Urine Clarity (CLEAR) Urine pH (5.0-7.5) PH Ur Specific [place] (1.002-1.030) Urine Protein (NEGATIVE) mg/dL Urine Glucose (UA) (NEGATIVE) mg/dL Urine Ketones (NEGATIVE) mg/dL Urine Occult Blood (NEGATIVE) Urine Nitrite (NEGATIVE) Urine Bilirubin (NEGATIVE) Urine Urobilinogen (NORMAL) E.U./dL Ur Leukocyte Esterase (NEGATIVE) Urine RBC (0-5) /HPF Urine WBC (0-3) /HPF Ur Squamous Epith Cells (<= Few) Urine Bacteria (None Seen) /HPF Urine Culture Comments Impression and Recommendations - Palliative Care Impression: This is a 80-year-old gentleman who presents with high-grade gastric adenocarcinoma, with metastatic disease and extensive and innumerable bony metastasis. Patient does not present with high symptom burden, other than severe anorexia, but does present with failure to thrive. With worsening fatigue, declining functional status, weight loss, and generalized weakness. Family conference was held, goals of care were determined, hospice was most alignment with patient's priorities. Palliative care providing support for transition plan. Recommendations/Counseling Done: 1.Anorexia. Patient dislikes Megace, would recommend discharging on dexamethasone 4 mg, patient did agree he would take a pill. This would help not only his appetite, but most likely his energy short-term as well. Patient is on a PPI. 2. Generalized weakness. Patient has had significant loss of weight, 18% of body mass over the last several months. He has functional decline, and presents with failure to thrive. Patient would most likely benefit from a walker and further equipment needs can be evaluated through hospice. 3. Advanced care planning. Family meeting held to define goals of care, after much discussion weighing benefits and burdens of moving forward, patient is picked best supportive care, this would include transitioning to hospice. Counseling provided regarding the hospice benefit both services as well as limitations. Patient and sister were given opportunity to have questions addressed. POLST with DNA R/comfort measures as well as D POA was completed, with copies on file for [facility]. Addendum. Patient unable to have hospice admit until , did contact primary care office for urgent referral for palliative care, will have myself or colleague to see patient at beginning the week, for further symptom management and transition plan. Time Spent: 60 minutes with greater than 50% of this done in counseling for goals of care, coordination of care with hospice and hospitalist and clinical team.
[2020-04-09] MEDS ORDERED: dexAMETHasone 4 MG TABLET PO SCH (12:00)
--- NOTE | 2020-04-09 12:04 | Discharge Plan ---
Discharge Plan Problem Reviewed?: Yes Disposition: 50 Hospice/Home DC/Xfer Condition: Serious Prescriptions: LORazepam [Ativan] 0.5 mg PO Q6H PRN #20 tablet PRN Reason: Anxiety Ciprofloxacin HCl [Cipro] 250 mg PO BID #12 tablet dexAMETHasone [Decadron] 4 mg PO DAILY #10 tablet Morphine Sulfate [Morphine Sulf Oral (Roxanol)] 5 mg PO Q4H PRN #30 ml PRN Reason: Pain/Dyspnea Diet: Soft Shower Restrictions: No (fall precaution) Instruction Topics: Dehydration, Dexamethasone tablets, Lorazepam tablets, Morphine oral solution, Ciprofloxacin tablets Health Concerns: dehydration, UTI and hospice care Plan of Treatment: you have poor appetite, you are prescribed Decatron for stimulation of your appetite , advise you keep hydration, and followup with hospice care. you are prescribed Ativan for your anxiety as needed, prevention of pain with prescribed Morphine as needed before hospice care team to see you. Cipro is prescribed for your UTI infection treatment. Care Goals: quality of life, comfortable with hospice care. Assessment: discussed the care plan with you and your sister Suzanna, you understood and agreed hospice care in your home. Additional Instructions or Follow Up instructions: you may be followup with hospice care team, geriatric social worker and palliative care are arranging for you. No Smoking: If you smoke, Please STOP! Call for help. Follow-up with: Keara Yuen PA [Primary Care Provider] -
--- NOTE | 2020-04-09 12:21 | DISCHARGE SUMMARY ---
"Discharge Summary Admit Date: 04/08/20 Discharge Date: 04/09/20 Discharging Provider: Demetris Naik Primary Care Provider: Kesha Almaraz Condition at Discharge: Serious Discharge Disposition: 50 Hospice/Home DC/Xfer Discharge Facility Name: home - DIAGNOSES Discharge Diagnoses with Status of Each Condition: (1) Gastric carcinoma Patient has High grade of gastric carcinoma with Extensive metastases. At this point, patient and her sister choose hospice care. hospice referral was done, social work and palliative care will follow up with the patient. hospice care team will follow up with the patient. Patient is prescribed Ativan and morphine for hospice care. Patient has no pain right now but patient has Extensive metastasis in the bone, Patient understand for pain using Morphine. (2) Osseous metastasis CAT scan Of abdomen and the chest show patient has extensive bony metastasis.patient denies any pain now.Patient and his sister choose hospice care. (3) ZEENAT (acute kidney injury) Resolved, Creatinine is as patient baseline (4) Dehydration Resolved, patient is strongly encouraged to drink water and keep hydration (5) Generalized weakness Patient use hospice care (6) Severe malnutrition Patient is prescribed Decadron for stimulation of appetite, patient is encouraged to eat more (7) Early satiety Patient has gastric carcinoma unfortunately,Patient is prescribed Decadron for stimulation of appetite (8) Poor appetite Patient has gastric carcinoma unfortunately,Patient is prescribed Decadron for stimulation of appetite, Follow-up hospice care (9) Diabetes Chronic (10) HTN (hypertension) Stable (11)UTI Patient Was prescribed Cipro for treatment of the UTI (12)hospice care Patient has High grade of gastric carcinoma with Extensive metastases. At this point, patient and her sister choose hospice care. hospice referral was done, social work and palliative care will follow up with the patient. hospice care team will follow up with the patient. - HPI History of Present Illness: Mr. Moon is a 80-year old pleasant male with a past medical history significant for non-insulin dependent diabetes mellitus type 2, COPD, essential hypertension, hyperlipidemia, GI bleed, and status post of left inguinal hernia repair in the year 1999, malaria while he was in [place] in the , bulbar urethral stricture disease, recurrent UTI, urinary retention, nocturia, status post urethrotomy, long standing tobacco dependence in which he quit 5 years ago, who present ER complain of fell at home, weakness, and poor appetite. Patient reported he was very difficult swallow and take anything. he had only a few bites of applesauce and ensure for about 1 week. He feel fullness and satiety after a few bites of applesauce. He fell in the kitchen because he feels so weakness. He denies loss of conscious or any injury. CAT scan of chest and abdomen on 03/31/2020 show Highly suggestive of gastro adenocarcinoma with extensive metastatic disease and extensive and innumerable bony metastases. Yanet ent also had endoscopy on last week and did the biopsy. ER provider called the pathologist and spoke with Dr. Cee who confirmed that he has looked at the slide Of the gastric biopsies, and it is consistent with a high-grade gastric adenocarcinoma by special stains. Patient denies chest pain, fever, chill, shortness of breath, GI bleeding. In routine laboratory test show patient had creatinine 2.3, patient had a baseline 1.1, BUN 60, anion gap 19, alkaline phosphatase 707. Patient presented severe dehydration with acute kidney injury, patient's swallow and oral conditions was not clear, patient is admitted in observation unit for further management. Discussed with the patient about the care goal, patient request DNR/DNI - CONSULTS | PROCEDURES Consultations: palliative care, Ms. Patricia Arroyo Procedures: hospice care - HOSPITAL COURSE Hospital Course: Patient was admitted for dehydration, acute kidney injury and very poor appetite. Patient was already known gastro carcinoma. CAT scan of the chest show extensive metastases in the bone And a possible lung. Patient has very poor ap petite. Patient was treated with intravenous IV fluids, patient was prescribed appetite stimulate. Patient's creatinine level of acute kidney injury with dehydration is resolved as patient baseline. Palliative care was consulted for patient. Patient had a biopsy by endoscopy which confirm patient had high-grade of gastric carcinoma. Patient and patient's sister choose hospice care. Hospice care was referral. - ALLERGIES Allergies/Adverse Reactions: Allergies Allergy/AdvReac Type Severity Reaction Status Date / Time Penicillins Allergy Unknown Verified 04/08/20 08:54 - MEDICATIONS Home Medications: Ambulatory Orders Medication Instructions Recorded Confirmed Cholecalciferol (Vitamin D3) 2,000 unit PO DAILY 03/07/19 04/08/20 [Vitamin D3] Finasteride 5 mg PO DAILY 03/07/19 04/08/20 Metformin HCl [Metformin HCl ER] 1,000 mg PO Q12H 03/07/19 04/08/20 Pravastatin Sodium 10 mg PO DAILY 03/07/19 04/08/20 atenoloL [Atenolol] 25 mg PO BID 03/07/19 04/08/20 Ferrous Gluconate 240 mg PO BID #60 tablet 03/09/19 04/08/20 Magnesium Oxide [Mag Ox] 400 mg PO BIDWM #60 tablet 03/09/19 04/08/20 Methenamine Hippurate [Hiprex] 1 gm PO BID #60 tablet 03/09/19 04/08/20 Cyanocobalamin (Vitamin B-12) 1,000 mcg PO DAILY #10 capsule 03/15/19 04/08/20 [Vitamin B-12] Ascorbic Acid [Vitamin C] 500 mg ORAL DAILY 04/02/20 04/08/20 Omeprazole 20 mg ORAL DAILY 04/02/20 04/08/20 Sertraline [Zoloft] 50 mg ORAL DAILY 04/02/20 04/08/20 Spironolact/Hydrochlorothiazid 0.5 tab PO DAILY 04/02/20 04/08/20 [Spironolactone-Hctz 25-25 Tab] Sucralfate 1 gm ORAL QID 04/02/20 04/08/20 Tamsulosin HCl [Flomax] 0.4 mg ORAL DAILY PM 04/02/20 04/08/20 Folic Acid 0.4 mg PO DAILY 04/08/20 04/08/20 Ciprofloxacin HCl [Cipro] 250 mg PO BID #12 tablet 04/09/20 LORazepam [Ativan] 0.5 mg PO Q6H PRN #20 tablet 04/09/20 Morphine Sulfate [Morphine Sulf 5 mg PO Q4H PRN #30 ml 04/09/20 Oral (Roxanol)] dexAMETHasone [Decadron] 4 mg PO DAILY #10 tablet 04/09/20 - PHYSICAL EXAM AT DISCHARGE General Appearance: positive: No acute distress, Alert, Lethargic Eyes Bilateral: positive: Normal inspection, PERRL, No lid inflammation ENT: positive: ENT inspection nml, No signs of dehydration. negative: Purulent nasal drainage Neck: positive: Nml inspection, Thyroid nml, Trachea midline. negative: Thyromegaly, Stiff neck, Tracheal deviation Respiratory: positive: Chest non-tender, No respiratory distress. negative: Wheezes, Rales Cardiovascular: positive: Regular rate & rhythm, No murmur, No gallop. neg ative: Tachycardia, Bradycardia, Systolic murmur, Diastolic murmur Abdomen: positive: Non-tender, No organomegaly, Nml bowel sounds. negative: Tenderness, Guarding, Rebound Back: positive: Nml inspection Skin: positive: No rash, Warm, Dry, Pallor. negative: Cyanosis, Diaphoresis Extremities: positive: Non-tender, Full ROM, Nml appearance. negative: Calf tenderness, Brittany's sign/cords Neurologic/Psychiatric: positive: Oriented x3, Motor nml, Sensation nml. negative: Weakness, Sensory loss, Facial droop, Slurred/abnml speech, Depressed mood/affect - LABS Result Diagrams: 04/09/20 04:55 04/09/20 04:55 - FOLLOW UP Follow Up: you have poor appetite, you are prescribed Decatron for stimulation of your appetite , advise you keep hydration, and followup with hospice care. you are prescribed Ativan for your anxiety as needed, prevention of pain with prescribed Morphine as needed before hospice care team to see you. Cipro is prescribed for your UTI infection treatment. you may be followup with hospice care team, social work instructor and palliative care are arranging for you. - TIME SPENT Time Spent in Discharge (Minutes): 30"
[2020-04-09 12:40] VITALS: BP 141/59
--- NOTE | 2020-04-09 18:17 | ADVANCE CARE PLANNING NOTE ---
Advance Care Planning - Planning Encounter Date: 04/09/20 Time: 10:00 Purpose: advanced care plan for pt Parties in Attendance: pt and me Decisional Capacity of the Patient: pt is alert and oriented, and he has full capacity to make his own decision. but he like his sister Suzanna to involve his decision making. - Encounter Subjective/Patient's Story: pt present ER complain of fell at home, weakness, and poor appetite. Patient reported he was very difficult swallow and take anything. he had only a few bites of applesauce and ensure for about 1 week. He feel fullness and satiety after a few bites of applesauce. He fell in the kitchen because he feels so weakness. He denies loss of conscious or any injury. CAT scan of chest and abdomen on 03/31/2020 show Highly suggestive of gastro adenocarcinoma with extensive metastatic disease and extensive and innumerable bony metastases. Patient also had endoscopy on last week and did the biopsy. ER provider called the pathologist and spoke with Dr. Cee who confirmed that he has looked at the slide Of the gastric biopsies, and it is consistent with a high-grade gastric adenocarcinoma by special stains. Patient denies chest pain, fever, chill, shortness of breath, GI bleeding. Patient know his diagnosis with high grade gastric carcinoma With extensive metastases. He has no appetite. He clearly state he does not want any surgery or artificial feeding tube. He is thinking to choose hospice care. He would like his Sister Loretta involved his decision making. Palliative care was consulted. Finally patient with his sister make the decision to do the hospice care Objective/Medical Story: Mr. Moon is a 80-year-old gentleman who presents with high-grade gastric adenocarcinoma, with metastatic disease and extensive and innumerable bony metastasis. I had about one year ago with GI bleed at that time. I am familiar with his previous medical conditions. pt has hx of heavy smoking with 2-3 pack cigarette per day for over 60 yrs. Patient does not present with high symptom burden, other than severe anorexia, but does present with failure to thrive. With worsening fatigue, declining functional status, weight loss, and generalized weakness. Goals of Care: quality of life and end life of care with hospice care Plan: d/c to home with hospice care. Social work and palliative care will work to help patient for hospice care Code Status: Do Not Attempt Resuscitation Time spent on advance care plannin
== END 2020-04-09 12:40 | disposition hospice, home (50) ==
LOC: ED 08:43 → MS2 10:02
PROVIDERS: ADMIT Internal Medicine; ATTEND Nurse Practitioner Gerontology
DX: C16.9 Malignant neoplasm of stomach, unspecified (principal); C79.51 Secondary malignant neoplasm of bone; N17.9 Acute kidney failure, unspecified; E86.0 Dehydration; R53.1 Weakness; E43 Unspecified severe protein-calorie malnutrition; R68.81 Early satiety; R63.0 Anorexia; E11.9 Type 2 diabetes mellitus without complications; Z79.84 Long term (current) use of oral hypoglycemic drugs; I10 Essential (primary) hypertension; N39.0 Urinary tract infection, site not specified; Z91.81 History of falling; J43.9 Emphysema, unspecified; Z66 Do not resuscitate; Z86.13 Personal history of malaria; Z87.891 Personal history of nicotine dependence; Z51.5 Encounter for palliative care; E78.5 Hyperlipidemia, unspecified; Z79.899 Other long term (current) drug therapy
CPT/HCPCS: 36415; 80048; 80053; 81001; 83036; 83605; 83690; 83735; 84100; 84134; 85025; 87086; 87181; 96360; 96361; 97161; 97166; 99222; 99283; 99285; A9270; G0378; J7120

== ENCOUNTER 2020-04-13 19:19 | Outpatient (CLI) | payer MEDICARE, MEDICAID ==
--- NOTE | 2020-04-13 19:30 | CONSULTATION NOTE ---
Palliative Care Follow Up - Referral Referring Provider: Keara Yuen PA-C Time of Visit: [id number] Referral setting: Home Referral Reason: Met High grade Gastic adenocarcinoma/FTT - Information Sources Records reviewed: Previous records reviewed History/Review of Systems obtained from: Patient, Family (sister Sabi) Exam limitations: No limitations - History of Present Illness Update Brief HPI Update: This is a meir 80-year-old gentleman who presented with ongoing failure to thrive over the last couple months, and most acutely over the last 2 weeks. He did end up hospitalized with dehydration, ZEENAT, UTI, and protien calorie malnutrition, after he had a fall related to weakness at home. Patient had pre sented to his PCP with worsening weight loss, and had a CT scan on 03/31, which did show diffuse thickening of the gastric wall with mucosal thickening and soft density in submucosal layer. He has significant enlarged lymph nodes, as well as with extensive metastatic disease and innumerable osseous mets. He did proceed to have a biopsy, that did show high-grade gastric adenocarcinoma. When he presented to the ED, unfortunately the ED physician had to deliver this news, he did understand after much discussion he had stage IV disease, he is not interested in any surgery, and was quite frail. In the context of his goals, he did not want further follow-up with any oncology work-up, and chose to focus on comfort measures, and hospice. Unfortunately there was a long Q for the hospice admit, I had met him in a palliative care consult inpatient, and agreed to follow-up prior to his admit to hospice, as wanted to make sure it was a smooth transition. Patient presents today, is quite proud he had completed a couple things on his bucket list, including going to [employer] to have 1 of their fried onions, down to [place] to see where he wanted his ashes distributed, they have done fun eral plans, they are working on wrapping up his affairs. It is most likely attributed to his exposure to agent orange, and are pursuing through the [facility] further benefits. Interesting enough, he was also contacted by a class action suit around Zantac, she did fill out the information online. Patient does not present with any distress, he is quite weak, he is taking mostly iced Pedialyte, and fluids. He has not been able to swallow very well, we were looking at pill burden today, he is mostly sedentary can walk still a few steps, is quite comfortable in his bedroom. He has no pain, does not feel like he is depressed, has early satiety, and not much appetite but denies any abdominal pain or discomfort. He reports his bowels are moving, with some looseness but no robert bleeding or dark tarry stools. His abdomen is soft, nontender to palpation, his vital signs are stable, he just is quite weak. Social History - Living Situation Living arrangement: At home Living Situation: With family Support System: Patient lives at home with his sister, it is her home. He himself is . They have traveled extensively, patient has had a significant amount of financial stressors over the years, and moved here from [place]. They have been here the last 7 years, they are obviously quite fond of each other and quite pragmatic in their approach to this. Sabi's daughter does live in town, has been able to provide some support over the weekend, helping patient with his bucket list. Medications/Allergies - Medications Home Medications: Ambulatory Orders Medication Instructions Recorded Confirmed Finasteride 5 mg PO DAILY 03/07/19 04/13/20 Metformin HCl [Metformin HCl ER] 1,000 mg PO Q12H 03/07/19 04/13/20 atenoloL [Atenolol] 25 mg PO DAILY 03/07/19 04/13/20 Omeprazole 20 mg ORAL DAILY 04/02/20 04/08/20 Ciprofloxacin HCl [Cipro] 250 mg PO BID #12 tablet 04/09/20 04/13/20 LORazepam [Ativan] 0.5 mg PO Q6H PRN #20 tablet MDD 04/09/20 04/13/20 hold did not burr picker Morphine Sulfate [Morphine Sulf 5 mg PO Q4H PRN #30 ml 04/09/20 04/13/20 Oral (Roxanol)] dexAMETHasone [Decadron] 4 mg PO DAILY #10 tablet 04/09/20 04/13/20 - Allergies Allergies/Adverse Reactions: Allergies Allergy/AdvReac Type Severity Reaction Status Date / Time Penicillins Allergy Unknown Verified 04/08/20 08:54 Review of Systems - Constitutional Constitutional: reports: Fatigue, Weakness, Poor appetite, Weight loss. denies: Fever, Chills - Eyes Eyes: reports: Vision loss - Ears, Nose & Throat Ears, Nose & Throat: reports: Dry mouth - Cardiovascular Cardiovascular: reports: Lightheadedness, Decr. exercise tolerance - Respiratory Respiratory: reports: SOB with exertion. denies: Cough, SOB at rest - Gastrointestinal Gastrointestinal: reports: Diarrhea (intermittent), Poor appetite, Early satiety. denies: Constipation, Rectal bleeding, Black stools, Nausea, Reflux/heartburn - Genitourinary Genitourinary: reports: Frequency. denies: Dysuria - Musculoskeletal Musculoskeletal: reports: Stiffness, Muscle weakness, Joint pain (left shoulder discomfort), Assistive devices (has cane), Transfer issues (has wheelchair for longer distances) - Integumentary Integumentary: reports: Dryness - Neurological Neurological: reports: General weakness. denies: Memory problems - Psychiatric Psychiatric: reports: Depression (does not "feel" depressed wants to stop sertraline; sister felt he did better on it) - Endocrine Endocrine: reports: Diabetes type 2 (does not check BS) - Hematologic/Lymphatic Hematologic/Lymphatic: reports: Anemia (last hgb 9.7), Recurrent infections (utis) - All Other Systems All Other Systems: reports: Reviewed and negative Physical Exam - Vital Signs Temperature: 96.6 C Pulse Rate: 60 Respiratory Rate: 18 O2 Saturation: 99 (ra @ rest) Blood Pressure: 132/62 - Physical Exam General Appearance: positive: No acute distress, Alert Eyes Bilateral: positive: Normal inspection ENT: positive: Hearing loss, Dry mouth. negative: Mouth lesions Neck: positive: Trachea midline Cardiovascular: positive: Regular rate & rhythm Respiratory: positive: No respiratory distress. negative: Wheezes, Rales, Rhonchi Abdomen: positive: Non-tender, Soft, Nml bowel sounds, Distended (mild) Skin: positive: Pallor, Dryness Extremities: positive: No pedal edema Neurologic/Psychiatric: positive: Oriented x3, Mood/affect nml, Weakness Palliative Care - POLST Patient has POLST: Yes POLST Status: DNR, Comfort Measures Pain: No pain Tiredness/Fatigue: Moderate (4-6) Drowsiness/Sedation: None Nausea: None Anorexia: Severe (7-10), Weight loss Dyspnea: Moderate (4-6) (with activity) Depression: Mild (1-3) Anxiety: Mild (1-3) Feelings of wellbeing/Perceived Quality of Life: Fair, Acceptable, Worsening Sleep: Sleeps well Constipation: No Performance Status: Patient is quite weak, they have decided not to try and bathe. Though sister does have a walk-in shower, she does not trust he would be okay. They are doing bed baths, he is doing hard and she is doing is back. We did discuss home health aides for hospice can provide support regarding this. He is able to ambulate short distances, though spends most of his time in his bed, he is somewhat weak and ataxic. But his voice is stronger than it was in the hospital, and seems in good spirits. I would put him at a PPS of 40%.His trouble with swallowing, in particular increased trouble with pills. Very much interested in decreasing pill burden. - Palliative Care Discussion: Patient and sister are quite pragmatic, there is one thing left on his list, he would like to make contact with great-grandchild, they had seen him on Facebook, and are trying to reach out to family members. Sabi is trying to help him finish up her will, worried about notary, reportedly did have a notary on staff for hospice, they are trying to locate something easy online, as finances are significantly stressed for him. Though they do have his cremation prepaid for. He is picked out where he wants his ashes, and has gone to see where he will floating out to see and is satisfied. Reports he is not afraid of dying, he is worried about being a burden on his sister. He loves [employer] car racing, and is excited there is a race coming up this Monday. He was a [place] .He does have his POLST DNA R/DNI and comfort measures posted on the mondg appropriately. Impression and Recommendations - Palliative Care Impression: This is a 80-year-old gentleman with high-grade gastric adenocarcinoma, with extensive metastatic disease to his lymph nodes and innumerable osseous mets. He actually presents with fairly low symptom burden, other than fatigue and worsening functional status. He presents in good spirits, is having more trouble swallowing, and interested in decreasing pill burden. Palliative care providing support today to bridge patient to hospice admit on , addressed all questions as well as provided support and education. Recommendations/Counseling Done: 1. Anorexia. Patient is on dexamethasone 4 mg, is feeling little more peppier. He still has trouble eating and drinking, but they have found some work around with the Pedialyte, feels like the cold really decreases whenever distress is going on. He is eating only bites, expected him to continue to decline. Most likely can drop the dexamethasone fairly soon. 2. Medication adherence. We did go through his meds, discontinue the supplements, we did agree if he is feeling better later he can add back again, but right now need to focus on what is going to support him best. Did review use of morphine with sister, to be able to administer if needed for any kinds of pain or respiratory distress. She did acknowledge understanding, I did go over the syringe and how best to give this. Patient did not burr picker the lorazepam, but it is available if needed. Patient declined to continue sertraline, has been only taking it intermittently over the last couple weeks, though his sister felt like it was helpful. Agreed we would wait and see, given his most likely short prognosis, may benefit just as well from intermittent lorazepam and his dexamethasone for mood elevation. 3. Generalized weakness. Patient has had significant weight loss of 20% of his body mass over the last several months, he does have functional decline, and presents with failure to thrive. They do have a wheelchair, currently he is still ambulatory, he does not feel like he needs a hospital bed yet. They are looking forward to hospice support, would benefit from bathing, as well as ongoing coaching. 3. Advanced care planning. Patient is at peace with his goals, is working on getting his last documents together, including needing a will. They have added Sabi to his bank account to be able to help pay bills, are waiting to send in his son for his VA benefits, have finished her cremation arrangements, and is feeling like he has got things fairly wrapped up. He and his sister both pragmatic in their approach, psychosocial support and prescense provided. Patient does have POLST in home, it is on the fridge as directed. Time Spent: 45 minutes with greater than 50% of this done in counseling regarding deprescribing, anticipatory guidance, further education on hospice benefit, palliative care to continue to be available to provide support until transition to hospice on .
== END 2020-04-13 19:20 | disposition home or self-care (01) ==
LOC: PC 19:19
PROVIDERS: ATTEND Nurse Practitioner Adult Health
DX: Z51.5 Encounter for palliative care (principal); C16.9 Malignant neoplasm of stomach, unspecified; C79.51 Secondary malignant neoplasm of bone; C77.9 Secondary and unspecified malignant neoplasm of lymph node, unspecified; R62.7 Adult failure to thrive; R63.0 Anorexia; E11.9 Type 2 diabetes mellitus without complications; R53.1 Weakness; R27.0 Ataxia, unspecified; H54.7 Unspecified visual loss; Z91.81 History of falling; Z66 Do not resuscitate; Z79.891 Long term (current) use of opiate analgesic; Z79.52 Long term (current) use of systemic steroids; Z79.84 Long term (current) use of oral hypoglycemic drugs; Z79.899 Other long term (current) drug therapy
CPT/HCPCS: 99349